=== PATIENT | male | born 1945 | race Caucasian/White ===

== ENCOUNTER → 2017-08-25 07:09 | Outpatient (CLI) | payer MEDICARE, BC, SELFPAY ==
--- NOTE | 2017-08-25 07:22 | NM_ITS ---
CARDIOLITE SPECT MYOCARDIAL PERFUSION SCAN, REST AND STRESS: EXERCISE STRESS [facility] REVIEW QGS EF AND WALL MOTION EVALUATION: QPS - PERFUSION EVALUATION HISTORY: Abnormal EKG, HTN, Tobacco use DOSE: 10.56 mCi technetium 99m mibi intravenously at rest followed by 31.7 mCi technetium 99m mibi following the intravenous ministration of 0.4 mg of Lexiscan. Resting blood pressure is 161/78. Stress blood pressure 171/95. FINDINGS: Ejection fraction is calculated to be 55%. Stress images reveal mildly decreased activity in the inferior wall and a portion of the septum while rest images reveal uniform myocardial activity gated images calculated ejection fraction of 55% with normal wall motion IMPRESSION: Inferior ischemia with partial septal ischemia. Normal ejection fraction normal wall motion. This is a moderate risk stress test
--- NOTE | 2017-08-25 07:49 | CA_ITS ---
PROCEDURE: 2-D M-mode and color Doppler study INDICATIONS FOR THE TEST: Chest pain COPD Heart Murmur Tobacco SmokingEX Palpitations Fatigue Syncope Edema Hypertension Diabetes Mellitus Rheumatic Fever SOB DOWNING ObesityXHyperlipidemia Family History HD Additional History AF,ABN EKG TDS OBESITY PATIENT INFORMATION HEIGHT: 74 WEIGHT:280 GENDER: Male B/P:161/78 2-D/M-MODE INTERPRETATION: 2-D MEASUREMENTS OBSERVED VALUES IN CMS Right Ventricular Dimension (RVDd) 3.7 Interventricular Septum (Thickness)(IVsd) 1.7 Left Ventricular Internal Dimensions(LVIDd) 5.5 Left Ventricular Posterior Wall (Thickness)(LVPWd) 1.3 Aortic Root 4.1 Aortic Cusp Separation 1.9 Left Atrial Dimensions (LAD) 4.2 2D 1. Left atrium is mildly enlarged, left ventricle is normal size, mild concentric left ventricular hypertrophy, visually estimated ejection fraction 55% with no obvious regional wall motion abnormality, endocardial poorly visualized. 2. The right atrium and right ventricle are mildly enlarged with normal contractility. 3. The aortic root is mildly enlarged, measuring 4.1 cm. The aortic valve is minimally thickened and fibrosed. 4. The mitral and tricuspid valve are grossly normal. 5. The pulmonic valve is poorly visualized 6. No significant pericardial effusion noted. DOPPLER INTERROGATION: Doppler interrogation of the aortic, mitral and tricuspid valve reveals presence of mild aortic, mild mitral and tricuspid regurgitation, tricuspid regurgitant jet velocity insufficient for calculation of the right ventricular systolic pressure, diastolic parameters are inconclusive. CONCLUSION: 1. Technically difficult study because of the patient's factor and poor acoustic windows 2. The left atrium is mildly enlarged, left ventricle is normal size, mild concentric left ventricular hypertrophy, visually estimated ejection fraction 55% with no obvious regional wall motion abnormality, endocardial subsequent poorly visualized. 3. Mildly enlarged right atrium and right ventricle, contractility of the right ventricle is normal. 4. Mildly enlarged aortic root, there is no aortic stenosis, there is mild aortic insufficiency. 5. Mild mitral and tricuspid regurgitation 6. No significant pericardial effusion noted.
--- NOTE | 2017-08-25 08:07 | HMH.ITSHM ---
BISOPROLOL ATORVASTATIN ALLOPURINOL MONTELUKAST LOSARTAN XARELTO ASA
== END ==
PROVIDERS: PCP Family Medicine; Visit Provider Internal Medicine
DX: R94.31 Abnormal electrocardiogram [ECG] [EKG] (principal)
CPT/HCPCS: 78452; 93017; 93306; A9502; J2785

== ENCOUNTER → 2018-05-07 13:25 | Outpatient (CLI) | payer MEDICARE, BC, SELFPAY ==
--- NOTE | 2018-05-07 13:29 | MR_ITS ---
MR lumbar spine wo con, MR 3-d myelogram/MRCP HISTORY: Low back pain ITS.REASON: BACK PAIN ORDERING PHYSICIAN: Lisandro Shelby PATIENT AGE: 73 years Comparison: None TECHNIQUE: Standard multiplanar multiecho sequences are performed without contrast. 3-D MIP and myelographic images are also rendered and reviewed FINDINGS: There is normal alignment. The spinal cord and at the L1-L2 level. T12-L1: Mild degenerative disc disease. L1-L2: Unremarkable. L2-L3: Unremarkable. L3-L4: Degenerative disc disease with bulging disc slightly eccentric toward the left along with facet and ligamentum flavum hypertrophy with moderate bilateral lateral recess and foraminal narrowing. There is transverse narrowing of the canal at approximately 11 to 12 mm. There are type II endplate changes and there is moderate bilateral foraminal narrowing slightly greater on the left. There is a small broad-based central disc protrusion slightly eccentric toward the left with moderate left lateral recess narrowing. L4-L5: Concentric bulging disc with a small broad-based central disc protrusion along with moderate facet and ligamentum flavum hypertrophy with moderate bilateral foraminal and lateral recess narrowing. There is transverse narrowing of the canal secondary to the facet ligamentum hypertrophy of approximately 12 mm. L5-S1: Moderate to severe Degenerative disc disease with concentric bulging disc along with a small broad-based central disc protrusion which is slightly eccentric toward the left. There is moderate to severe left-sided foraminal narrowing and moderate right-sided foraminal narrowing as well as bilateral lateral recess narrowing. There is mild retrolisthesis of L5 on S1 3 mm with small posterior endplate osteophytes. There are small bilateral renal cysts. IMPRESSION: 1. Mild multilevel lumbar spondylosis as detailed above. Please see above for detailed description at each level 2. L3-L4: Degenerative disc disease with bulging disc slightly eccentric toward the left along with facet and ligamentum flavum hypertrophy with moderate bilateral lateral recess and foraminal narrowing. There is transverse narrowing of the canal at approximately 11 to 12 mm. There are type II endplate changes and there is moderate bilateral foraminal narrowing slightly greater on the left. There is a small broad-based central disc protrusion slightly eccentric toward the left with moderate left lateral recess narrowing. 3. L4-L5: Concentric bulging disc with a small broad-based central disc protrusion along with moderate facet and ligamentum flavum hypertrophy with moderate bilateral foraminal and lateral recess narrowing. There is transverse narrowing of the canal secondary to the facet ligamentum hypertrophy of approximately 12 mm. 4. L5-S1: Moderate to severe Degenerative disc disease with concentric bulging disc along with a small broad-based central disc protrusion which is slightly eccentric toward the left. There is moderate to severe left-sided foraminal narrowing and moderate right-sided foraminal narrowing as well as bilateral lateral recess narrowing. There is mild retrolisthesis of L5 on S1 3 mm with small posterior endplate osteophytes.
--- NOTE | 2018-05-07 13:29 | MR_ITS ---
MR thoracic spine wo con HISTORY: Midthoracic back pain more on the left ITS.REASON: BACK PAIN ORDERING PHYSICIAN: Lisandro Shelby PATIENT AGE: 73 years Comparison: None TECHNIQUE: Standard multiplanar multiecho sequences are performed without contrast. 3-D MIP and myelographic images are also rendered and reviewed FINDINGS: There is kyphosis of the lower cervical spine at the T6-T7 level with multilevel degenerative disc disease. Small bola based disc protrusion/disc osteophyte complex noted at C6-C7. The degenerative disc disease at C7-T1. T1-T2 shows minimal bulging disc. T2-T3 unremarkable. T3-T4 mild degenerative disc disease. T4-T5: Moderate wedging of T4 with severe wedging of T5 and mild posterior buckling of the T5 vertebral body. No cord compression or canal stenosis evident at this time. T5-T6: Degenerative disc disease. T6-T7: Degenerative disc disease with minimal central disc protrusion. T7-T8, T8-T9: Degenerative disc disease. T9-T10: Degenerative disc disease with bulging disc with facet hypertrophic change and mild bilateral lateral recess and foraminal narrowing slightly greater on the right. T10-T11: Mild degenerative disc disease. T11-T12: Mild degenerative disc disease. There is a midthoracic scoliosis convex right. Severe wedge compression changes are present involving the T5 vertebral body with near complete collapse of the mid and anterior aspect of the T5 vertebral body. There is mild retropulsion of the posterior aspect of T5 with kyphosis at the T5 level. There are moderate wedge compression changes of T4 with loss of height anteriorly of approximately 40%. There is minimal buckling of the posterior cortex of T4. There is an expansile mass which involves the medial aspect of the left fourth rib measuring 3.6 x 3.5 cm. This extends to but does not cause widening of the neural foramen on the left at T3-T4. This is slightly hypointense on T1 and becomes hyperintense on T2 there is a small area of increased T2 signal involving the right T6 transverse process. IMPRESSION: 1. Severe wedge compression changes of T5 and moderate wedge compression changes of T4. Minimal retropulsion of the posterior aspect of T5 and minimal buckling of the posterior cortex of T4. No cord compression evident at this time 2. Expansile mass involving the left fourth rib medially at the costovertebral junction suspicious for neoplasm such as a metastatic lesion.. There is also question of a lesion at the right T6 transverse process. Consider bone scan for further evaluation 3. Multilevel degenerative disc disease in the thoracic spine and cervical as detailed above. Please see above for detailed description at each level
== END ==
PROVIDERS: PCP Family Medicine; Visit Provider Family Medicine
DX: M54.16 Radiculopathy, lumbar region
CPT/HCPCS: 72146; 72148; 76376

== ENCOUNTER → 2018-05-20 08:27 | Outpatient (CLI) | payer MEDICARE, BC, SELFPAY ==
--- NOTE | 2018-05-20 08:31 | NM_ITS ---
NM bone scan whole body CLINICAL INDICATION: Back pain, destructive rib lesion ITS.REASON: MASS LT 4TH RIB, LESIONS RT T6 ORDERING PHYSICIAN: Lisandro Shelby PATIENT AGE: 73 years Comparison: 05/07/2018, 05/20/2018 DOSE: 25.6 mCi technetium MDP FINDINGS: There is focal increased activity involving the T4 and T5 vertebral bodies corresponding to the areas of acute wedge compression fracture. There is a lytic lesion involving the left Fourth rib medially at the costovertebral junction as seen on the recent CT scan. This shows a photopenic region corresponding to the lytic area. In addition, there is increased activity involving the left ninth rib anteriorly corresponding to an old fracture on the CT scan. There is slight increase activity involving the posterior aspect of the right 10th rib and a small focal area of increased activity involving what appears to represent C7 or T1. IMPRESSION: 1. Abnormal activity involving the fourth and fifth thoracic vertebra consistent with acute wedge compression fracture. 2. Photopenic area involves the right fourth rib medially corresponding to the lytic lesion as seen on CT scan. 3. Old left ninth rib fracture. Overall the findings are somewhat indeterminate as to the etiology of the compression fractures which may very well just be osteoporotic however, the lytic lesion at the fourth rib does raise some concern for metastatic disease.
--- NOTE | 2018-05-20 08:32 | XR_ITS ---
XR chest 2V HISTORY: ITS.REASON: CHEST PAIN, left paraspinal mass ORDERING PHYSICIAN: Lisandro Shelby PATIENT AGE: 73 years COMPARISON: None FINDINGS: There is cardiomegaly without failure. There is a left upper lobe paraspinal mass measuring 4.3 cm. This corresponds to the lesion noted on the MRI at the T4 area. In addition, there are atelectatic changes in the left mid lung. There is also diffuse increased density in the right middle lobe. Wedge compression changes are once again noted involving the T5 vertebral body with mild wedging of T4. IMPRESSION: 1. 4 cm left paraspinal mass suspicious for malignancy. This corresponds to the abnormality noted on the MRI. 2. There are atelectatic changes in the left midlung. These were not present on an outside chest CT from 10/14/2016. A postobstructive process is a consideration. 3. Consolidation in the right middle lobe which also could be due to postobstructive process or pneumonia. Suggest CT of the chest without and with contrast for further evaluation and for biopsy planning if clinically desired
--- NOTE | 2018-05-20 10:14 | CT_ITS ---
CT chest wo/w con HISTORY: Left fourth rib mass, abnormal chest x-ray with possible hilar mass ITS.REASON: ABNORMAL FINDINGS IN LUNG FIELD ORDERING PHYSICIAN: Lisandro Shelby PATIENT AGE: 73 years COMPARISON: None Technique: Axial images obtained following the intravenous administration of 50 mL's of Isovue 370 with sagittal and coronal reformats. All CT scans at the facility use one or more dose reduction, viz: automated exposure control, ma/kV adjustment per patient size (including targeted exams where dose is matched to indication, i.e. head), or iterative reconstruction technique. FINDINGS: Study is somewhat limited as the patient had to be scanned in the right posterior oblique position. No mediastinal or hilar mass is evident. Coronary artery calcifications are present. There is prominence of the ascending aorta measuring up to 4.5 cm in transverse dimension. Patchy groundglass density is noted throughout the right upper and right lower lobe possibly due to positioning with that being the dependent lung. Atelectatic changes are present in the left upper lobe centrally but no central obstructing lesion is evident. No suspicious pulmonary masses are evident. Calcified nodes are present in the left hilum. There is a 3.5 cm lytic lesion involving the medial aspect of the left fourth rib with destruction of the costovertebral junction. There is also some mild destruction of the lateral aspect of the T4 vertebral body. This mass does not appear to extend to or arises from the neural foramen. In addition, there is compression fracture involving the T4 and T5 vertebra as described on the MRI severe wedging of T5 and moderate wedge compression fracture of T4. It is difficult to determine if the T5 fracture is pathologic due to the severe wedging or if it is merely secondary to osteoporotic compression fracture. No obvious soft tissue mass evident at the T4 or T5 region. No other bony abnormalities are evident. Upper abdominal images show postcholecystectomy changes. IMPRESSION: 1. 3.5 cm lytic lesion involving the medial aspect of the left fourth rib destruction the costovertebral junction. Neoplasm is considered and could be primary or metastatic. 2. Severe wedge compression fracture of T5 with moderate to severe wedge compression fracture T4. 3. No evidence of primary bronchogenic carcinoma. There are atelectatic changes in the left upper lobe. 4. Coronary artery calcifications with mild fusiform dilatation of the ascending aorta at 4.5 cm
--- NOTE | 2018-05-20 11:09 | HMH.ITSHM ---
Current Home Medications as stated by this patient Camilo Briceno JR or health and safety representative. []spironolactone bisoprolol asa atorvastatin allopurinol albuterol
[2018-05-20 12:32] LABS: Blood Urea Nitrogen 22 mg/dL (7-18); Creatinine,Serum 1.68 mg/dL (0.70-1.30); Estimated Glomerular Filt Rate 40 ml/min (>60); GFR (African American) 48 ML/MIN (>60)
== END ==
PROVIDERS: PCP Family Medicine; Referring Provider Family Medicine; Visit Provider Family Medicine
DX: R07.9 Chest pain, unspecified (principal); R91.8 Other nonspecific abnormal finding of lung field; C79.51 Secondary malignant neoplasm of bone
CPT/HCPCS: 36415; 71046; 71270; 78306; 82565; 84520; A9503; Q9967

== ENCOUNTER → 2018-06-03 10:07 | Outpatient (CLI) | payer MEDICARE, BC, SELFPAY ==
[2018-06-03 13:02] LABS: Basophils # 0.1 K/mm3 (0-0.2); Basophils % 0.5 % (0.1-2.0); Eosinophils # 0.1 K/mm3 (0.0-0.4); Eosinophils % 1.2 % (0.1-12.0); Hematocrit 45.3 % (42.0-52.0); Hemoglobin 13.9 g/dL (14.1-18.0); Lymphocytes # 1.7 K/mm3 (0.7-4.5); Mean Corpuscular HGB Conc 30.8 g/dL (31.8-35.4); Mean Corpuscular Hemoglobin 31.4 pg (27.0-31.2); Mean Corpuscular Volume 101.8 fl (80-94); Mean Platelet Volume 7.1 fl (7.4-10.4); Monocytes # 0.9 K/mm3 (0.1-1.0); Neutrophils % 74.3 % (37.0-80.0); Platelet Count 331 K/mm3 (142-424); Red Blood Count 4.44 M/mm3 (4.60-6.20); Red Cell Distribution Width 14.5 % (11.5-17.5); White Blood Count 10.8 K/mm3 (4.8-10.8)
[2018-06-03 13:22] LABS: Alanine Aminotransferase 31 U/L (12-78); Albumin Level 2.3 gm/dL (3.4-5.0); Albumin/Globulin Ratio 0.3 (1.1-1.8); Alkaline Phosphatase 66 U/L (46-116); Anion Gap 13.2 mEq/L (5-15); Aspartate Amino Transferase 32 U/L (15-37); Bilirubin,Total 0.8 mg/dL (0.2-1.0); Blood Urea Nitrogen 23 mg/dL (7-18); Calcium 9.3 mg/dL (8.5-10.1); Carbon Dioxide 25 mmol/L (21.0-32.0); Chloride 100 mmol/L (98-107); Creatinine,Serum 1.45 mg/dL (0.70-1.30); Estimated Glomerular Filt Rate 47 ml/min (>60); GFR (African American) 57 ML/MIN (>60); Globulin 6.6 gm/dl (1.3-3.2); Glucose 105 mg/dL (74-106); Potassium 4.2 mmoL/L (3.5-5.1); Sodium 134 mmol/L (136-145); Total Protein,Serum 8.9 gm/dL (6.4-8.2)
[2018-06-03 15:40] LABS: Prostate Specific Ag Screen 0.6 ng/mL (0.0-4.0)
[2018-06-04 15:23] LABS: Free Kappa Lt Chains 1170.7 mg/L (3.3-19.4); Free Lambda Lt Chains 5.7 mg/L (5.7-26.3)
[2018-06-04 16:19] LABS: Alpha-1-Globulin 0.3 g/dL (0.0-0.4); Alpha-2-Globulin 0.9 g/dL (0.4-1.0); Gamma Globulin 3.5 g/dL (0.4-1.8); Immunoglobulin G, Qn 3861 mg/dL (700-1600); Protein, Total 8.7 g/dL (6.0-8.5)
[2018-06-04 17:14] LABS: Immunoglobulin A, Qn 26 mg/dL (61-437)
[2018-06-04 17:15] LABS: Immunoglobulin M, Qn <5 mg/dL (15-143)
== END ==
PROVIDERS: Visit Provider Internal Medicine Medical Oncology
DX: C79.51 Secondary malignant neoplasm of bone (principal); Z12.5 Encounter for screening for malignant neoplasm of prostate
CPT/HCPCS: 36415; 80053; 82784; 83883; 84155; 84165; 85025; 86334; G0103

== ENCOUNTER 2018-06-20 23:24 | Inpatient (IN) ==
[2018-06-20 23:52] LABS: Basophils % 0.3 % (0.1-2.0); Eosinophils # 0.1 K/mm3 (0.0-0.4); Eosinophils % 0.7 % (0.1-12.0); Hematocrit 42.6 % (42.0-52.0); Hemoglobin 13.9 g/dL (14.1-18.0); Lymphocytes # 2.1 K/mm3 (0.7-4.5); Lymphocytes % 18.5 % (10-50); Mean Corpuscular HGB Conc 32.6 g/dL (31.8-35.4); Mean Corpuscular Hemoglobin 31.9 pg (27.0-31.2); Mean Corpuscular Volume 97.9 fl (80-94); Mean Platelet Volume 6.5 fl (7.4-10.4); Monocytes # 1.3 K/mm3 (0.1-1.0); Monocytes % 11.6 % (1.7-9.3); Neutrophils # 7.9 K/mm3 (1.8-7.8); Neutrophils % 68.8 % (37.0-80.0); Platelet Count 310 K/mm3 (142-424); Red Blood Count 4.35 M/mm3 (4.60-6.20); Red Cell Distribution Width 15.1 % (11.5-17.5); White Blood Count 11.4 K/mm3 (4.8-10.8)
[2018-06-20 23:58] LABS: Microscopic, Urine URINE MICROSCOPIC (MICROSCOPIC)
--- NOTE | 2018-06-21 00:06 | Emergency Department Note ---
ED Disposition Clinical Impression: Diverticulitis large intestine, Altered mental status, shelter current use of anticoagulant, Thoracic back pain, Bone mass Disposition: Admitted as Observation Condition on Discharge: Good Instructions: DI for Altered Mental Status Referrals: Lisandro Shelby [Primary Care Provider] - Time of Disposition: 01:34 - Critical Care Critical Care Time: No Attestation: On 06/20/18, the high probability of a clinically significant, sudden or life threatening deterioration of the following system(s) required my full and direct attention, intervention and personal management. The time I documented below is in addition to time spent performing reported procedures but includes the following listed in this critical care notation. Medical Decision Making - Medical Records Medical records reviewed: Yes: I reviewed the patient's medical records. - Hector Inquiry Pt receiving controlled substance: No Hector was queried for this patient: No Vital Signs: 06/20/18 23:25 06/21/18 01:17 Temperature 98.1 F 98.2 F Temperature Source Oral Oral Pulse Rate [Right Radial] 71 72 Respiratory Rate 18 16 Blood Pressure [Right Arm] 158/96 H 150/77 H Blood Pressure Mean [Right Arm] 116 101 Blood Pressure Position [Right Arm] Sitting 02 Sat by Pulse Oximetry 94 L 97 Oxygen Delivery Method Room Air Room Air - Lab Data Lab Results 06/20/18 23:40: WBC 11.4 H, RBC 4.35 L, Hgb 13.9 L, Hct 42.6, MCV 97.9 H, MCH 31.9 H, MCHC 32.6, RDW 15.1, Plt Count 310, MPV 6.5 L, Neut % (Auto) 68.8, Lymph % (Auto) 18.5, [place] % (Auto) 11.6 H, Eos % (Auto) 0.7, Baso % (Auto) 0.3, Neut # (Auto) 7.9 H, Lymph # (Auto) 2.1, [place] # (Auto) 1.3 H, Eos # (Auto) 0.1, Baso # (Auto) 0.0, ESR > 120 H 06/20/18 23:40: Sodium 136, Potassium 3.9, Chloride 101, Carbon Dioxide 27, Anion Gap 11.9, BUN 25 H, Creatinine 1.73 H, Estimated Creat Clear 58, Estimated GFR 39 L, Est GFR ( Amer) 47 L, Glucose 114 H, Calcium 9.3, Total Bilirubin 0.7, AST 13 L, ALT 19, Alkaline Phosphatase 73, Troponin I < 0.02, C- Reactive Protein 0.7, Total Protein 9.7 H, Albumin 2.3 L, Globulin 7.4 H, Albumin/Globulin Ratio 0.3 L 06/20/18 23:43: Urine Color Yellow, Urine Appearance Clear, Urine pH 5.5, Ur Specific [place] >= 1.030, Urine Protein 2+, Urine Glucose (UA) Negative, Urine Ketones Negative, Urine Blood Negative, Urine Nitrate Negative, Urine Bilirubin Negative, Urine Urobilinogen 0.2, Ur Leukocyte Esterase Negative, Urine WBC Occasional, Amorphous Sediment Trace 06/20/18 23:53: Urine Opiates Screen Positive H, Urine Methadone Screen Negative, Ur Barbituates Screen Negative, Ur Phencyclidine Scrn Negative, Ur Amphetamines Screen Negative, U Benzodiazepines Scrn Negative, Urine Cocaine Screen Negative, U Marijuana (THC) Screen Negative Result diagrams: 06/20/18 23:40 06/20/18 23:40 Orders (Tests/Meds): ED MEDICATIONS Generic Name Dose Route Start Last Admin Trade Name Freq PRN Reason Stop Dose Admin Ceftriaxone Sodium 2 gm/ 100 mls @ 200 mls/hr 06/21/18 01:00 06/21/18 01:01 Sodium Chloride IV 07/05/18 00:59 200 mls/hr Q24H VALERIA Administration Protocol Metronidazole 500 mg in 100 mls @ 100 mls/hr 06/21/18 01:00 Flagyl 500mg/100ml Ivpb IV 07/05/18 00:59 Q8H VALERIA Protocol Sodium Chloride 10 ml 06/20/18 23:41 Saline Flush 10ml Syringe IV 07/20/18 23:40 NEEDED PRN Maintain IV Site ORDERS Category Date Time Status CT abdomen pelvis wo con Stat Cat Scan 06/21/18 00:[address] head/brain wo con Stat Cat Scan 06/20/18 23:41 Taken XR chest portable Stat Exams 06/21/18 00:01 Taken Urinalysis and Microscopic Stat Lab 06/20/18 23:43 Ordered - Radiology Data #2 Image(s): Other (ct brain) negative brain for acute findings - CT Data CT Scan: Abdomen, Pelvis Time Received: 12:[address] Reviewed: Yes: I have reviewed the patient's CT results Findings Narrative: c/w diverticulitis, localized and without evidence of perf sigmoid colon. Altered Mental Status HPI - General Chief Complaint: Altered Mental Status Stated Complaint: Confused Time Seen by Provider: 06/20/18 23:30 Mode of Arrival: Wheelchair Limitations: confused Description of Symptoms (Recalled from ER Triage Doc. by RN): patients son and reports increased confusion over the past few days, reports patient had back surgery last week and medication was changed from oxycontin to hydrocodone - History of Present Illness HPI narrative: balloon cemented kyphoplasty 5 days ago. Confusion on oxycodone. Switched to hydrocodone and risperdal added for behavioral changes. No improvement, now worsening. Family states he had compression fractures upper t spine without injury, concern is of multiple myelom per Dr. Gill of [facility] on. Had biopsy , results pending. - Related Data Home Medications Medication Instructions Recorded Confirmed allopurinol 300 mg tablet 300 mg PO DAILY tab 08/27/17 06/21/18 aspirin 81 mg tablet,delayed 81 mg PO DAILY tab 08/27/17 06/21/18 release montelukast 10 mg tablet 10 mg PO QHS 08/27/17 06/21/18 rivaroxaban 20 mg tablet 20 mg PO DAILY tab 08/27/17 06/21/18 atorvastatin 20 mg tablet 20 mg PO QHS tab 11/25/17 06/21/18 bisoprolol fumarate 5 mg tablet 2.5 mg PO DAILY tab 11/25/17 06/21/18 fluticasone 50 mcg/actuation nasal 1 spray INTRANASAL DAILY PRN g 11/25/17 06/21/18 spray,suspension furosemide 40 mg tablet 40 mg PO DAILY 30 Days #30 tab 03/24/18 06/21/18 spironolactone 50 mg tablet 50 mg PO DAILY 30 Days #30 tab 03/24/18 06/21/18 Albuterol Sulfate [Albuterol 2.5 mg INHALATION QID 05/13/18 06/21/18 0.083% 2.5mg/3mL neb] risperiDONE [Risperidone] 0.5 mg PO DAILY 06/21/18 06/21/18 Previous Rx's Medication Instructions Recorded Hydrocodone/Acetaminophen 1 each PO Q4-6H PRN #20 tab 05/13/18 [Hydrocodon-Acetaminoph 7.5-325] Allergies Allergy/AdvReac Type Severity Reaction Status Date / Time No Known Allergies Allergy Verified 06/03/18 09:06 [facility] History - Hepatitis A Screen Drug use history?: No High risk sexual behaviors?: No History of sexually transmitted infection?: No Currently employed?: No Childcare worker?: No Do you have indoor plumbing?: Yes Do you have electricity?: Yes Attestation statement:: This patient has been screened for Hepatitis A risk factors. I have reviewed the patient's past medical history: Yes Medical History: Reports:: Atrial Fibrillation, Congestive Heart Failure, Hyperlipidemia, Hypertension, Lung Disease (smoker) Denies:: Cancer, Diabetes Mellitus Type 1, Diabetes Mellitus Type 2, Internal Pacemaker, MRSA, Seizures Other Medical History: Denies: Blood Transfusion Reaction Laterality Cases: Bilateral: Myringotomy (Ear Tubes), Other Other Surgeries: Yes: Cardiac Catheterization, Cholecystectomy, Sinus Surgery. No: Pacemaker Amputation: No Fractures: No Comment: [facility] MAR 2018-medical mgt - Social History Smoking Status: Current every day smoker Tobacco Type: cigarettes # Packs/Day (cigarettes): 1 Alcohol Intake: never Substance Use Type: denies use Occupational Status: retired Housing: house Household Members: spouse - Psychiatric History Expresses thoughts of harming self/others: None Suicide Plan Description: No Plan Family Hx:: Heart Attack Comment: mother had sudden cardiac at age 42 ROS Obtained: Yes All systems reviewed & no additional complaints, Yes other (only some history obtainable from patient, confused.) - Constitutional Constitutional: Denies chills, Denies fever(s) - Eyes Eyes: Reports system reviewed and no additional complaints, except as docu, Denies change in vision - Cardiovascular Cardiovascular: Denies chest pain, Denies diaphoresis, Denies dyspnea, Denies rapid heart rate, Denies slow heart rate - Respiratory Respiratory: Yes system reviewed and no additional complaints, except as docu, No chest congestion, No cough, No dyspnea - Gastrointestinal Gastrointestingal: Reports: system reviewed and no additional complaints, except as docu, abdominal pain. Denies: diarrhea, bright red blood in stools, nausea, vomiting - Genitourinary Male Genitourinary: Reports system reviewed and no additional complaints, except as docu, Denies difficulty urinating - Musculoskeletal Musculoskeletal: Denies limited range of motion, Denies muscle weakness, Denies muscle aches - Integumentary/Breasts Skin/Breast: Denies rash - Neurologic Neurologic: Reports behavioral changes, Denies focal weakness, Denies headache(s), Denies loss of vision, Denies tingling/numbness/burning sensations, Denies seizure-like activity, Denies syncope, Denies tremor(s) Physical Exam - General General appearance: alert, other (confused to date, place, circumstances.) - Head Head exam: atraumatic, normocephalic, normal inspection - Eye Eye exam: Present: normal appearance, PERRL, EOMI - Neck Neck exam: Present: normal inspection, full ROM, trachea midline. Absent: meningismus, lymphadenopathy - Chest Chest inspection: Present: normal inspection, symmetric chest wall rise. Absent: tenderness - Respiratory Respiratory exam: Present: normal lung sounds bilaterally. Absent: respiratory distress - Cardiovascular Cardiovascular exam: Present: regular rate, irregular rhythm - Abdominal Exam Abdominal exam: Present: soft. Absent: distention, tenderness, guarding, rebound, rigidity, mass - Extremities Exam Extremities exam: Present: normal inspection, full ROM, normal capillary refill. Absent: calf tenderness - Neurological Exam Neurological exam: Present: alert, oriented X3 - Psychiatric Psychiatric exam: Present: other (lies quietly, confused with conversation. Not agitated). Absent: normal affect, normal mood, anxious - Skin Skin exam: Present: warm, dry, normal color. Absent: rash - Lymphatic Lymphatic Findings: no adenopathy
[2018-06-21 00:10] LABS: Amphetamine/Metha Screen,Urine Negative ng/mL (<1000); Barbiturates Screen,Urine Negative ng/mL (<200); Benzodiazepines Screen,Urine Negative ng/mL (<200); Cannabinoid Screen,Urine Negative ng/mL (<50); Cocaine Screen,Urine Negative ng/mL (<300); Methadone Screen,Urine Negative ng/mL (<300); Opiate Screen,Urine Positive ng/mL (<300); Phencyclidine Screen,Urine Negative ng/mL (<25)
[2018-06-21 00:10] LABS: Alanine Aminotransferase 19 U/L (12-78); Albumin Level 2.3 gm/dL (3.4-5.0); Albumin/Globulin Ratio 0.3 (1.1-1.8); Alkaline Phosphatase 73 U/L (46-116); Anion Gap 11.9 mEq/L (5-15); Aspartate Amino Transferase 13 U/L (15-37); Bilirubin,Total 0.7 mg/dL (0.2-1.0); Blood Urea Nitrogen 25 mg/dL (7-18); C-Reactive Protein 0.7 mg/L (0.0-0.9); Calcium 9.3 mg/dL (8.5-10.1); Carbon Dioxide 27 mmol/L (21.0-32.0); Chloride 101 mmol/L (98-107); Globulin 7.4 gm/dl (1.3-3.2); Glucose 114 mg/dL (74-106); Potassium 3.9 mmoL/L (3.5-5.1); Sodium 136 mmol/L (136-145); Total Protein,Serum 9.7 gm/dL (6.4-8.2)
[2018-06-21 00:14] LABS: Appearance,Urine CLEAR (Clear); Bilirubin,Urine Negative (Negative); Blood, Urine Negative (Negative); Color,Urine YELLOW (Yellow); Glucose,Urine (UA) Negative (Negative); Ketones,Urine Negative (Negative); Leukocyte Esterase,Urine Negative (Negative); PH,Urine 5.5 (5.0-8.5); Protein,Urine 2+ (Negative); Specific Gravity, Urine >= 1.030 (1.005-1.030); Urobilinogen,Urine 0.2 EU/dl (0.2)
[2018-06-21 00:16] LABS: Amorphous Sediment,Urine Trace /lpf; WBC,Urine Occasional #/hpf (0-3)
[2018-06-21 00:40] LABS: Erythrocyte Sedimentation Rate > 120 mm/hr (0-20)
[2018-06-21 06:50] LABS: Basophils # 0.1 K/mm3 (0-0.2); Basophils % 0.5 % (0.1-2.0); Eosinophils # 0.1 K/mm3 (0.0-0.4); Eosinophils % 0.8 % (0.1-12.0); Hematocrit 39.6 % (42.0-52.0); Lymphocytes # 1.9 K/mm3 (0.7-4.5); Lymphocytes % 17.9 % (10-50); Mean Corpuscular HGB Conc 32.7 g/dL (31.8-35.4); Mean Corpuscular Hemoglobin 32.1 pg (27.0-31.2); Mean Corpuscular Volume 97.9 fl (80-94); Mean Platelet Volume 6.6 fl (7.4-10.4); Monocytes # 0.7 K/mm3 (0.1-1.0); Monocytes % 7.2 % (1.7-9.3); Neutrophils # 7.6 K/mm3 (1.8-7.8); Neutrophils % 73.6 % (37.0-80.0); Platelet Count 261 K/mm3 (142-424); Red Blood Count 4.04 M/mm3 (4.60-6.20); White Blood Count 10.3 K/mm3 (4.8-10.8)
[2018-06-21 07:08] LABS: Anion Gap 11.6 mEq/L (5-15); Calcium 8.9 mg/dL (8.5-10.1); Potassium 3.6 mmoL/L (3.5-5.1)
--- NOTE | 2018-06-21 08:08 | Pharmacy Consult Notes ---
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
--- NOTE | 2018-06-21 08:49 | History & Physical Report ---
*Admission Date: 06/21/18 *Chief complaint: Confusion and fever *History of present illness: 73-year-old white male who follows with a primary care physician in [facility], who over the past couple of months has had significant problems with vertebral pain and fractures, and has been diagnosed with possible multiple myeloma -biopsies pending and workup is ongoing per Dr. Gill in hematology/oncology. He has undergone vertebroplasty 5 or 6 days ago, and since that time is become very confused and somewhat combative at home. Initially he had been placed on oxycodone but this was changed to hydrocodone because of his mental status changes and he was given Risperdal therapy. This has not improved and he was brought to the emergency department by his family late last night. The family is not here this morning and Mr. Briceno is a very poor historian because of his memory issues and ongoing delirium. However, ER workup revealed a new mass in the chest, anemia, renal insufficiency and evidence of diverticulosis/diverticulitis on CT scan of the abdomen. He has been admitted to hospital for IV antibiotics. IV fluids and further diagnostic testing. [facility] History I have reviewed the patient's past medical history: Yes Medical History: Reports:: Atrial Fibrillation, Cancer, Congestive Heart Failure, Hyperlipidemia, Hypertension, Lung Disease (smoker) Denies:: Diabetes Mellitus Type 1, Diabetes Mellitus Type 2, Internal Pacem cathleen, MRSA, Seizures Have you ever received a pneumonia vaccine?: Yes Have you received a flu vaccine this season?: Yes Other Medical History: Denies: Blood Transfusion Reaction Laterality Cases: Bilateral: Myringotomy (Ear Tubes), Other Other Surgeries: Yes: Cardiac Catheterization, Cholecystectomy, Sinus Surgery. No: Pacemaker Amputation: No Fractures: No - *Social History Smoking Status: Current every day smoker Tobacco Type: cigarettes # Packs/Day (cigarettes): 1 Alcohol Intake: never Substance Use Type: denies use Occupational Status: retired, disabled Housing: house Household Members: spouse Travel in the last 8 weeks: None - Psychiatric History Expresses thoughts of harming self/others: None Suicide Plan Description: No Plan Family Hx:: Anemia, Heart Attack Review of Systems - Review of Systems Review of systems:: unable to obtain Review of systems unreliable because of patient's mental status changes. He denies specific pains or breathing problems however. - *Neurologic Reports behavioral changes, Denies localized weakness, Denies headache(s), Denies loss of vision, Denies tingling/numbness/burning sensations, Denies seizure-like activity, Denies fainting, Denies tremor(s) Meds Home Medications Medication Instructions Recorded Confirmed Type allopurinol 300 mg tablet 300 mg PO DAILY tab 08/27/17 06/21/18 History aspirin 81 mg tablet,delayed 81 mg PO DAILY tab 08/27/17 06/21/18 History release montelukast 10 mg tablet 10 mg PO QHS 08/27/17 06/21/18 History rivaroxaban 20 mg tablet 20 mg PO DAILY tab 08/27/17 06/21/18 History atorvastatin 20 mg tablet 20 mg PO QHS tab 11/25/17 06/21/18 History bisoprolol fumarate 5 mg tablet 2.5 mg PO DAILY tab 11/25/17 06/21/18 History fluticasone 50 mcg/actuation nasal 1 spray INTRANASAL DAILY PRN g 11/25/17 06/21/18 History spray,suspension furosemide 40 mg tablet 40 mg PO DAILY 30 Days #30 tab 03/24/18 06/21/18 History spironolactone 50 mg tablet 50 mg PO DAILY 30 Days #30 tab 03/24/18 06/21/18 History Albuterol Sulfate [Albuterol 2.5 mg INHALATION QID 05/13/18 06/21/18 History 0.083% 2.5mg/3mL neb] Hydrocodone/Acetaminophen 1 each PO Q4-6H PRN #20 tab 05/13/18 06/21/18 Rx [Hydrocodon-Acetaminoph 7.5-325] risperiDONE [Risperidone] 0.5 mg PO DAILY 06/21/18 06/21/18 History Allergies Allergy/AdvReac Type Severity Reaction Status Date / Time No Known Allergies Allergy Verified 06/03/18 09:06 Exam Vital signs and Labs for Last 24 Hours: Temp Pulse Resp BP Pulse Ox 97.9 F 83 16 138/86 94 L 06/21/18 04:00 06/21/18 04:00 06/21/18 04:00 06/21/18 04:00 06/21/18 04:00 Laboratory Results - last 24 hr 06/20/18 23:40: WBC 11.4 H, RBC 4.35 L, Hgb 13.9 L, Hct 42.6, MCV 97.9 H, MCH 31.9 H, MCHC 32.6, RDW 15.1, Plt Count 310, MPV 6.5 L, Neut % (Auto) 68.8, Lymph % (Auto) 18.5, [place] % (Auto) 11.6 H, Eos % (Auto) 0.7, Baso % (Auto) 0.3, Neut # (Auto) 7.9 H, Lymph # (Auto) 2.1, [place] # (Auto) 1.3 H, Eos # (Auto) 0.1, Baso # (Auto) 0.0, ESR > 120 H 06/20/18 23:40: Sodium 136, Potassium 3.9, Chloride 101, Carbon Dioxide 27, Anion Gap 11.9, BUN 25 H, Creatinine 1.73 H, Estimated Creat Clear 58, Estimated GFR 39 L, Est GFR ( Amer) 47 L, Glucose 114 H, Calcium 9.3, Total Bilirubin 0.7, AST 13 L, ALT 19, Alkaline Phosphatase 73, Troponin I < 0.02, C- Reactive Protein 0.7, Total Protein 9.7 H, Albumin 2.3 L, Globulin 7.4 H, Albumin/Globulin Ratio 0.3 L 06/20/18 23:43: Urine Color Yellow, Urine Appearance Clear, Urine pH 5.5, Ur Specific [place] >= 1.030, Urine Protein 2+, Urine Glucose (UA) Negative, Urine Ketones Negative, Urine Blood Negative, Urine Nitrate Negative, Urine Bilirubin Negative, Urine Urobilinogen 0.2, Ur Leukocyte Esterase Negative, Urine WBC Occasional, Amorphous Sediment Trace 06/20/18 23:53: Urine Opiates Screen Positive H, Urine Methadone Screen Negative, Ur Barbituates Screen Negative, Ur Phencyclidine Scrn Negative, Ur Amphetamines Screen Negative, U Benzodiazepines Scrn Negative, Urine Cocaine Screen Negative, U Marijuana (THC) Screen Negative 06/21/18 06:17: WBC 10.3, RBC 4.04 L, Hgb 13.0 L, Hct 39.6 L, MCV 97.9 H, MCH 32.1 H, MCHC 32.7, RDW 15.0, Plt Count 261, MPV 6.6 L, Neut % (Auto) 73.6, Lymph % (Auto) 17.9, [place] % (Auto) 7.2, Eos % (Auto) 0.8, Baso % (Auto) 0.5, Neut # (Auto) 7.6, Lymph # (Auto) 1.9, [place] # (Auto) 0.7, Eos # (Auto) 0.1, Baso # (Auto) 0.1 06/21/18 06:17: Sodium 137, Potassium 3.6, Chloride 102, Carbon Dioxide 27, Anion Gap 11.6, BUN 21 H, Creatinine 1.39 H, Estimated Creat Clear 75, Estimated GFR 50 L, Est GFR ( Amer) 60 D, Glucose 103, Calcium 8.9 I & O for Last 24 hours: Intake & Output 06/18/18 06/19/18 06/20/18 06/21/18 11:59 11:59 11:59 11:59 Intake Total 527 / 527 Output Total 750 / 750 Balance -223 / -223 Weight 255 lb 3 oz Narrative: Patient is alert. Oriented x1 only. Is cooperative and pleasant. Follows commands. Cranial nerves are intact. Lungs have rhonchi in all lung mariscal. Heart rate irregular. Rate controlled. Flow murmur noted. Abdomen soft, minimal tenderness in both lower quadrants but no rebound or guarding. No extremity edema or clubbing. Able to move all extremities well but is globally weak. Assessment and Plan (1) Altered mental status Current visit: Yes Status: Acute Category: Medical Code(s): R41.82 - Altered mental status, unspecified Multiple etiologies-most probably metabolic versus used after his procedures. CT scan of head is reassuring. Continue current therapies and hold narcotics as able. (2) Bone mass Current visit: Yes Status: Acute Category: Medical Code(s): M89.9 - Disorder of bone, unspecified Dr. Gill's note reviewed. Most likely malignancy and workup/biopsies are pending. (3) Diverticulitis large intestine Current visit: Yes Status: Acute Category: Medical Code(s): K57.32 - Diverticulitis of large intestine without perforation or abscess without bleeding On antibiotics. Continue therapy. 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 No active bleeding. Continue Xarelto.
[2018-06-22 06:11] LABS: Basophils # 0.1 K/mm3 (0-0.2); Basophils % 0.4 % (0.1-2.0); Eosinophils # 0.1 K/mm3 (0.0-0.4); Eosinophils % 0.7 % (0.1-12.0); Hematocrit 39.7 % (42.0-52.0); Hemoglobin 12.9 g/dL (14.1-18.0); Lymphocytes # 1.6 K/mm3 (0.7-4.5); Lymphocytes % 15.6 % (10-50); Mean Corpuscular HGB Conc 32.5 g/dL (31.8-35.4); Mean Corpuscular Hemoglobin 31.6 pg (27.0-31.2); Mean Corpuscular Volume 97.2 fl (80-94); Mean Platelet Volume 6.5 fl (7.4-10.4); Monocytes # 1.2 K/mm3 (0.1-1.0); Monocytes % 11.8 % (1.7-9.3); Neutrophils # 7.2 K/mm3 (1.8-7.8); Neutrophils % 71.4 % (37.0-80.0); Platelet Count 280 K/mm3 (142-424); Red Blood Count 4.08 M/mm3 (4.60-6.20); White Blood Count 10.1 K/mm3 (4.8-10.8)
[2018-06-22 06:30] LABS: Albumin Level 1.9 gm/dL (3.4-5.0); Albumin/Globulin Ratio 0.3 (1.1-1.8); Anion Gap 11.5 mEq/L (5-15); Bilirubin,Total 0.5 mg/dL (0.2-1.0); Calcium 8.5 mg/dL (8.5-10.1); Globulin 6.7 gm/dl (1.3-3.2); Potassium 3.5 mmoL/L (3.5-5.1); Total Protein,Serum 8.6 gm/dL (6.4-8.2)
--- NOTE | 2018-06-22 07:26 | Progress Note ---
Internal Medicine - PN: Subj *Date: 06/22/18 *Time: 07:23 Interval history: Patient good spirits this morning eating breakfast. Much more conversant. Nursing reports that he was a little confused about the time through the night when he would wake up but otherwise has been very appropriate. asks about home. Reports that his pain is some better. Denies breathing problems. Exam Vital signs and Labs for Last 24 Hours: Temp Pulse Resp BP Pulse Ox 97.5 F L 83 20 171/96 H 96 06/22/18 04:00 06/22/18 04:00 06/22/18 04:00 06/22/18 04:00 06/22/18 04:00 Laboratory Results - last 24 hr 06/22/18 05:39: WBC 10.1, RBC 4.08 L, Hgb 12.9 L, Hct 39.7 L, MCV 97.2 H, MCH 31.6 H, MCHC 32.5, RDW 15.0, Plt Count 280, MPV 6.5 L, Neut % (Auto) 71.4, Lymph % (Auto) 15.6, [place] % (Auto) 11.8 H, Eos % (Auto) 0.7, Baso % (Auto) 0.4, Neut # (Auto) 7.2, Lymph # (Auto) 1.6, [place] # (Auto) 1.2 H, Eos # (Auto) 0.1, Baso # (Auto) 0.1 06/22/18 05:39: Sodium 135 L, Potassium 3.5, Chloride 101, Carbon Dioxide 26, Anion Gap 11.5, BUN 18, Creatinine 1.34 H, Estimated Creat Clear 76, Estimated GFR 52 L, Est GFR ( Amer) 63, Glucose 98, Calcium 8.5, Total Bilirubin 0.5, AST 9 L D, ALT 13 D, Alkaline Phosphatase 66, Total Protein 8.6 H, Albumin 1.9 L D, Globulin 6.7 H, Albumin/Globulin Ratio 0.3 L I & O for Last 24 hours: Intake & Output 06/19/18 06/20/18 06/21/18 06/22/18 11:59 11:59 11:59 11:59 Intake Total 627 / 627 2709 / 2709 Output Total 750 / 750 1500 / 1500 Balance -123 / -123 1209 / 1209 Weight 255 lb 3 oz 249 lb 5 oz Narrative: Patient is awake and oriented as noted above. Oropharynx clear. Lungs air movement. No crackles or rhonchi. Regular without murmurs. Abdomen soft, nontender. Much improved over yesterday's exam. Able to move extremities well but still has back pain. Assessment and Plan (1) Altered mental status Current visit: Yes Status: Acute Category: Medical Code(s): R41.82 - Altered mental status, unspecified Patient is vastly improved. Probably because of cessation of narcotics and antibiotic treatment of his infectious disease issues. PT/OT evaluation to see about self-care activities. Pain management consultation to see about pain option that might help him without opiate therapy. My hope is that his kyphoplasty that was done in [place] a couple of days ago would be beginning to help his pain (2) Bone mass Current visit: Yes Status: Acute Category: Medical Code(s): M89.9 - Disorder of bone, unspecified (3) Diverticulitis large intestine Current visit: Yes Status: Acute Category: Medical Code(s): K57.32 - Diverticulitis of large intestine without perforation or abscess without bleeding Remains on metronidazole. Started on ceftriaxone. I switched this to levofloxin for better coverage of possible pneumonia/atypical organisms as well as enteric pathogens. 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 (6) Diverticulitis Current visit: Yes Status: Acute Category: Medical Code(s): K57.92 - Diverticulitis of intestine, part unspecified, without perforation or abscess without bleeding Please see comments about antibiotics above. Patient clinically improved.
--- NOTE | 2018-06-22 14:13 | Consult Report ---
[facility] Pain Management SOAP Note Subjective:: Patient is a pleasant 73-year-old white male who is inpatient secondary to pain and confusion. Patient states today he is not in pain. Patient states most of his pain is actually abdominal pain he states that it travels across the abdomen and is burning in nature. Denies any rashes. Patient unable to take oral narcotics due to confusion. Patient is oriented to person and place at this time. Patient states that after his kyphoplasty he was no longer having any back pain however now he has this differing pain. I do not believe that any epidural injections at this time beneficial would be beneficial for him. Patient may benefit from low-dose gabapentin or Lyrica. Patient may also benefit from peripheral nerve block of the abdomen if burning sensation [address] Queen has reviewed this note and agrees with this plan of care. This note was dictated using voice recognition software and may contain errors or omissions
[2018-06-23 07:21] LABS: Albumin Level 1.9 gm/dL (3.4-5.0); Albumin/Globulin Ratio 0.3 (1.1-1.8); Anion Gap 10.6 mEq/L (5-15); Bilirubin,Total 0.5 mg/dL (0.2-1.0); Calcium 8.6 mg/dL (8.5-10.1); Globulin 6.8 gm/dl (1.3-3.2); Potassium 3.6 mmoL/L (3.5-5.1); Total Protein,Serum 8.7 gm/dL (6.4-8.2)
[2018-06-23 07:23] LABS: Basophils # 0.1 K/mm3 (0-0.2); Basophils % 0.5 % (0.1-2.0); Eosinophils # 0.1 K/mm3 (0.0-0.4); Eosinophils % 0.9 % (0.1-12.0); Hematocrit 40.7 % (42.0-52.0); Hemoglobin 13.2 g/dL (14.1-18.0); Lymphocytes # 1.6 K/mm3 (0.7-4.5); Mean Corpuscular HGB Conc 32.4 g/dL (31.8-35.4); Mean Corpuscular Hemoglobin 31.9 pg (27.0-31.2); Mean Corpuscular Volume 98.4 fl (80-94); Mean Platelet Volume 6.6 fl (7.4-10.4); Monocytes # 1.1 K/mm3 (0.1-1.0); Monocytes % 11.4 % (1.7-9.3); Neutrophils # 6.7 K/mm3 (1.8-7.8); Neutrophils % 70.3 % (37.0-80.0); Platelet Count 284 K/mm3 (142-424); Red Blood Count 4.13 M/mm3 (4.60-6.20); Red Cell Distribution Width 15.1 % (11.5-17.5); White Blood Count 9.6 K/mm3 (4.8-10.8)
--- NOTE | 2018-06-23 08:47 | Discharge Summary ---
General - General Admission date:: 06/21/18 Discharge date: 06/23/18 HPI HPI: 73-year-old white male who follows with a primary care physician in [facility], who over the past couple of months has had significant problems with vertebral pain and fractures, and has been diagnosed with possible multiple myeloma -biopsies pending and workup is ongoing per Dr. Gill in hematology/oncology. He has undergone vertebroplasty 5 or 6 days ago, and since that time is become very confused and somewhat combative at home. Initially he had been placed on oxycodone but this was changed to hydrocodone because of his mental status changes and he was given Risperdal therapy. This has not improved and he was brought to the emergency department by his family late last night. The family is not here this morning and Mr. Briceno is a very poor historian [facility] se of his memory issues and ongoing delirium. However, ER workup revealed a new mass in the chest, anemia, renal insufficiency and evidence of diverticulosis/diverticulitis on CT scan of the abdomen. He has been admitted to hospital for IV antibiotics. IV fluids and further diagnostic testing. Hospital Course Hospital Course: Patient was admitted to hospital. Narcotic pain medications were held and over the next 24 hours he began to clear from his mental status delirium. Continue to exhibit memory loss and occasional agitation but became much more oriented and cooperative. Physical therapy consultation was done and they worked with him for a couple days that he was here and he was able to ambulate with minimal assistance with walker and help with transfers. Chest x-ray showed pneumonic type infiltrate and CT scan of chest was done which showed destructive lesion in the left fourth rib along with minimal pneumonic infiltrate. He was continued on levofloxacin for this probable pneumonia and he defervesced nicely. CT scan of abdomen showed evidence of diverticulosis with mild diverticulitis and levofloxacin and Flagyl were used to treat this with good improvement in abdominal pain. He continued to have some upper abdominal pain but no vomiting, constipation or diarrhea. P.o. intake improved and his sensorium improved closer to his baseline level. Long discussion with his and son about ongoing treatment plan. They do indicate that he maintains a DNR status. This was respected while in the hospital. He follow with oncology because of his possible spinal/rib cancerous lesions, interestingly official biopsy report from the kyphoplasty procedure apparently was read as no malignancy. I feel that there is probably some other likely malignancy somewhere given the appearance of his bone lesions. Bone marrow biopsy has been done apparently results will be back tomorrow when he sees hematology/oncology here with Dr. Gill. Patient this morning was alert, able to go to the bathroom with minimal assistance. Wishing to be discharged and his and son felt that they could manage at home with home health. He will be discharged home with levofloxacin, Flagyl, gabapentin for pain control and the cessation of narcotics at this point because of his mental status changes. He will follow-up with hematology/oncology tomorrow, and in my office in the next week or so. Objective Vital signs: Temp Pulse Resp BP Pulse Ox 97.5 F L 76 18 163/84 H 96 06/23/18 08:00 06/23/18 08:00 06/23/18 08:00 06/23/18 08:00 06/23/18 08:00 Narrative: Patient is awake. Oriented x2. Responds to commands. Recognizes family and remembers me from prior rounds. Vastly improved over admission neurologic exam. Anterior lung mariscal are clear. Heart rate regular. Abdomen is soft, minimal tenderness in the right upper abdomen on the surface consistent with a pulled muscle versus mild hernia pain. No deep abdominal pain or masses palpable. No skin rash noted. No edema or clubbing. Oropharynx clear. Cranial nerves are intact. Lungs are vastly improved. Good air movement, minimal rhonchi in the left base but no crackles. Results Labs on day of discharge: Labs from last 24 hours 06/23/18 06/23/18 06:14 06:14 WBC 9.6 RBC 4.13 L Hgb 13.2 L Hct 40.7 L MCV 98.4 H MCH 31.9 H MCHC 32.4 RDW 15.1 Plt Count 284 MPV 6.6 L Neut % (Auto) 70.3 Lymph % (Auto) 17.0 Blaine % (Auto) 11.4 H Eos % (Auto) 0.9 Baso % (Auto) 0.5 Neut # (Auto) 6.7 Lymph # (Auto) 1.6 Blaine # (Auto) 1.1 H Eos # (Auto) 0.1 Baso # (Auto) 0.1 Sodium 132 L Potassium 3.6 Chloride 100 Carbon Dioxide 25 Anion Gap 10.6 BUN 14 Creatinine 1.23 Estimated Creat Clear 83 Estimated GFR 57 L Est GFR ( Amer) 69 Glucose 99 Calcium 8.6 Total Bilirubin 0.5 AST 10 L ALT 13 Alkaline Phosphatase 66 Total Protein 8.7 H Albumin 1.9 L Globulin 6.8 H Albumin/Globulin Ratio 0.3 L DS: Diagnosis - Discharge Diagnosis (1) Altered mental status Status: Chronic Problem details: Improving from baseline but has underlying dementia. (2) Bone mass Status: Acute (3) Diverticulitis large intestine Status: Acute (4) half-way current use of anticoagulant Status: Chronic (5) Abnormal chest x-ray Status: Acute (6) Diverticulitis Status: Acute Discharge Plan - Patient Discharge Instructions ACTIVITY: Continue current activity DIET: continue same diet Patient Instructions: Back Pain (Alternative Therapy), DI for Diverticulitis, DI for Altered Mental Status - Follow up Plan Follow up with: Barry Sinclair MD [Staff Physician] - 07/05/18 Unknown provider or service follow up:: 06/23/18 08:49 [facility] home health evaluation for PT/OT/home safety evaluation Patient is unable to leave home except for extreme difficulty because of mental status changes, pain/back pain/immobility issues. Disposition: Home Health Service Home Medications: Home Medications Medication Instructions Recorded Confirmed Type aspirin 81 mg tablet,delayed 81 mg PO DAILY tab 08/27/17 06/21/18 History release montelukast 10 mg tablet 10 mg PO HS 08/27/17 06/21/18 History rivaroxaban 20 mg tablet 20 mg PO DAILY tab 08/27/17 06/21/18 History atorvastatin 20 mg tablet 20 mg PO HS tab 11/25/17 06/21/18 History bisoprolol fumarate 5 mg tablet 5 mg PO DAILY tab 11/25/17 06/21/18 History fluticasone 50 mcg/actuation nasal 1 spray INTRANASAL DAILY PRN g 11/25/17 06/21/18 History spray,suspension furosemide 40 mg tablet 40 mg PO BID 30 Days #30 tab 03/24/18 06/21/18 History spironolactone 50 mg tablet 50 mg PO BID 30 Days #30 tab 03/24/18 06/21/18 History Albuterol Sulfate [Albuterol 2.5 mg INHALATION QID 05/13/18 06/21/18 History 0.083% 2.5mg/3mL neb] Allopurinol [Allopurinol 300mg 300 mg PO DAILY 06/21/18 06/21/18 History tablet] Hydrocodone/Acetaminophen 1 each PO Q8HP PRN 06/21/18 06/21/18 History [Hydrocodon-Acetaminoph 7.5-325] risperiDONE [Risperidone] 0.5 mg PO HS 06/21/18 06/21/18 History Gabapentin [Gabapentin 100mg Cap] 100 mg PO TID #90 cap 06/23/18 Rx levoFLOXacin [Levaquin 500mg 500 mg PO DAILY #7 tab 06/23/18 Rx tab] metroNIDAZOLE [Metronidazole 250mg 250 mg PO TID #21 tab 06/23/18 Rx Tablet] Prescriptions/Medication Reconciliation: New Gabapentin [Gabapentin 100mg Cap] 100 mg PO TID #90 cap metroNIDAZOLE [Metronidazole 250mg Tablet] 250 mg PO TID #21 tab levoFLOXacin [Levaquin 500mg tab] 500 mg PO DAILY #7 tab Continue aspirin 81 mg tablet,delayed release 81 mg PO DAILY tab rivaroxaban 20 mg tablet 20 mg PO DAILY tab bisoprolol fumarate 5 mg tablet 5 mg PO DAILY tab spironolactone 50 mg tablet 50 mg PO BID 30 Days #30 tab montelukast 10 mg tablet 10 mg PO HS fluticasone 50 mcg/actuation nasal spray,suspension 1 spray INTRANASAL DAILY PRN g PRN Reason: allergies atorvastatin 20 mg tablet 20 mg PO HS tab Allopurinol [Allopurinol 300mg tablet] 300 mg PO DAILY Albuterol Sulfate [Albuterol 0.083% 2.5mg/3mL neb] 2.5 mg INHALATION QID Discontinued furosemide 40 mg tablet 40 mg PO BID 30 Days #30 tab risperiDONE [Risperidone] 0.5 mg PO HS Hydrocodone/Acetaminophen [Hydrocodon-Acetaminoph 7.5-325] 1 each PO Q8HP PRN PRN Reason: breakthrough pain
== END 2018-06-23 10:40 | disposition home health service (06) | DRG 392 ==
LOC: ICU 23:24 → ER 23:24 → ICU 06-21 02:47 → 2ND 06-21 21:15
PROVIDERS: ADMIT Internal Medicine Adolescent Medicine; ATTEND Internal Medicine Adolescent Medicine
CPT/HCPCS: J1956

== ENCOUNTER → 2018-06-28 12:02 | Outpatient (POV) | payer MEDICARE, BC, SELFPAY ==
[2018-06-28 12:13] VITALS: BP 170/99; PULSE 58; RESP 20; BMI 32.1
--- NOTE | 2018-06-28 12:42 | HMH.PAINSOAP ---
[facility] Pain Management SOAP Note Subjective:: Patient is a pleasant 73-year-old white male who presents today for follow-up after inpatient stay. Patient was admitted secondary to confusion. This is since resolved. He is at his baseline in regards to this. Patient was put on gabapentin 100 mg 1 p.o. 3 times daily. Patient states that his pain has gone down to a 4 out of 10 since this. He denies any known side effects. Patient still having difficulty sleeping most of his pain is in his abdominal area. He states that it is burning in nature at times. ROS General: no recent weight change, no fever, no sleep disturbances Respiratory: no cough, no shortness of air, no recurring pulmonary infections Cardiovascular/Peripheral Vascular: No chest pain, No palpitations, no edema, no shortness of breath. Gastrointestinal: no incontinence, normal bowel movements reported Genitourinary: no incontinence Musculoskeletal: Abdominal pain Psychiatric: normal mood/ affect Neurological: Weakness in bilateral lower extremities, [denies balance issues] Objective:: Physical Exam General: Alert and oriented x3, no acute distress, pleasant and cooperative, [on room air] Lungs: Resps E/U, Symmetrical chest expansion, Eyes: PERRL Musculoskeletal: Flexion and extension of lumbar spine somewhat guarded secondary to pain, deep tendon reflexes normal, strength in upper and lower extremities [5/5], [abnormal gait noted] abdominal pain noted with palpation Neurological: speech clear, cartridge feeder equal, no gross sensory deficits Assessment:: Abdominal pain, degenerative disc disease, history of compression fracture Plan:: We will increase his gabapentin to 100 mg twice daily and 300 mg nightly. I will follow-up with him in 1 month and reassess his symptoms. Patient has been instructed to call the office if he has any issues prior to his next appointment. Dr. Queen has reviewed this note and agrees with this plan of care. This note was dictated using voice recognition software and may contain errors or omissions
== END ==
PROVIDERS: PCP Internal Medicine Adolescent Medicine; Visit Provider Clinical Nurse Specialist Family Health
DX: R10.9 Unspecified abdominal pain (principal); S22.050D Wedge compression fracture of T5-T6 vertebra, subsequent encounter for fracture with routine healing
CPT/HCPCS: 99213

== ENCOUNTER → 2018-07-01 15:09 | Outpatient (CLI) | payer MEDICARE, BC, SELFPAY ==
--- NOTE | 2018-07-01 15:15 | MR_ITS ---
MR thoracic spine wo/w con CLINICAL INDICATION: Tumor on thoracic spine, mid and low back pain, evaluate for cord compression ITS.REASON: CORD COMPRESSION ORDERING PHYSICIAN: Roxane Gill MD PATIENT AGE: 73 years Comparison: 05/07/2018, 06/22/2018 Routine multiplanar multiecho. Post enhanced images are obtained. 23 mL ProHance given IV FINDINGS: The exam is somewhat limited technically secondary to motion artifact. There is severe wedge compression changes once again noted involving T4 and T5. The patient has had an interval kyphoplasty compared to the MRI of 05/07/2018. Those changes were present on a previous CT scan however 06/22/2018 with kyphosis at the T5 level. There is some extrusion of methylmethacrylate which is better demonstrated on the CT scan into the epidural space anteriorly on both sides and on the right. The wedge compression changes at T4 and T5 have progressed compared to 05/07/2018 but not significantly changed from 06/22/2018. Artifact is present from the bone cement from the kyphoplasty. There is mild wedging at T3 with some increased T2 signal along the inferior margin. This was present on 06/22/2018 but has developed since 05/07/2018 Severe wedge compression changes are present at T4 and T5. Artifact is present from the bone cement along the anterior and right lateral epidural space. There is narrowing of the canal from the bone cement with right lateral recess narrowing and mild impingement upon the anterior right aspect of the cord. Probably not significant changed since 06/22/2018. Severe wedging is also present at T5 with post kyphoplasty changes and extruded bone cement anteriorly and on the right causing mild deformity of the anterior right aspect of the cord. There is canal stenosis at T4 and T5. Left paraspinal mass measuring 3.5 x 3.2 cm and showing moderate homogeneous contrast enhancement is noted extending into the foraminal space with some mild widening of the foramen. The mass arises from the medial aspect of the left rib. There is a new area of acute compression change involving the inferior endplate of T7 hypointense on T1 and showing increased T2 signal with minimal retropulsion of the posterior inferior aspect of T7 x 3 mm without cord impingement. IMPRESSION: 1. Severe wedge compression changes at T4 and T5. Status post kyphoplasty at these levels with extrusion of the bone cement anteriorly and on the right with canal stenosis and mild flattening of the nature right aspect of the cord at these levels which appears to be from the bone cement as well as from the mild retropulsion of the posterior superior aspect of T4 and T5 2. No change in the left paraspinal mass at 3.5 x 3.2 cm at T4. 3. New wedge compression changes involving the T7 vertebral body with minimal retropulsion of the inferior aspect x 3 mm without compression. 4. Mild compression changes are also present at T3. There is kyphosis at the T5-T6 junction. Significant findings called to Dr. Gill on 07/01/2018 5:42 PM.
--- NOTE | 2018-07-01 17:12 | XR_ITS ---
EXAM: XR thoracic spine 2V HISTORY: Right hemiplegia, compression fracture Comparison: 06/22/2018 FINDINGS: Study is somewhat limited technically. There is severe wedge compression changes of the T4 and T5. There has been kyphoplasty at the T4 and T5 level. There is some extrusion of methylmethacrylate both anteriorly and posteriorly and along the needle tracks of the interpedicular region. There is mild wedge compression changes at T7 which have developed in the interval. Mild upper thoracic curvature convex right. The left paraspinal soft tissue mass at T4 region is somewhat obscured by the overlying aortic knob. IMPRESSION: 1. Status post kyphoplasty at T5 and T4 with severe wedge compression changes of these vertebral bodies. 2. Mild wedge compression changes of T7
== END ==
PROVIDERS: PCP Internal Medicine Adolescent Medicine; Visit Provider Internal Medicine Medical Oncology
DX: M54.6 Pain in thoracic spine (principal); M54.5 Low back pain
CPT/HCPCS: 72070; 72157; A9576

== ENCOUNTER 2018-07-02 08:36 | Outpatient (CLI) | payer MEDICARE, BC, SELFPAY ==
[2018-07-02 10:56] VITALS: BMI 33.0
[2018-07-02 11:15] LABS: Basophils % 0.1 % (0.1-2.0); Eosinophils # 0.1 K/mm3 (0.0-0.4); Eosinophils % 0.3 % (0.1-12.0); Hematocrit 46.9 % (42.0-52.0); Hemoglobin 15.4 g/dL (14.1-18.0); Lymphocytes # 0.8 K/mm3 (0.7-4.5); Lymphocytes % 4.5 % (10-50); Mean Corpuscular HGB Conc 32.7 g/dL (31.8-35.4); Mean Corpuscular Hemoglobin 32.2 pg (27.0-31.2); Mean Corpuscular Volume 98.5 fl (80-94); Monocytes % 11.9 % (1.7-9.3); Neutrophils # 13.9 K/mm3 (1.8-7.8); Neutrophils % 83.2 % (37.0-80.0); Platelet Count 361 K/mm3 (142-424); Red Blood Count 4.76 M/mm3 (4.60-6.20); Red Cell Distribution Width 14.7 % (11.5-17.5); White Blood Count 16.7 K/mm3 (4.8-10.8)
[2018-07-02 11:16] LABS: MANUAL DIFFERENTIAL MANUAL DIFFERENTIAL (MANUAL DIFF)
[2018-07-02 11:26] LABS: Lymphocytes % 6 % (10-50); Monocytes % 6 % (2-9); Neutrophils % 88 % (42-76); Platelet Estimate Normal; RBC Morphology Normal; Total Cells Counted 100
[2018-07-02 12:00] VITALS: BP 127/73; PULSE 93; RESP 18; O2SAT 93
== END 2018-07-02 12:20 | disposition home or self-care (01) ==
PROVIDERS: Visit Provider Internal Medicine Medical Oncology
DX: C90.00 Multiple myeloma not having achieved remission (principal)
CPT/HCPCS: 36415; 85007; 85025; 96401; J9041

== ENCOUNTER 2018-07-08 12:00 | Outpatient (CLI) | payer MEDICARE, BC, SELFPAY ==
[2018-07-08 12:16] LABS: Basophils % 0.1 % (0.1-2.0); Eosinophils % 0.2 % (0.1-12.0); Hematocrit 45.9 % (42.0-52.0); Hemoglobin 14.8 g/dL (14.1-18.0); Lymphocytes # 0.7 K/mm3 (0.7-4.5); Lymphocytes % 3.7 % (10-50); Mean Corpuscular HGB Conc 32.2 g/dL (31.8-35.4); Mean Corpuscular Hemoglobin 32.4 pg (27.0-31.2); Mean Corpuscular Volume 100.9 fl (80-94); Monocytes # 1.3 K/mm3 (0.1-1.0); Neutrophils # 16.1 K/mm3 (1.8-7.8); Neutrophils % 89.1 % (37.0-80.0); Platelet Count 264 K/mm3 (142-424); Red Blood Count 4.55 M/mm3 (4.60-6.20); White Blood Count 18.1 K/mm3 (4.8-10.8)
[2018-07-08 12:18] LABS: MANUAL DIFFERENTIAL MANUAL DIFFERENTIAL (MANUAL DIFF)
[2018-07-08 12:35] LABS: Lymphocytes % 2 % (10-50); Monocytes % 6 % (2-9); Neutrophils % 87 % (42-76); Total Cells Counted 100
[2018-07-08 12:36] LABS: Macrocytosis 1+; Platelet Estimate Normal
[2018-07-08 13:45] VITALS: BP 127/74; PULSE 65; RESP 16; TEMP 35.6; O2SAT 96
== END 2018-07-08 14:00 | disposition home or self-care (01) ==
LOC: INF 12:02
PROVIDERS: Visit Provider Internal Medicine Medical Oncology
DX: C90.00 Multiple myeloma not having achieved remission (principal)
CPT/HCPCS: 36415; 85007; 85025; 96401; J9041

== ENCOUNTER 2018-07-15 13:50 | Outpatient (CLI) | payer MEDICARE, BC, SELFPAY ==
[2018-07-15 13:52] VITALS: BMI 31.4
[2018-07-15 14:13] LABS: Basophils % 0.1 % (0.1-2.0); Eosinophils # 0.1 K/mm3 (0.0-0.4); Eosinophils % 0.8 % (0.1-12.0); Hematocrit 44.4 % (42.0-52.0); Hemoglobin 14.6 g/dL (14.1-18.0); Lymphocytes % 8.5 % (10-50); Mean Corpuscular HGB Conc 32.8 g/dL (31.8-35.4); Mean Corpuscular Hemoglobin 32.4 pg (27.0-31.2); Mean Corpuscular Volume 98.7 fl (80-94); Monocytes # 0.5 K/mm3 (0.1-1.0); Monocytes % 3.9 % (1.7-9.3); Neutrophils % 86.6 % (37.0-80.0); Platelet Count 161 K/mm3 (142-424); Red Cell Distribution Width 14.7 % (11.5-17.5); White Blood Count 11.5 K/mm3 (4.8-10.8)
[2018-07-15 14:17] LABS: MANUAL DIFFERENTIAL MANUAL DIFFERENTIAL (MANUAL DIFF)
[2018-07-15 14:33] LABS: Eosinophils % 1 % (0-3); Lymphocytes % 6 % (10-50); Monocytes % 2 % (2-9); Neutrophils % 91 % (42-76); Platelet Estimate Normal; RBC Morphology Normal; Total Cells Counted 100
[2018-07-15 14:40] VITALS: BP 122/61; PULSE 69; RESP 18; O2SAT 93
== END 2018-07-15 14:55 | disposition home or self-care (01) ==
LOC: INF 13:50
PROVIDERS: Visit Provider Internal Medicine Medical Oncology
DX: C90.00 Multiple myeloma not having achieved remission (principal)
CPT/HCPCS: 36415; 85007; 85025; 96401; J9041

== ENCOUNTER → 2018-07-21 08:20 | Outpatient (CLI) | payer MEDICARE, BC, SELFPAY ==
--- NOTE | 2018-07-21 08:23 | MR_ITS ---
MR lumbar spine wo/w con, MR 3-d myelogram/MRCP HISTORY: Right leg weakness, multiple myeloma ITS.REASON: RIGHT LEG WEAKNESS ORDERING PHYSICIAN: Roxane Gill MD PATIENT AGE: 73 years Comparison: 05/07/2018 TECHNIQUE: Standard multiplanar multiecho sequences are performed without and with contrast. 21 mL of ProHance given IV. 3-D MIP and myelographic images are also rendered and reviewed FINDINGS: There is normal alignment. The spinal cord ends at the L1-L2 level. T12-L1: Mild degenerative disc disease. L1-L2: Unremarkable. L2-L3: Unremarkable. L3-L4: Degenerative disc disease with bulging disc slightly eccentric toward the left along with facet and ligamentum flavum hypertrophy with moderate bilateral lateral recess and foraminal narrowing. There is transverse narrowing of the canal at approximately 11 to 12 mm. There are type II endplate changes and there is moderate bilateral foraminal narrowing slightly greater on the left. There is a small broad-based central disc protrusion slightly eccentric toward the left with moderate left lateral recess narrowing. L4-L5: Concentric bulging disc with a small broad-based central disc protrusion along with moderate facet and ligamentum flavum hypertrophy with moderate bilateral foraminal and lateral recess narrowing. The disc protrusion is slightly eccentric toward the right and is abutting the anteromedial aspect of the right L5 nerve root not significant changed. There is transverse narrowing of the canal secondary to the facet ligamentum hypertrophy of approximately 12 mm. L5-S1: Moderate to severe Degenerative disc disease with concentric bulging disc along with a small broad-based central disc protrusion which is slightly eccentric toward the left. There is moderate to severe left-sided foraminal narrowing and moderate right-sided foraminal narrowing as well as bilateral lateral recess narrowing. There is mild retrolisthesis of L5 on S1 3 mm with small posterior endplate osteophytes. No destructive lesions are identified. No abnormal areas of enhancement or bone marrow edema. There has been overall no significant change from 05/07/2018 There are small bilateral renal cysts. IMPRESSION: 1. Mild multilevel lumbar spondylosis as detailed above. Please see above for detailed description at each level 2. L3-L4: Degenerative disc disease with bulging disc slightly eccentric toward the left along with facet and ligamentum flavum hypertrophy with moderate bilateral lateral recess and foraminal narrowing. There is transverse narrowing of the canal at approximately 11 to 12 mm. There are type II endplate changes and there is moderate bilateral foraminal narrowing slightly greater on the left. There is a small broad-based central disc protrusion slightly eccentric toward the left with moderate left lateral recess narrowing. 3. L4-L5: Concentric bulging disc with a small broad-based central disc protrusion along with moderate facet and ligamentum flavum hypertrophy with moderate bilateral foraminal and lateral recess narrowing. There is transverse narrowing of the canal secondary to the facet ligamentum hypertrophy of approximately 12 mm. The disc protrusion is slightly eccentric toward the right abutting the anteromedial aspect of the right S1 nerve root 4. L5-S1: Moderate to severe Degenerative disc disease with concentric bulging disc along with a small broad-based central disc protrusion which is slightly eccentric toward the left. There is moderate to severe left-sided foraminal narrowing and moderate right-sided foraminal narrowing as well as bilateral lateral recess narrowing. There is mild retrolisthesis of L5 on S1 3 mm with small posterior endplate osteophytes. 5. No evidence of metastatic disease. No evidence of multiple myeloma of the lumbar spine.
[2018-07-21 09:07] LABS: Blood Urea Nitrogen 18 mg/dL (7-18); Estimated Glomerular Filt Rate 54 ml/min (>60); GFR (African American) 65 ML/MIN (>60)
== END ==
PROVIDERS: PCP Internal Medicine Medical Oncology; Visit Provider Internal Medicine Medical Oncology
DX: R53.1 Weakness (principal)
CPT/HCPCS: 36415; 72158; 76376; 82565; 84520; A9576

== ENCOUNTER → 2018-07-27 11:09 | Outpatient (POV) | payer MEDICARE, BC, SELFPAY ==
--- NOTE | 2018-07-27 12:41 | P.CONS_ITS ---
[facility] Pain Management SOAP Note Subjective:: Patient is a pleasant 73-year-old white male who presents today for follow-up. Patient is doing extremely well is rating his pain a 0 out of 10. Patient is currently on gabapentin he takes 200 mg in the morning 100 mg in the afternoon and 300 mg at bedtime he is doing extremely well with this. Patient denies side effects. ROS General: no recent weight change, no fever, no sleep disturbances Respiratory: no cough, no shortness of air, no recurring pulmonary infections Cardiovascular/Peripheral Vascular: No chest pain, No palpitations, no edema, no shortness of breath. Gastrointestinal: no incontinence, normal bowel movements reported Genitourinary: no incontinence Musculoskeletal: Back pain and abdominal pain at times Psychiatric: normal mood/ affect Neurological: [denies weakness in extremities], [denies balance issues] Objective:: Physical Exam General: Alert and oriented x3, no acute distress, pleasant and cooperative, [on room air] Lungs: Resps E/U, Symmetrical chest expansion, Eyes: PERRL Musculoskeletal: Flexion and extension of lumbar spine somewhat guarded secondary to pain, deep tendon reflexes normal, strength in upper and lower extremities [4/5], [abnormal gait noted] Neurological: speech clear, 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 He is going to continue with Dr. Ching in regards to his gabapentin I stated that that was all right with us. If Dr. Ching does not want to write it I be happy to continue his gabapentin. Dr. Queen has reviewed this note and agrees with this plan of care. This note was dictated using voice recognition software and may contain errors or omissions
[2018-07-27 12:43] LABS: Basophils % 0.2 % (0.1-2.0); Eosinophils # 0.1 K/mm3 (0.0-0.4); Eosinophils % 0.6 % (0.1-12.0); Hematocrit 43.7 % (42.0-52.0); Hemoglobin 14.2 g/dL (14.1-18.0); Lymphocytes # 1.5 K/mm3 (0.7-4.5); Lymphocytes % 13.3 % (10-50); Mean Corpuscular HGB Conc 32.4 g/dL (31.8-35.4); Mean Corpuscular Hemoglobin 32.1 pg (27.0-31.2); Mean Corpuscular Volume 99.1 fl (80-94); Mean Platelet Volume 7.1 fl (7.4-10.4); Monocytes # 0.9 K/mm3 (0.1-1.0); Monocytes % 8.2 % (1.7-9.3); Neutrophils # 8.8 K/mm3 (1.8-7.8); Neutrophils % 77.6 % (37.0-80.0); Platelet Count 383 K/mm3 (142-424); Red Blood Count 4.41 M/mm3 (4.60-6.20); Red Cell Distribution Width 14.6 % (11.5-17.5); White Blood Count 11.3 K/mm3 (4.8-10.8)
[2018-07-27 13:45] VITALS: BP 159/68; PULSE 105; RESP 18; O2SAT 98; BMI 23.7
[2018-07-27 14:26] LABS: Alanine Aminotransferase 30 U/L (12-78); Albumin Level 2.4 gm/dL (3.4-5.0); Albumin/Globulin Ratio 0.7 (1.1-1.8); Alkaline Phosphatase 98 U/L (46-116); Anion Gap 13.9 mEq/L (5-15); Aspartate Amino Transferase 15 U/L (15-37); Bilirubin,Total 0.5 mg/dL (0.2-1.0); Blood Urea Nitrogen 17 mg/dL (7-18); Calcium 8.9 mg/dL (8.5-10.1); Carbon Dioxide 26 mmol/L (21.0-32.0); Chloride 105 mmol/L (98-107); Creatinine Clearance Estimated 74 mL/min (50-200); Creatinine,Serum 1.02 mg/dL (0.70-1.30); Estimated Glomerular Filt Rate 71 ml/min (>60); GFR (African American) 86 ML/MIN (>60); Globulin 3.6 gm/dl (1.3-3.2); Glucose 92 mg/dL (74-106); Potassium 4.9 mmoL/L (3.5-5.1); Sodium 140 mmol/L (136-145)
== END ==
PROVIDERS: Internal Medicine Medical Oncology; PCP Internal Medicine Adolescent Medicine; Visit Provider Clinical Nurse Specialist Family Health
DX: C90.00 Multiple myeloma not having achieved remission (principal); M51.36 Other intervertebral disc degeneration, lumbar region; R53.1 Weakness; Z87.81 Personal history of (healed) traumatic fracture; R10.9 Unspecified abdominal pain
CPT/HCPCS: 36415; 80053; 85025; 99213

== ENCOUNTER 2018-07-29 14:45 | Outpatient (CLI) | payer MEDICARE, BC, SELFPAY ==
[2018-07-29 15:40] VITALS: BP 96/68; PULSE 79; RESP 18; TEMP 37; O2SAT 95
== END 2018-07-29 15:55 | disposition home or self-care (01) ==
PROVIDERS: Visit Provider Internal Medicine Medical Oncology
DX: Z51.11 Encounter for antineoplastic chemotherapy (principal); C90.00 Multiple myeloma not having achieved remission
CPT/HCPCS: 96401; J9041

== ENCOUNTER 2018-08-05 12:57 | Outpatient (CLI) | payer MEDICARE, BC, SELFPAY ==
[2018-08-05 12:58] VITALS: BMI 31.3
[2018-08-05 13:14] LABS: Basophils # 0.1 K/mm3 (0-0.2); Eosinophils # 0.2 K/mm3 (0.0-0.4); Eosinophils % 1.1 % (0.1-12.0); Hemoglobin 13.9 g/dL (14.1-18.0); Lymphocytes # 2.2 K/mm3 (0.7-4.5); Lymphocytes % 16.7 % (10-50); Mean Corpuscular HGB Conc 31.7 g/dL (31.8-35.4); Mean Corpuscular Hemoglobin 31.5 pg (27.0-31.2); Mean Corpuscular Volume 99.6 fl (80-94); Mean Platelet Volume 7.6 fl (7.4-10.4); Monocytes # 0.7 K/mm3 (0.1-1.0); Monocytes % 5.4 % (1.7-9.3); Neutrophils # 10.2 K/mm3 (1.8-7.8); Neutrophils % 75.8 % (37.0-80.0); Platelet Count 334 K/mm3 (142-424); Red Blood Count 4.42 M/mm3 (4.60-6.20); Red Cell Distribution Width 15.5 % (11.5-17.5); White Blood Count 13.4 K/mm3 (4.8-10.8)
[2018-08-05 14:00] VITALS: BP 134/75; PULSE 84; RESP 18; O2SAT 96
== END 2018-08-05 14:00 | disposition home or self-care (01) ==
LOC: INF 12:57
PROVIDERS: Visit Provider Internal Medicine Medical Oncology
DX: Z51.11 Encounter for antineoplastic chemotherapy (principal); C90.00 Multiple myeloma not having achieved remission
CPT/HCPCS: 36415; 85025; 96401; J9041

== ENCOUNTER 2018-08-12 15:55 | Outpatient (CLI) | payer MEDICARE, BC, SELFPAY ==
[2018-08-12 16:07] VITALS: BMI 33.0
[2018-08-12 16:21] LABS: Basophils # 0.2 K/mm3 (0-0.2); Basophils % 1.1 % (0.1-2.0); Eosinophils # 0.6 K/mm3 (0.0-0.4); Eosinophils % 3.8 % (0.1-12.0); Hematocrit 44.9 % (42.0-52.0); Hemoglobin 14.4 g/dL (14.1-18.0); Lymphocytes # 2.3 K/mm3 (0.7-4.5); Lymphocytes % 14.6 % (10-50); Mean Corpuscular Hemoglobin 31.7 pg (27.0-31.2); Mean Corpuscular Volume 98.8 fl (80-94); Mean Platelet Volume 7.8 fl (7.4-10.4); Monocytes # 0.7 K/mm3 (0.1-1.0); Monocytes % 4.5 % (1.7-9.3); Neutrophils # 12.1 K/mm3 (1.8-7.8); Platelet Count 346 K/mm3 (142-424); Red Blood Count 4.55 M/mm3 (4.60-6.20); Red Cell Distribution Width 15.5 % (11.5-17.5)
[2018-08-12 16:24] LABS: MANUAL DIFFERENTIAL MANUAL DIFFERENTIAL (MANUAL DIFF)
[2018-08-12 16:34] LABS: Alanine Aminotransferase 16 U/L (12-78); Albumin Level 2.6 gm/dL (3.4-5.0); Albumin/Globulin Ratio 0.6 (1.1-1.8); Alkaline Phosphatase 110 U/L (46-116); Anion Gap 13.3 mEq/L (5-15); Aspartate Amino Transferase 10 U/L (15-37); Bilirubin,Total 0.4 mg/dL (0.2-1.0); Blood Urea Nitrogen 22 mg/dL (7-18); Calcium 8.9 mg/dL (8.5-10.1); Carbon Dioxide 28 mmol/L (21.0-32.0); Chloride 106 mmol/L (98-107); Creatinine Clearance Estimated 96 mL/min (50-200); Creatinine,Serum 1.07 mg/dL (0.70-1.30); Estimated Glomerular Filt Rate 67 ml/min (>60); GFR (African American) 82 ML/MIN (>60); Globulin 4.1 gm/dl (1.3-3.2); Glucose 95 mg/dL (74-106); Potassium 4.3 mmoL/L (3.5-5.1); Sodium 143 mmol/L (136-145); Total Protein,Serum 6.7 gm/dL (6.4-8.2)
[2018-08-12 16:35] VITALS: BP 144/84; PULSE 86; RESP 18; TEMP 36.1; O2SAT 97
[2018-08-12 16:37] LABS: Eosinophils % 3 % (0-3); Lymphocytes % 15 % (10-50); Monocytes % 3 % (2-9); Neutrophils % 79 % (42-76); Total Cells Counted 100
[2018-08-12 16:38] LABS: Hypochromasia 1+; Platelet Estimate Normal
[2018-08-14 20:11] LABS: Free Kappa Lt Chains 32.6 mg/L (3.3-19.4); Free Lambda Lt Chains 9.9 mg/L (5.7-26.3)
[2018-08-16 13:12] LABS: Alpha-1-Globulin 0.3 g/dL (0.0-0.4); Alpha-2-Globulin 0.9 g/dL (0.4-1.0); Gamma Globulin 1.1 g/dL (0.4-1.8)
[2018-08-16 14:11] LABS: Immunoglobulin A, Qn 66 mg/dL (61-437); Immunoglobulin G, Qn 972 mg/dL (700-1600)
[2018-08-17 06:15] LABS: Immunoglobulin M, Qn 30 mg/dL (15-143)
== END 2018-08-12 16:50 | disposition home or self-care (01) ==
PROVIDERS: Visit Provider Internal Medicine Medical Oncology
DX: Z51.11 Encounter for antineoplastic chemotherapy (principal); C90.00 Multiple myeloma not having achieved remission
CPT/HCPCS: 80053; 82784; 83883; 84155; 84165; 85007; 85025; 86334; 96401; J9041

== ENCOUNTER 2018-08-26 13:35 | Outpatient (CLI) | payer MEDICARE, BC, SELFPAY ==
[2018-08-26 13:43] VITALS: BMI 32.8
[2018-08-26 14:06] LABS: Basophils # 0.1 K/mm3 (0-0.2); Basophils % 0.8 % (0.1-2.0); Eosinophils # 0.5 K/mm3 (0.0-0.4); Eosinophils % 4.9 % (0.1-12.0); Hematocrit 42.5 % (42.0-52.0); Lymphocytes % 19.6 % (10-50); Mean Corpuscular Hemoglobin 32.2 pg (27.0-31.2); Mean Corpuscular Volume 97.6 fl (80-94); Mean Platelet Volume 7.2 fl (7.4-10.4); Monocytes # 0.7 K/mm3 (0.1-1.0); Monocytes % 6.7 % (1.7-9.3); Neutrophils # 7.1 K/mm3 (1.8-7.8); Neutrophils % 67.9 % (37.0-80.0); Platelet Count 322 K/mm3 (142-424); Red Blood Count 4.36 M/mm3 (4.60-6.20); Red Cell Distribution Width 15.1 % (11.5-17.5); White Blood Count 10.4 K/mm3 (4.8-10.8)
[2018-08-26 14:40] VITALS: BP 137/78; PULSE 87; RESP 18; TEMP 36.1; O2SAT 96
== END 2018-08-26 14:55 | disposition home or self-care (01) ==
LOC: INF 13:46
PROVIDERS: Visit Provider Internal Medicine Medical Oncology
DX: Z51.11 Encounter for antineoplastic chemotherapy (principal); C90.00 Multiple myeloma not having achieved remission
CPT/HCPCS: 36415; 85025; 96401; J9041

== ENCOUNTER 2018-09-02 13:03 | Outpatient (CLI) | payer MEDICARE, BC, SELFPAY ==
--- NOTE | 2018-09-02 13:15 | XR_ITS ---
XR hip LT 2-3V w/pelvis HISTORY: ITS.REASON: LT HIP PAIN, MULTIPLE MYELOMA ORDERING PHYSICIAN: Roxane Gill MD PATIENT AGE: 73 years COMPARISON: None FINDINGS: No fracture or dislocation is evident. No significant degenerative change. No lytic or blastic change. Unremarkable soft tissues. IMPRESSION: No acute finding
[2018-09-02 13:35] VITALS: BMI 32.8
[2018-09-02 14:14] VITALS: BP 125/84; PULSE 89; RESP 18; TEMP 36.2; O2SAT 98
== END 2018-09-02 14:30 | disposition home or self-care (01) ==
PROVIDERS: PCP Internal Medicine Adolescent Medicine; Visit Provider Internal Medicine Medical Oncology
DX: Z51.11 Encounter for antineoplastic chemotherapy (principal); C90.00 Multiple myeloma not having achieved remission; M25.552 Pain in left hip
CPT/HCPCS: 73502; 96401; J9041

== ENCOUNTER 2018-09-09 13:38 | Outpatient (CLI) | payer MEDICARE, BC, SELFPAY ==
[2018-09-09 14:40] VITALS: BP 130/76; PULSE 70; RESP 20; O2SAT 100
== END 2018-09-09 14:55 | disposition home or self-care (01) ==
LOC: INF 14:26
PROVIDERS: Visit Provider Internal Medicine Medical Oncology
DX: C90.00 Multiple myeloma not having achieved remission (principal)
CPT/HCPCS: 96401; J9041

== ENCOUNTER 2018-09-23 12:46 | Outpatient (CLI) | payer MEDICARE, BC, SELFPAY ==
[2018-09-23 12:46] VITALS: BMI 33.0
[2018-09-23 13:34] LABS: Alanine Aminotransferase 15 U/L (12-78); Albumin Level 2.8 gm/dL (3.4-5.0); Albumin/Globulin Ratio 0.7 (1.1-1.8); Alkaline Phosphatase 128 U/L (46-116); Anion Gap 10.3 mEq/L (5-15); Aspartate Amino Transferase 5 U/L (15-37); Bilirubin,Total 0.6 mg/dL (0.2-1.0); Blood Urea Nitrogen 14 mg/dL (7-18); Calcium 8.6 mg/dL (8.5-10.1); Carbon Dioxide 29 mmol/L (21.0-32.0); Chloride 108 mmol/L (98-107); Creatinine Clearance Estimated 87 mL/min (50-200); Creatinine,Serum 1.17 mg/dL (0.70-1.30); Estimated Glomerular Filt Rate 61 ml/min (>60); GFR (African American) 74 ML/MIN (>60); Globulin 3.8 gm/dl (1.3-3.2); Glucose 94 mg/dL (74-106); Potassium 4.3 mmoL/L (3.5-5.1); Sodium 143 mmol/L (136-145); Total Protein,Serum 6.6 gm/dL (6.4-8.2)
[2018-09-23 13:41] LABS: Basophils # 0.1 K/mm3 (0-0.2); Basophils % 0.8 % (0.1-2.0); Eosinophils # 0.4 K/mm3 (0.0-0.4); Eosinophils % 3.2 % (0.1-12.0); Hematocrit 42.1 % (42.0-52.0); Hemoglobin 13.8 g/dL (14.1-18.0); Lymphocytes # 1.8 K/mm3 (0.7-4.5); Lymphocytes % 15.9 % (10-50); Mean Corpuscular HGB Conc 32.7 g/dL (31.8-35.4); Mean Corpuscular Hemoglobin 31.4 pg (27.0-31.2); Mean Platelet Volume 7.2 fl (7.4-10.4); Monocytes # 0.6 K/mm3 (0.1-1.0); Monocytes % 5.6 % (1.7-9.3); Neutrophils # 8.3 K/mm3 (1.8-7.8); Neutrophils % 74.4 % (37.0-80.0); Platelet Count 332 K/mm3 (142-424); Red Blood Count 4.38 M/mm3 (4.60-6.20); Red Cell Distribution Width 14.3 % (11.5-17.5); White Blood Count 11.2 K/mm3 (4.8-10.8)
[2018-09-23 15:13] LABS: Microscopic, Urine URINE MICROSCOPIC (MICROSCOPIC)
[2018-09-23 15:21] LABS: Appearance,Urine CLEAR (Clear); Bilirubin,Urine Negative (Negative); Blood, Urine Negative (Negative); Color,Urine YELLOW (Yellow); Glucose,Urine (UA) Negative (Negative); Ketones,Urine Negative (Negative); Leukocyte Esterase,Urine Negative (Negative); Nitrate,Urine POSITIVE (Negative); PH,Urine 6.5 (5.0-8.5); Protein,Urine Negative (Negative)
[2018-09-23 15:33] LABS: Bacteria,Urine 1+ /lpf
[2018-09-23 16:02] VITALS: BP 147/90; PULSE 80; RESP 18; TEMP 36.6; O2SAT 95
== END 2018-09-23 16:04 | disposition home or self-care (01) ==
LOC: INF 12:46
PROVIDERS: Visit Provider Internal Medicine Medical Oncology
DX: C90.00 Multiple myeloma not having achieved remission (principal); R33.9 Retention of urine, unspecified
CPT/HCPCS: 36415; 80053; 81001; 85025; 87086; 87088; 87186; 96401; J9041

== ENCOUNTER 2018-09-30 12:40 | Outpatient (CLI) | payer MEDICARE, BC, SELFPAY ==
[2018-09-30 13:16] VITALS: BP 139/76; PULSE 79; RESP 18
== END 2018-09-30 13:18 | disposition home or self-care (01) ==
LOC: INF 12:54
PROVIDERS: Visit Provider Internal Medicine Medical Oncology
DX: C90.00 Multiple myeloma not having achieved remission (principal)
CPT/HCPCS: 96401; J9041

== ENCOUNTER 2018-10-07 13:15 | Outpatient (CLI) | payer MEDICARE, BC, SELFPAY ==
[2018-10-07 13:17] VITALS: BMI 33.0
[2018-10-07 13:40] LABS: Basophils # 0.1 K/mm3 (0-0.2); Basophils % 0.6 % (0.1-2.0); Eosinophils # 0.3 K/mm3 (0.0-0.4); Eosinophils % 3.1 % (0.1-12.0); Hematocrit 45.2 % (42.0-52.0); Hemoglobin 14.7 g/dL (14.1-18.0); Mean Corpuscular HGB Conc 32.6 g/dL (31.8-35.4); Mean Platelet Volume 8.4 fl (7.4-10.4); Monocytes # 0.7 K/mm3 (0.1-1.0); Monocytes % 5.9 % (1.7-9.3); Neutrophils % 72.4 % (37.0-80.0); Platelet Count 255 K/mm3 (142-424); Red Blood Count 4.75 M/mm3 (4.60-6.20); Red Cell Distribution Width 14.2 % (11.5-17.5); White Blood Count 11.1 K/mm3 (4.8-10.8)
[2018-10-07 13:49] LABS: Alanine Aminotransferase 15 U/L (12-78); Albumin/Globulin Ratio 0.9 (1.1-1.8); Alkaline Phosphatase 106 U/L (46-116); Anion Gap 9.2 mEq/L (5-15); Aspartate Amino Transferase 9 U/L (15-37); Bilirubin,Total 0.6 mg/dL (0.2-1.0); Blood Urea Nitrogen 21 mg/dL (7-18); Calcium 8.9 mg/dL (8.5-10.1); Carbon Dioxide 31 mmol/L (21.0-32.0); Chloride 107 mmol/L (98-107); Creatinine Clearance Estimated 91 mL/min (50-200); Creatinine,Serum 1.13 mg/dL (0.70-1.30); Estimated Glomerular Filt Rate 63 ml/min (>60); GFR (African American) 77 ML/MIN (>60); Globulin 3.4 gm/dl (1.3-3.2); Glucose 92 mg/dL (74-106); Potassium 4.2 mmoL/L (3.5-5.1); Sodium 143 mmol/L (136-145); Total Protein,Serum 6.4 gm/dL (6.4-8.2)
[2018-10-07 14:20] VITALS: BP 128/75; PULSE 72; RESP 18; O2SAT 95
== END 2018-10-07 14:35 | disposition home or self-care (01) ==
LOC: INF 13:15
PROVIDERS: Visit Provider Internal Medicine Medical Oncology
DX: C90.00 Multiple myeloma not having achieved remission (principal)
CPT/HCPCS: 80053; 85025; 96401; J9041

== ENCOUNTER → 2018-10-14 12:24 | Outpatient (CLI) | payer MEDICARE, BC, SELFPAY ==
[2018-10-14 12:51] LABS: Basophils # 0.1 K/mm3 (0-0.2); Basophils % 0.5 % (0.1-2.0); Eosinophils # 0.4 K/mm3 (0.0-0.4); Eosinophils % 3.2 % (0.1-12.0); Hematocrit 43.2 % (42.0-52.0); Hemoglobin 13.1 g/dL (14.1-18.0); Mean Corpuscular HGB Conc 30.2 g/dL (31.8-35.4); Mean Corpuscular Hemoglobin 28.5 pg (27.0-31.2); Mean Corpuscular Volume 94.5 fl (80-94); Mean Platelet Volume 8.3 fl (7.4-10.4); Monocytes # 0.7 K/mm3 (0.1-1.0); Monocytes % 6.6 % (1.7-9.3); Neutrophils # 8.1 K/mm3 (1.8-7.8); Neutrophils % 71.7 % (37.0-80.0); Platelet Count 230 K/mm3 (142-424); Red Blood Count 4.58 M/mm3 (4.60-6.20); Red Cell Distribution Width 14.2 % (11.5-17.5); White Blood Count 11.3 K/mm3 (4.8-10.8)
[2018-10-14 18:47] LABS: Alanine Aminotransferase 19 U/L (12-78); Albumin/Globulin Ratio 1.1 (1.1-1.8); Alkaline Phosphatase 110 U/L (46-116); Anion Gap 12.5 mEq/L (5-15); Aspartate Amino Transferase 12 U/L (15-37); Bilirubin,Total 0.5 mg/dL (0.2-1.0); Blood Urea Nitrogen 17 mg/dL (7-18); Calcium 8.8 mg/dL (8.5-10.1); Carbon Dioxide 27 mmol/L (21.0-32.0); Chloride 108 mmol/L (98-107); Creatinine,Serum 1.05 mg/dL (0.70-1.30); Estimated Glomerular Filt Rate 69 ml/min (>60); GFR (African American) 83 ML/MIN (>60); Globulin 2.7 gm/dl (1.3-3.2); Glucose 76 mg/dL (74-106); Potassium 4.5 mmoL/L (3.5-5.1); Sodium 143 mmol/L (136-145); Total Protein,Serum 5.7 gm/dL (6.4-8.2)
[2018-10-16 21:06] LABS: Free Kappa Lt Chains 23.6 mg/L (3.3-19.4); Free Lambda Lt Chains 8.2 mg/L (5.7-26.3)
[2018-10-18 11:14] LABS: Immunoglobulin G, Qn 765 mg/dL (700-1600)
[2018-10-18 13:22] LABS: Albumin 3.1 g/dL (2.9-4.4); Alpha-1-Globulin 0.2 g/dL (0.0-0.4); Alpha-2-Globulin 0.9 g/dL (0.4-1.0); Gamma Globulin 0.8 g/dL (0.4-1.8); Protein, Total 5.8 g/dL (6.0-8.5)
[2018-10-19 19:52] LABS: Immunoglobulin A, Qn 47 mg/dL (61-437); Immunoglobulin M, Qn 18 mg/dL (15-143)
== END ==
PROVIDERS: Visit Provider Internal Medicine Medical Oncology
DX: C90.00 Multiple myeloma not having achieved remission (principal)
CPT/HCPCS: 36415; 80053; 82784; 83883; 84155; 84165; 85025; 86334

== ENCOUNTER 2018-10-21 14:55 | Outpatient (CLI) | payer MEDICARE, BC, SELFPAY ==
[2018-10-21 15:09] VITALS: BP 118/70; PULSE 78; RESP 18; TEMP 36.4; O2SAT 97
== END 2018-10-21 15:22 | disposition home or self-care (01) ==
LOC: INF 15:10
PROVIDERS: Visit Provider Internal Medicine Medical Oncology
DX: C90.00 Multiple myeloma not having achieved remission (principal)
CPT/HCPCS: 96401; J9041

== ENCOUNTER 2018-10-27 12:57 | Outpatient (CLI) | payer MEDICARE, BC, SELFPAY ==
[2018-10-27 13:25] VITALS: BP 136/63; PULSE 81; RESP 18; TEMP 36.3
== END 2018-10-27 13:40 | disposition home or self-care (01) ==
LOC: INF 12:57
PROVIDERS: Visit Provider Internal Medicine Medical Oncology
DX: C90.00 Multiple myeloma not having achieved remission (principal)
CPT/HCPCS: 96401; J9041

== ENCOUNTER 2018-11-03 12:40 | Outpatient (CLI) | payer MEDICARE, BC, SELFPAY ==
[2018-11-03 13:41] VITALS: BP 107/67; PULSE 79; RESP 18; TEMP 36.6; O2SAT 98
== END 2018-11-03 13:43 | disposition home or self-care (01) ==
LOC: INF 12:50
PROVIDERS: Visit Provider Internal Medicine Medical Oncology
DX: C90.00 Multiple myeloma not having achieved remission (principal)
CPT/HCPCS: 96401; J9041

== ENCOUNTER 2018-11-19 14:10 | Outpatient (CLI) | payer MEDICARE, BC, SELFPAY ==
[2018-11-19 14:12] VITALS: BMI 33.6
[2018-11-19 14:43] LABS: Basophils # 0.1 K/mm3 (0-0.2); Basophils % 0.7 % (0.1-2.0); Eosinophils # 0.4 K/mm3 (0.0-0.4); Eosinophils % 3.9 % (0.1-12.0); Hematocrit 45.1 % (42.0-52.0); Hemoglobin 13.5 g/dL (14.1-18.0); Lymphocytes # 1.9 K/mm3 (0.7-4.5); Mean Corpuscular HGB Conc 29.8 g/dL (31.8-35.4); Mean Corpuscular Hemoglobin 28.4 pg (27.0-31.2); Mean Corpuscular Volume 95.2 fl (80-94); Mean Platelet Volume 7.3 fl (7.4-10.4); Monocytes # 0.8 K/mm3 (0.1-1.0); Monocytes % 7.7 % (1.7-9.3); Neutrophils # 7.4 K/mm3 (1.8-7.8); Neutrophils % 69.7 % (37.0-80.0); Platelet Count 312 K/mm3 (142-424); Red Blood Count 4.74 M/mm3 (4.60-6.20); Red Cell Distribution Width 14.3 % (11.5-17.5); White Blood Count 10.6 K/mm3 (4.8-10.8)
[2018-11-19 15:10] LABS: Alanine Aminotransferase 10 U/L (12-78); Albumin/Globulin Ratio 0.9 (1.1-1.8); Alkaline Phosphatase 137 U/L (46-116); Aspartate Amino Transferase 6 U/L (15-37); Bilirubin,Total 0.5 mg/dL (0.2-1.0); Blood Urea Nitrogen 20 mg/dL (7-18); Carbon Dioxide 30 mmol/L (21.0-32.0); Chloride 105 mmol/L (98-107); Creatinine Clearance Estimated 86 mL/min (50-200); Creatinine,Serum 1.21 mg/dL (0.70-1.30); Estimated Glomerular Filt Rate 58 ml/min (>60); GFR (African American) 71 ML/MIN (>60); Globulin 3.5 gm/dl (1.3-3.2); Glucose 92 mg/dL (74-106); Sodium 141 mmol/L (136-145); Total Protein,Serum 6.5 gm/dL (6.4-8.2)
[2018-11-19 15:15] VITALS: BP 128/73; PULSE 67; RESP 18; TEMP 36.4; O2SAT 95
[2018-11-22 12:09] LABS: Immunoglobulin G, Qn 802 mg/dL (700-1600)
[2018-11-22 13:31] LABS: Albumin 3.5 g/dL (2.9-4.4); Alpha-1-Globulin 0.3 g/dL (0.0-0.4); Alpha-2-Globulin 0.9 g/dL (0.4-1.0); Free Kappa Lt Chains 33.7 mg/L (3.3-19.4); Free Lambda Lt Chains 10.6 mg/L (5.7-26.3); Gamma Globulin 0.7 g/dL (0.4-1.8); Protein, Total 6.1 g/dL (6.0-8.5)
[2018-11-22 16:41] LABS: Immunoglobulin A, Qn 46 mg/dL (61-437); Immunoglobulin M, Qn 12 mg/dL (15-143)
== END 2018-11-19 15:27 | disposition home or self-care (01) ==
LOC: INF 14:10
PROVIDERS: Visit Provider Internal Medicine Medical Oncology
DX: Z51.11 Encounter for antineoplastic chemotherapy (principal); C90.00 Multiple myeloma not having achieved remission
CPT/HCPCS: 36415; 80053; 82784; 83883; 84155; 84165; 85025; 86334; 96401; J9041

== ENCOUNTER → 2018-11-26 12:50 | Outpatient (CLI) | payer MEDICARE, BC, SELFPAY ==
[2018-11-26 16:31] VITALS: BP 112/78; PULSE 68; RESP 20; TEMP 36.9; O2SAT 95
[2018-11-26 16:44] VITALS: BP 116/74; PULSE 68; RESP 20; TEMP 36.9; O2SAT 95
== END ==
PROVIDERS: Visit Provider Internal Medicine Medical Oncology
DX: C90.00 Multiple myeloma not having achieved remission (principal)
CPT/HCPCS: 96401; J9041

== ENCOUNTER 2018-12-02 12:40 | Outpatient (CLI) | payer MEDICARE, BC, SELFPAY ==
[2018-12-02 13:20] VITALS: BP 134/75; PULSE 76; RESP 18; TEMP 36.3; O2SAT 94
== END 2018-12-02 13:35 | disposition home or self-care (01) ==
PROVIDERS: Visit Provider Internal Medicine Medical Oncology
DX: C90.00 Multiple myeloma not having achieved remission (principal)
CPT/HCPCS: 96401; J9041

== ENCOUNTER 2018-12-16 13:25 | Outpatient (CLI) | payer MEDICARE, BC, SELFPAY ==
[2018-12-16 13:32] VITALS: BMI 36.2
[2018-12-16 13:59] LABS: Basophils # 0.1 K/mm3 (0-0.2); Basophils % 0.5 % (0.1-2.0); Eosinophils # 0.3 K/mm3 (0.0-0.4); Eosinophils % 2.6 % (0.1-12.0); Hematocrit 47.3 % (42.0-52.0); Hemoglobin 14.7 g/dL (14.1-18.0); Lymphocytes # 1.8 K/mm3 (0.7-4.5); Lymphocytes % 14.5 % (10-50); Mean Corpuscular Hemoglobin 30.1 pg (27.0-31.2); Mean Corpuscular Volume 97.1 fl (80-94); Mean Platelet Volume 7.6 fl (7.4-10.4); Monocytes % 8.3 % (1.7-9.3); Neutrophils % 74.2 % (37.0-80.0); Platelet Count 335 K/mm3 (142-424); Red Blood Count 4.88 M/mm3 (4.60-6.20); White Blood Count 12.2 K/mm3 (4.8-10.8)
[2018-12-16 14:11] LABS: Alanine Aminotransferase 13 U/L (12-78); Albumin Level 3.1 gm/dL (3.4-5.0); Albumin/Globulin Ratio 0.9 (1.1-1.8); Alkaline Phosphatase 113 U/L (46-116); Anion Gap 6.7 mEq/L (5-15); Aspartate Amino Transferase 7 U/L (15-37); Blood Urea Nitrogen 18 mg/dL (7-18); Calcium 9.3 mg/dL (8.5-10.1); Carbon Dioxide 35 mmol/L (21.0-32.0); Chloride 104 mmol/L (98-107); Creatinine Clearance Estimated 92 mL/min (50-200); Creatinine,Serum 1.19 mg/dL (0.70-1.30); Estimated Glomerular Filt Rate 60 ml/min (>60); GFR (African American) 72 ML/MIN (>60); Globulin 3.6 gm/dl (1.3-3.2); Glucose 85 mg/dL (74-106); Potassium 4.7 mmoL/L (3.5-5.1); Sodium 141 mmol/L (136-145); Total Protein,Serum 6.7 gm/dL (6.4-8.2)
[2018-12-16 15:00] VITALS: BP 132/83; PULSE 73; RESP 18; O2SAT 95
== END 2018-12-16 15:15 | disposition home or self-care (01) ==
LOC: INF 13:29
PROVIDERS: Visit Provider Internal Medicine Medical Oncology
DX: C90.00 Multiple myeloma not having achieved remission (principal)
CPT/HCPCS: 36415; 80053; 85025; 96401; J9041

== ENCOUNTER 2018-12-24 11:15 | Outpatient (POV) | payer MEDICARE, BC, SELFPAY ==
--- NOTE | 2018-12-24 12:55 | P.CONS_ITS ---
[facility] Pain Management SOAP Note Subjective:: This patient is a pleasant 73-year-old white male well-known to us in the pain clinic as we previously saw him for compression fracture. He had one fixed by Dr. Salazar. This was a vertebroplasty at T4 and T5. He now has multiple other compression fractures in particular T7, T12, L1 and L2. Given these additional compression fractures he is followed up with Dr. Barragan who said that he is not a candidate for any further kyphoplasty or vertebroplasty due to increased risk and extensiveness of the compression fractures. Given increasing back pain and diagnosis of multiple myeloma I believe that he would be a candidate for intrathecal pump therapy. He has hypersensitivity to oral narcotics so he most likely is a candidate for intrathecal pump therapy with bupivacaine. We will seek clearance from Dr. Borrero and Dr. Cruz. We will also have to have him off of his blood thinner for at least 5 days. Objective:: Alert and oriented x3 no acute distress. Patient is sitting in a wheelchair. There is tenderness or throughout the lumbar spine. Motor strength of the lower extremities is 5/5. There is no gross sensory deficit. Assessment:: Degenerative disc disease of lumbar spine with diagnosis of active multiple myeloma and multiple compression fractures with increasing low back pain. Plan:: We will seek clearance from Dr. Borrero and Dr. Cruz. We will have to have him off of his blood thinner for at least 5 days prior to permanent placement. Once we get clearance we will seek approval for permanent placement of intrathecal pump. This will be an intrathecal pain pump with bupivacaine 10 mg/mL to start at 1 mg/day. Catheter tip will be at L1. We will plan on permanent placement with Dr. leilani weber on January 13. We will get a CBC, PT PTT and basic 8 labs prior to this surgery. Pain Management Hx Components *Have you ever received a pneumonia vaccine?: No *Have you received a flu vaccine this season?: No - *Social History *Occupational Status:: retired, disabled *Travel in the last 8 weeks: Inside the [place]
[2018-12-24 13:12] VITALS: BP 108/67; PULSE 81; RESP 18; TEMP 36.1; O2SAT 92
== END 2018-12-24 13:20 | disposition home or self-care (01) ==
LOC: SC.PAIN 11:18 → INF 12:29
PROVIDERS: PCP Internal Medicine Adolescent Medicine; Visit Provider Clinical Nurse Specialist Family Health
DX: C90.00 Multiple myeloma not having achieved remission (principal)
CPT/HCPCS: 96401; J9041

== ENCOUNTER 2018-12-30 11:40 | Outpatient (CLI) | payer MEDICARE, BC, SELFPAY ==
[2018-12-30 11:41] VITALS: BMI 32.8
[2018-12-30 12:10] LABS: Basophils % 0.4 % (0.1-2.0); Eosinophils # 0.2 K/mm3 (0.0-0.4); Eosinophils % 1.9 % (0.1-12.0); Hematocrit 46.8 % (42.0-52.0); Hemoglobin 14.5 g/dL (14.1-18.0); Lymphocytes % 15.5 % (10-50); Mean Corpuscular Hemoglobin 29.9 pg (27.0-31.2); Mean Corpuscular Volume 96.5 fl (80-94); Mean Platelet Volume 8.1 fl (7.4-10.4); Monocytes # 0.8 K/mm3 (0.1-1.0); Monocytes % 6.1 % (1.7-9.3); Neutrophils # 9.6 K/mm3 (1.8-7.8); Neutrophils % 76.1 % (37.0-80.0); Platelet Count 280 K/mm3 (142-424); Red Blood Count 4.85 M/mm3 (4.60-6.20); Red Cell Distribution Width 14.7 % (11.5-17.5); White Blood Count 12.6 K/mm3 (4.8-10.8)
[2018-12-30 12:29] LABS: Alanine Aminotransferase 18 U/L (12-78); Albumin/Globulin Ratio 0.9 (1.1-1.8); Alkaline Phosphatase 102 U/L (46-116); Anion Gap 9.1 mEq/L (5-15); Aspartate Amino Transferase 16 U/L (15-37); Bilirubin,Total 0.6 mg/dL (0.2-1.0); Blood Urea Nitrogen 18 mg/dL (7-18); Calcium 9.1 mg/dL (8.5-10.1); Carbon Dioxide 30 mmol/L (21.0-32.0); Chloride 105 mmol/L (98-107); Creatinine Clearance Estimated 91 mL/min (50-200); Creatinine,Serum 1.15 mg/dL (0.70-1.30); Estimated Glomerular Filt Rate 62 ml/min (>60); GFR (African American) 75 ML/MIN (>60); Globulin 3.4 gm/dl (1.3-3.2); Glucose 87 mg/dL (74-106); Potassium 4.1 mmoL/L (3.5-5.1); Sodium 140 mmol/L (136-145); Total Protein,Serum 6.4 gm/dL (6.4-8.2)
[2018-12-30 13:25] VITALS: BP 157/74; PULSE 74; RESP 20; O2SAT 96
== END 2018-12-30 13:30 | disposition home or self-care (01) ==
LOC: INF 11:40
PROVIDERS: Visit Provider Internal Medicine Medical Oncology
DX: Z51.11 Encounter for antineoplastic chemotherapy (principal); C90.00 Multiple myeloma not having achieved remission
CPT/HCPCS: 36415; 80053; 85025; 96401; J9041

== ENCOUNTER → 2019-01-17 10:32 | Outpatient (POV) | payer MEDICARE, BC, SELFPAY ==
[2019-01-17 10:58] VITALS: BP 123/78; PULSE 81; RESP 18; O2SAT 99; BMI 36.3
--- NOTE | 2019-01-17 14:37 | HMH.PAINSOAP ---
[facility] Pain Management SOAP Note Subjective:: Patient is a pleasant 73-year-old white male who presents today for follow-up. Patient was implanted with a bupivacaine intrathecal pain pump. He is going to 2.5 mg/day and denies any pain. Patient has well approximated incisions with stitches still in place. No sign symptoms of infection. Patient is continuing his antibiotics. Overall patient is doing well. ROS General: no recent weight change, no fever, no sleep disturbances Respiratory: no cough, no shortness of air, no recurring pulmonary infections Cardiovascular/Peripheral Vascular: No chest pain, No palpitations, no edema, no shortness of breath. Gastrointestinal: no incontinence, normal bowel movements reported Genitourinary: no incontinence Musculoskeletal: Back pain, leg pain Psychiatric: normal mood/ affect Neurological: [denies weakness in extremities], [denies balance issues] Objective:: Physical Exam General: Alert and oriented x3, no acute distress, pleasant and cooperative, [on room air] Lungs: Resps E/U, Symmetrical chest expansion, Eyes: PERRL Musculoskeletal: Flexion and extension of lumbar spine somewhat guarded secondary to pain, deep tendon reflexes normal, strength in upper and lower extremities [5/5], [abnormal gait noted] Neurological: speech clear, re recording mixer equal, no gross sensory deficits Assessment:: Multiple myeloma Plan:: We will follow-up with the patient 2 weeks to have the stitches removed he is been instructed to call the office if he has any issues prior to his next appointment. He is going to continue taking his antibiotics. Dr. Queen has reviewed this note and agrees with this plan of care. This note was dictated using voice recognition software and may contain errors or omissions Pain Management Hx Components *Have you ever received a pneumonia vaccine?: Yes *Have you received a flu vaccine this season?: Yes - *Social History *Occupational Status:: other *Travel in the last 8 weeks: None
--- NOTE | 2019-01-17 14:40 | P.CONS_ITS ---
[facility] Pain Management SOAP Note Subjective:: Patient is a pleasant 73-year-old white male who presents today for follow-up. Patient was implanted with a bupivacaine intrathecal pain pump. He is going to 2.5 mg/day and denies any pain. Patient has well approximated incisions with stitches still in place. No sign symptoms of infection. Patient is continuing his antibiotics. Overall patient is doing well. ROS General: no recent weight change, no fever, no sleep disturbances Respiratory: no cough, no shortness of air, no recurring pulmonary infections Cardiovascular/Peripheral Vascular: No chest pain, No palpitations, no edema, no shortness of breath. Gastrointestinal: no incontinence, normal bowel movements reported Genitourinary: no incontinence Musculoskeletal: Back pain, leg pain Psychiatric: normal mood/ affect Neurological: [denies weakness in extremities], [denies balance issues] Objective:: Physical Exam General: Alert and oriented x3, no acute distress, pleasant and cooperative, [on room air] Lungs: Resps E/U, Symmetrical chest expansion, Eyes: PERRL Musculoskeletal: Flexion and extension of lumbar spine somewhat guarded secondary to pain, deep tendon reflexes normal, strength in upper and lower extremities [5/5], [abnormal gait noted] Neurological: speech clear, cutting machine tender decorative equal, no gross sensory deficits Assessment:: Multiple myeloma Plan:: We will follow-up with the patient 2 weeks to have the stitches removed he is been instructed to call the office if he has any issues prior to his next appointment. He is going to continue taking his antibiotics. Dr. Queen has reviewed this note and agrees with this plan of care. This note was dictated using voice recognition software and may contain errors or omissions Pain Management Hx Components *Have you ever received a pneumonia vaccine?: Yes *Have you received a flu vaccine this season?: Yes - *Social History *Occupational Status:: other *Travel in the last 8 weeks: None
== END ==
PROVIDERS: PCP Internal Medicine Adolescent Medicine; Visit Provider Clinical Nurse Specialist Family Health
DX: C90.00 Multiple myeloma not having achieved remission (principal)
CPT/HCPCS: 99212

== ENCOUNTER 2019-01-20 10:58 | Outpatient (CLI) | payer MEDICARE, BC, SELFPAY ==
[2019-01-20 11:00] VITALS: BMI 35.2
[2019-01-20 11:18] LABS: Basophils # 0.1 K/mm3 (0-0.2); Eosinophils # 0.5 K/mm3 (0.0-0.4); Eosinophils % 5.4 % (0.1-12.0); Hemoglobin 14.3 g/dL (14.1-18.0); Lymphocytes # 1.7 K/mm3 (0.7-4.5); Lymphocytes % 19.7 % (10-50); Mean Corpuscular HGB Conc 31.7 g/dL (31.8-35.4); Mean Corpuscular Hemoglobin 30.1 pg (27.0-31.2); Mean Platelet Volume 7.2 fl (7.4-10.4); Monocytes # 0.8 K/mm3 (0.1-1.0); Monocytes % 9.1 % (1.7-9.3); Neutrophils # 5.5 K/mm3 (1.8-7.8); Neutrophils % 64.9 % (37.0-80.0); Platelet Count 341 K/mm3 (142-424); Red Blood Count 4.73 M/mm3 (4.60-6.20); Red Cell Distribution Width 14.3 % (11.5-17.5); White Blood Count 8.5 K/mm3 (4.8-10.8)
[2019-01-20 11:32] LABS: Anion Gap 12.2 mEq/L (5-15); Blood Urea Nitrogen 16 mg/dL (7-18); Carbon Dioxide 28 mmol/L (21.0-32.0); Chloride 104 mmol/L (98-107); Potassium 4.2 mmoL/L (3.5-5.1); Sodium 140 mmol/L (136-145)
[2019-01-20 11:33] LABS: Alanine Aminotransferase 16 U/L (12-78); Albumin/Globulin Ratio 0.9 (1.1-1.8); Alkaline Phosphatase 89 U/L (46-116); Aspartate Amino Transferase 14 U/L (15-37); Bilirubin,Total 0.4 mg/dL (0.2-1.0); Calcium 8.7 mg/dL (8.5-10.1); Creatinine Clearance Estimated 84 mL/min (50-200); Estimated Glomerular Filt Rate 54 ml/min (>60); GFR (African American) 65 ML/MIN (>60); Globulin 3.5 gm/dl (1.3-3.2); Glucose 100 mg/dL (74-106); Total Protein,Serum 6.5 gm/dL (6.4-8.2)
[2019-01-20 12:56] VITALS: BP 130/71; PULSE 80; RESP 20
== END 2019-01-20 13:05 | disposition home or self-care (01) ==
LOC: INF 10:58
PROVIDERS: Visit Provider Internal Medicine Medical Oncology
DX: C90.00 Multiple myeloma not having achieved remission (principal)
CPT/HCPCS: 36415; 80053; 85025; 96401; J9041

== ENCOUNTER 2019-01-27 11:00 | Outpatient (CLI) | payer MEDICARE, BC, SELFPAY ==
[2019-01-27 12:05] VITALS: BP 161/101; PULSE 81; RESP 18; O2SAT 96
== END 2019-01-27 12:20 | disposition home or self-care (01) ==
LOC: INF 11:10
PROVIDERS: Visit Provider Internal Medicine Medical Oncology
DX: C90.00 Multiple myeloma not having achieved remission (principal)
CPT/HCPCS: 96401; J9041

== ENCOUNTER → 2019-01-31 13:32 | Outpatient (POV) | payer MEDICARE, BC, SELFPAY ==
[2019-01-31 14:30] VITALS: BP 135/86; PULSE 81; RESP 18; O2SAT 98; BMI 34.7
--- NOTE | 2019-02-01 10:45 | P.CONS_ITS ---
[facility] Pain Management SOAP Note Subjective:: Patient is a pleasant 73-year-old white male who presents today for follow-up. Patient had an implanted intrathecal pain pump utilizing bupivacaine going at 2.5 mg a day. He denies any pain. Patient is beginning to do physical therapy. Patient stitches have been removed there is no sign symptoms of infection patient completed his antibiotics and overall is doing well ROS General: no recent weight change, no fever, no sleep disturbances Respiratory: no cough, no shortness of air, no recurring pulmonary infections Cardiovascular/Peripheral Vascular: No chest pain, No palpitations, no edema, no shortness of breath. Gastrointestinal: no incontinence, normal bowel movements reported Genitourinary: no incontinence Musculoskeletal: Back and leg pain at times Psychiatric: normal mood/ affect, [denies depression], [denies anxiety] Neurological: [denies weakness in extremities], [denies balance issues] Objective:: Physical Exam General: Alert and oriented x3, no acute distress, pleasant and cooperative, [on room air] Lungs: Resps E/U, Symmetrical chest expansion Eyes: PERRL Musculoskeletal: Flexion and extension of lumbar spine somewhat guarded secondary to pain, deep tendon reflexes normal, strength in upper and lower extremities [5/5], [abnormal gait noted] Neurological: speech clear, collection team lead equal, no gross sensory deficits Assessment:: multiple myeloma Plan:: We will see the patient back in 1 month and reassess his symptoms at that time. Patient's been instructed to call the office if he has any issues prior to his next appointment. Dr. Queen has reviewed this note and agrees with this plan of care. This note was dictated using voice recognition software and may contain errors or omissions [facility] History I have reviewed the patient's past medical history: Yes Medical History: Reports:: Atrial Fibrillation, Cancer, Congestive Heart Failure, Hyperlipidemia, Hypertension, Lung Disease Denies:: Diabetes Mellitus Type 1, Diabetes Mellitus Type 2, Internal Pacemaker, MRSA, Seizures *Have you ever received a pneumonia vaccine?: Yes *Have you received a flu vaccine this season?: Yes Other Medical History: Denies: Blood Transfusion Reaction Laterality Cases: Bilateral: Myringotomy (Ear Tubes), Other Other Surgeries: Yes: Cardiac Catheterization, Cholecystectomy, Sinus Surgery, Other (pain pump). No: Pacemaker Amputation: No Fractures: No - *Social History Smoking Status: Never smoker Tobacco Type: cigarettes # Packs/Day (cigarettes): 1 Alcohol Intake: never Substance Use Type: denies use *Occupational Status:: other Housing: house Household Members: spouse *Travel in the last 8 weeks: None Family Hx:: Anemia, Heart Attack
== END ==
PROVIDERS: PCP Internal Medicine Adolescent Medicine; Visit Provider Clinical Nurse Specialist Family Health
DX: C90.00 Multiple myeloma not having achieved remission (principal)
CPT/HCPCS: 99213

== ENCOUNTER 2019-02-03 12:35 | Outpatient (CLI) | payer MEDICARE, BC, SELFPAY ==
[2019-02-03 13:10] VITALS: BP 113/77; PULSE 82; RESP 18; O2SAT 95
== END 2019-02-03 13:23 | disposition home or self-care (01) ==
LOC: INF 12:35
PROVIDERS: Visit Provider Internal Medicine Medical Oncology
DX: C90.00 Multiple myeloma not having achieved remission (principal)
CPT/HCPCS: 96401; J9041

== ENCOUNTER 2019-02-17 09:49 | Outpatient (CLI) | payer MEDICARE, BC, SELFPAY ==
[2019-02-17 09:52] VITALS: BMI 35.6
[2019-02-17 10:35] LABS: Basophils # 0.1 K/mm3 (0-0.2); Eosinophils # 0.4 K/mm3 (0.0-0.4); Eosinophils % 4.9 % (0.1-12.0); Hematocrit 45.5 % (42.0-52.0); Hemoglobin 13.4 g/dL (14.1-18.0); Lymphocytes # 1.3 K/mm3 (0.7-4.5); Lymphocytes % 15.9 % (10-50); Mean Corpuscular HGB Conc 29.5 g/dL (31.8-35.4); Mean Corpuscular Hemoglobin 28.9 pg (27.0-31.2); Mean Platelet Volume 7.8 fl (7.4-10.4); Monocytes # 0.6 K/mm3 (0.1-1.0); Monocytes % 7.3 % (1.7-9.3); Neutrophils # 5.8 K/mm3 (1.8-7.8); Neutrophils % 70.8 % (37.0-80.0); Platelet Count 278 K/mm3 (142-424); Red Blood Count 4.64 M/mm3 (4.60-6.20); Red Cell Distribution Width 16.5 % (11.5-17.5); White Blood Count 8.2 K/mm3 (4.8-10.8)
[2019-02-17 10:50] LABS: Alanine Aminotransferase 10 U/L (12-78); Albumin/Globulin Ratio 0.9 (1.1-1.8); Alkaline Phosphatase 84 U/L (46-116); Anion Gap 9.1 mEq/L (5-15); Aspartate Amino Transferase 7 U/L (15-37); Bilirubin,Total 0.7 mg/dL (0.2-1.0); Blood Urea Nitrogen 11 mg/dL (7-18); Calcium 8.7 mg/dL (8.5-10.1); Carbon Dioxide 30 mmol/L (21.0-32.0); Chloride 108 mmol/L (98-107); Creatinine Clearance Estimated 99 mL/min (50-200); Creatinine,Serum 1.12 mg/dL (0.70-1.30); Estimated Glomerular Filt Rate 64 ml/min (>60); GFR (African American) 77 ML/MIN (>60); Globulin 3.2 gm/dl (1.3-3.2); Glucose 90 mg/dL (74-106); Potassium 4.1 mmoL/L (3.5-5.1); Sodium 143 mmol/L (136-145); Total Protein,Serum 6.2 gm/dL (6.4-8.2)
[2019-02-17 11:25] VITALS: BP 137/86; PULSE 78; RESP 18; TEMP 36.2; O2SAT 95
[2019-02-18 15:10] LABS: Albumin 3.2 g/dL (2.9-4.4); Alpha-1-Globulin 0.3 g/dL (0.0-0.4); Alpha-2-Globulin 0.8 g/dL (0.4-1.0); Free Kappa Lt Chains 28.3 mg/L (3.3-19.4); Free Lambda Lt Chains 8.3 mg/L (5.7-26.3); Gamma Globulin 0.7 g/dL (0.4-1.8); Protein, Total 5.7 g/dL (6.0-8.5)
[2019-02-21 17:10] LABS: Immunoglobulin G, Qn 787 mg/dL (700-1600)
[2019-02-24 17:00] LABS: Immunoglobulin A, Qn 42 mg/dL (61-437); Immunoglobulin M, Qn 9 mg/dL (15-143)
== END 2019-02-17 11:40 | disposition home or self-care (01) ==
LOC: INF 09:49
PROVIDERS: Visit Provider Internal Medicine Medical Oncology
DX: Z51.11 Encounter for antineoplastic chemotherapy (principal); C90.00 Multiple myeloma not having achieved remission
CPT/HCPCS: 36415; 80053; 82784; 83883; 84155; 84165; 85025; 86334; 96401; J9041

== ENCOUNTER 2019-02-24 12:30 | Outpatient (CLI) | payer MEDICARE, BC, SELFPAY ==
[2019-02-24 13:15] VITALS: BP 112/68; PULSE 70; RESP 18; TEMP 36.5; O2SAT 96
== END 2019-02-24 13:30 | disposition home or self-care (01) ==
LOC: INF 12:38
PROVIDERS: Visit Provider Internal Medicine Medical Oncology
DX: Z51.11 Encounter for antineoplastic chemotherapy (principal); C90.00 Multiple myeloma not having achieved remission
CPT/HCPCS: 96401; J9041

== ENCOUNTER → 2019-03-01 12:59 | Day surgery (SDC) | payer MEDICARE, BC, SELFPAY ==
[2019-03-01 13:35] VITALS: BP 132/70; PULSE 80; RESP 18; O2SAT 95; BMI 33.9
[2019-03-01 13:50] VITALS: BP 127/74; PULSE 80; RESP 18; O2SAT 96
[2019-03-01 13:52] VITALS: BP 129/79; PULSE 75; RESP 18; O2SAT 97
--- NOTE | 2019-03-01 14:11 | HMH.PMPROC ---
- Procedure Date: 03/01/19 Time: 14:12 Anesthesiologist:: hSannan Barraza APRN Complications:: None Pre-procedure Diagnosis:: Multiple myeloma Post-procedure Diagnosis:: Same Indications for Procedure:: Patient is a pleasant 73-year-old white male who presents today for follow-up. He is being treated for multiple myeloma. He currently has a new intrathecal bupivacaine pump at 2.5 mg/day. Patient is here today to have his medication removed with no new concentration. She denies any side effects to his medication. Patient's Hector #[id number] has been reviewed and is appropriate. His urine drug screens have been appropriate. He rates his pain a 2 out of 10. Physical exam General: Alert and oriented x3, no acute distress, pleasant and cooperative, [on room air] Lungs: Respirations even and unlabored, symmetrical chest expansion Eyes: PERRL Musculoskeletal: Flexion and extension of lumbar spine somewhat guarded secondary to pain, deep tendon reflexes normal, strength in upper and lower extremities [5/5], [abnormal gait noted] Neurological: Speech clear, cocoa butter filter operator equal, no gross sensory deficit Procedure Details:: Informed consent was obtained and the risk and benefits of the procedure were explained to the patient. The patient was taken to the procedure room where noninvasive monitoring was placed including noninvasive blood pressure cuff and pulse oximeter. Patient's pump was interrogated. The area over the pump was cleansed with chlorhexidine as a cleansing solution. In sterile fashion the pump was accessed with a 22-gauge needle. Unfortunately, I was unable to access the intrathecal pain pump today. We will see the patient back when Dr. Queen is available to reaccessed the pump and remove medication and refill the patient with Plan and Disposition:: I was unsuccessful in accessing the patient's intrathecal pain pump today. Patient will return to the clinic in 1 week to have his pump reaccessed with Dr. Queen. Patient has been instructed to contact the clinic if he has any concerns before his next appointment. Dr. Queen has reviewed this note and agrees with this plan of care. This note was dictated using voice recognition software and make contain errors or omissions.
--- NOTE | 2019-03-01 14:15 | P.PCN_ITS ---
- Procedure Date: 03/01/19 Time: 14:12 Anesthesiologist:: Shannan Barraza APRN Complications:: None Pre-procedure Diagnosis:: Multiple myeloma Post-procedure Diagnosis:: Same Indications for Procedure:: Patient is a pleasant 73-year-old white male who presents today for follow-up. He is being treated for multiple myeloma. He currently has a new intrathecal bupivacaine pump at 2.5 mg/day. Patient is here today to have his medication removed with no new concentration. She denies any side effects to his medication. Patient's Hector #[id number] has been reviewed and is appropriate. His urine drug screens have been appropriate. He rates his pain a 2 out of 10. Physical exam General: Alert and oriented x3, no acute distress, pleasant and cooperative, [on room air] Lungs: Respirations even and unlabored, symmetrical chest expansion Eyes: PERRL Musculoskeletal: Flexion and extension of lumbar spine somewhat guarded secondary to pain, deep tendon reflexes normal, strength in upper and lower extremities [5/5], [abnormal gait noted] Neurological: Speech clear, splitting machine operator equal, no gross sensory deficit Procedure Details:: Informed consent was obtained and the risk and benefits of the procedure were explained to the patient. The patient was taken to the procedure room where noninvasive monitoring was placed including noninvasive blood pressure cuff and pulse oximeter. Patient's pump was interrogated. The area over the pump was cleansed with chlorhexidine as a cleansing solution. In sterile fashion the pump was accessed with a 22-gauge needle. Unfortunately, I was unable to access the intrathecal pain pump today. We will see the patient back when Dr. Queen is available to reaccessed the pump and remove medication and refill the patient with Plan and Disposition:: I was unsuccessful in accessing the patient's intrathecal pain pump today. Patient will return to the clinic in 1 week to have his pump reaccessed with Dr. Queen. Patient has been instructed to contact the clinic if he has any concerns before his next appointment. Dr. Queen has reviewed this note and agrees with this plan of care. This note was dictated using voice recognition software and make contain errors or omissions.
== END ==
PROVIDERS: Visit Provider Clinical Nurse Specialist Family Health
DX: C90.00 Multiple myeloma not having achieved remission (principal)
CPT/HCPCS: 95991

== ENCOUNTER 2019-03-03 13:05 | Outpatient (CLI) | payer MEDICARE, BC, SELFPAY ==
[2019-03-03 13:31] VITALS: BP 117/73; PULSE 79; RESP 20; TEMP 36.6; O2SAT 98
--- NOTE | 2019-03-03 13:39 | XR_ITS ---
PROCEDURE: XR HUMERUS LT CLINICAL INDICATION: RECENT FALL , MULTIPLE MYELOMA COMPARISON: No exams were available for comparison FINDINGS: No fracture or dislocation. No lytic or blastic change. There is normal mineralization. There is some minimal cortical regularity involving the greater tuberosity of the humerus. No fracture or dislocation. No bony destructive process evident. Other findings:None. IMPRESSION: No acute finding Dictated by: Wilson Gore MD 03/03/2019 14:08 Electronically signed by Wilson Gore MD in [place] 03/03/2019 14:08
--- NOTE | 2019-03-03 13:39 | XR_ITS ---
PROCEDURE: XR SHOULDER LT MIN 2V CLINICAL INDICATION: RECENT FALL , MULTIPLE MYELOMA Pain following injury COMPARISON: Ribs L from 12/11/2018 FINDINGS: No obvious fracture or dislocation. There is subacromial stenosis. No significant arthritic change. Fibrotic or atelectatic changes are present in the left mid lung IMPRESSION: Subacromial stenosis otherwise negative Dictated by: Wilson Gore MD 03/03/2019 14:08 Electronically signed by Wilson Gore MD in [facility] 03/03/2019 14:08
== END 2019-03-03 13:40 | disposition home or self-care (01) ==
LOC: INF 13:05 → RAD 13:36
PROVIDERS: Visit Provider Internal Medicine Medical Oncology
DX: M25.512 Pain in left shoulder (principal); C90.00 Multiple myeloma not having achieved remission
CPT/HCPCS: 73030; 73060; 96401; J9041

== ENCOUNTER 2019-03-17 11:06 | Outpatient (CLI) | payer MEDICARE, BC, SELFPAY ==
[2019-03-17 11:06] VITALS: BMI 34.7
[2019-03-17 11:27] LABS: Basophils # 0.1 K/mm3 (0-0.2); Eosinophils # 0.4 K/mm3 (0.0-0.4); Eosinophils % 5.1 % (0.1-12.0); Hematocrit 45.6 % (42.0-52.0); Hemoglobin 14.5 g/dL (14.1-18.0); Lymphocytes % 11.1 % (10-50); Mean Corpuscular HGB Conc 31.8 g/dL (31.8-35.4); Mean Corpuscular Hemoglobin 31.3 pg (27.0-31.2); Mean Corpuscular Volume 98.6 fl (80-94); Mean Platelet Volume 7.7 fl (7.4-10.4); Monocytes # 0.6 K/mm3 (0.1-1.0); Monocytes % 6.9 % (1.7-9.3); Neutrophils # 6.7 K/mm3 (1.8-7.8); Neutrophils % 75.8 % (37.0-80.0); Platelet Count 262 K/mm3 (142-424); Red Blood Count 4.62 M/mm3 (4.60-6.20); White Blood Count 8.8 K/mm3 (4.8-10.8)
[2019-03-17 11:42] LABS: Alanine Aminotransferase 10 U/L (12-78); Albumin Level 3.1 gm/dL (3.4-5.0); Alkaline Phosphatase 89 U/L (46-116); Anion Gap 9.4 mEq/L (5-15); Aspartate Amino Transferase 8 U/L (15-37); Bilirubin,Total 0.9 mg/dL (0.2-1.0); Blood Urea Nitrogen 11 mg/dL (7-18); Calcium 8.7 mg/dL (8.5-10.1); Carbon Dioxide 30 mmol/L (21.0-32.0); Chloride 105 mmol/L (98-107); Creatinine Clearance Estimated 85 mL/min (50-200); Creatinine,Serum 1.24 mg/dL (0.70-1.30); Estimated Glomerular Filt Rate 57 ml/min (>60); GFR (African American) 69 ML/MIN (>60); Glucose 90 mg/dL (74-106); Potassium 4.4 mmoL/L (3.5-5.1); Sodium 140 mmol/L (136-145); Total Protein,Serum 6.1 gm/dL (6.4-8.2)
[2019-03-17 12:10] VITALS: BP 107/68; PULSE 82; RESP 18; TEMP 36.4; O2SAT 95
[2019-03-18 16:10] LABS: Albumin 3.2 g/dL (2.9-4.4); Alpha-1-Globulin 0.3 g/dL (0.0-0.4); Alpha-2-Globulin 0.8 g/dL (0.4-1.0); Gamma Globulin 0.8 g/dL (0.4-1.8); Protein, Total 5.8 g/dL (6.0-8.5)
[2019-03-18 17:08] LABS: Free Kappa Lt Chains 18.4 mg/L (3.3-19.4); Free Lambda Lt Chains 8.3 mg/L (5.7-26.3); Immunoglobulin G, Qn 741 mg/dL (700-1600)
[2019-03-18 17:18] LABS: Immunoglobulin A, Qn 39 mg/dL (61-437)
[2019-03-18 17:19] LABS: Immunoglobulin M, Qn 8 mg/dL (15-143)
== END 2019-03-17 12:25 | disposition home or self-care (01) ==
LOC: INF 11:06
PROVIDERS: Visit Provider Internal Medicine Medical Oncology
DX: C90.00 Multiple myeloma not having achieved remission (principal)
CPT/HCPCS: 36415; 80053; 82784; 83883; 84155; 84165; 85025; 86334; 96401; J9041

== ENCOUNTER 2019-03-24 12:55 | Outpatient (CLI) | payer MEDICARE, BC, SELFPAY ==
[2019-03-24 13:15] VITALS: BP 116/74; PULSE 68; RESP 20; TEMP 36.9; O2SAT 95
== END 2019-03-24 13:15 | disposition home or self-care (01) ==
LOC: INF 12:55
PROVIDERS: Visit Provider Internal Medicine Medical Oncology
DX: Z51.11 Encounter for antineoplastic chemotherapy (principal); C90.00 Multiple myeloma not having achieved remission
CPT/HCPCS: 96401; J9041

== ENCOUNTER 2019-03-31 12:37 | Outpatient (CLI) | payer MEDICARE, BC, SELFPAY ==
[2019-03-31 13:07] VITALS: BP 126/80; PULSE 90; RESP 18; O2SAT 93
== END 2019-03-31 13:12 | disposition home or self-care (01) ==
LOC: INF 12:37
PROVIDERS: Visit Provider Internal Medicine Medical Oncology
DX: Z51.11 Encounter for antineoplastic chemotherapy (principal); C90.00 Multiple myeloma not having achieved remission
CPT/HCPCS: 96401; J9041

== ENCOUNTER 2019-04-14 08:35 | Outpatient (CLI) | payer MEDICARE, BC, SELFPAY ==
[2019-04-14 08:40] VITALS: BMI 31.5
[2019-04-14 09:05] LABS: Basophils # 0.1 K/mm3 (0-0.2); Basophils % 0.8 % (0.1-2.0); Eosinophils # 0.5 K/mm3 (0.0-0.4); Eosinophils % 6.1 % (0.1-12.0); Hematocrit 44.3 % (42.0-52.0); Hemoglobin 14.3 g/dL (14.1-18.0); Lymphocytes # 1.1 K/mm3 (0.7-4.5); Lymphocytes % 14.3 % (10-50); Mean Corpuscular HGB Conc 32.2 g/dL (31.8-35.4); Mean Corpuscular Hemoglobin 31.2 pg (27.0-31.2); Mean Corpuscular Volume 96.9 fl (80-94); Mean Platelet Volume 8.4 fl (7.4-10.4); Monocytes # 0.5 K/mm3 (0.1-1.0); Monocytes % 6.7 % (1.7-9.3); Neutrophils # 5.4 K/mm3 (1.8-7.8); Neutrophils % 72.1 % (37.0-80.0); Platelet Count 242 K/mm3 (142-424); Red Blood Count 4.57 M/mm3 (4.60-6.20); White Blood Count 7.4 K/mm3 (4.8-10.8)
[2019-04-14 09:17] LABS: Alanine Aminotransferase 11 U/L (12-78); Albumin Level 3.1 gm/dL (3.4-5.0); Alkaline Phosphatase 85 U/L (46-116); Anion Gap 10.7 mEq/L (5-15); Aspartate Amino Transferase 12 U/L (15-37); Blood Urea Nitrogen 15 mg/dL (7-18); Calcium 8.4 mg/dL (8.5-10.1); Carbon Dioxide 29 mmol/L (21.0-32.0); Chloride 108 mmol/L (98-107); Creatinine Clearance Estimated 82 mL/min (50-200); Creatinine,Serum 1.18 mg/dL (0.70-1.30); Estimated Glomerular Filt Rate 60 ml/min (>60); GFR (African American) 73 ML/MIN (>60); Glucose 89 mg/dL (74-106); Potassium 3.7 mmoL/L (3.5-5.1); Sodium 144 mmol/L (136-145); Total Protein,Serum 6.1 gm/dL (6.4-8.2)
[2019-04-14 11:15] VITALS: BP 120/65; PULSE 86; RESP 18; O2SAT 94
[2019-04-15 17:25] LABS: Albumin 3.2 g/dL (2.9-4.4); Alpha-1-Globulin 0.3 g/dL (0.0-0.4); Alpha-2-Globulin 0.8 g/dL (0.4-1.0); Free Kappa Lt Chains 17.9 mg/L (3.3-19.4); Free Lambda Lt Chains 5.9 mg/L (5.7-26.3); Gamma Globulin 0.6 g/dL (0.4-1.8); Protein, Total 5.7 g/dL (6.0-8.5)
== END 2019-04-14 11:20 | disposition home or self-care (01) ==
LOC: INF 08:36
PROVIDERS: Visit Provider Internal Medicine Medical Oncology
DX: Z51.11 Encounter for antineoplastic chemotherapy (principal); C90.00 Multiple myeloma not having achieved remission
CPT/HCPCS: 36415; 80053; 83883; 84155; 84165; 85025; 96401; J9041

== ENCOUNTER 2019-04-21 13:05 | Outpatient (CLI) | payer MEDICARE, BC, SELFPAY ==
[2019-04-21 13:15] VITALS: BP 122/74; PULSE 68; RESP 20; TEMP 36.9; O2SAT 95
[2019-04-21 13:45] VITALS: BP 115/69; PULSE 68; RESP 20; TEMP 36.9; O2SAT 95
== END 2019-04-21 13:25 | disposition home or self-care (01) ==
LOC: INF 13:05
PROVIDERS: Visit Provider Internal Medicine Medical Oncology
DX: C90.00 Multiple myeloma not having achieved remission (principal)
CPT/HCPCS: 96401; J9041

== ENCOUNTER 2019-04-28 12:39 | Outpatient (CLI) | payer MEDICARE, BC, SELFPAY ==
[2019-04-28 13:13] VITALS: BP 119/75; PULSE 72; RESP 18
== END 2019-04-28 13:13 | disposition home or self-care (01) ==
LOC: INF 12:39
PROVIDERS: Visit Provider Internal Medicine Medical Oncology
DX: C90.00 Multiple myeloma not having achieved remission (principal); Z51.11 Encounter for antineoplastic chemotherapy
CPT/HCPCS: 96401; J9041

== ENCOUNTER 2019-05-12 08:40 | Outpatient (CLI) | payer MEDICARE, BC, SELFPAY ==
[2019-05-12 08:42] VITALS: BMI 33.5
[2019-05-12 09:19] LABS: Basophils # 0.1 K/mm3 (0-0.2); Eosinophils # 0.5 K/mm3 (0.0-0.4); Eosinophils % 7.3 % (0.1-12.0); Hematocrit 39.5 % (42.0-52.0); Hemoglobin 13.2 g/dL (14.1-18.0); Lymphocytes # 0.7 K/mm3 (0.7-4.5); Lymphocytes % 11.5 % (10-50); Mean Corpuscular HGB Conc 33.3 g/dL (31.8-35.4); Mean Corpuscular Hemoglobin 32.6 pg (27.0-31.2); Mean Corpuscular Volume 97.8 fl (80-94); Mean Platelet Volume 8.3 fl (7.4-10.4); Monocytes # 0.5 K/mm3 (0.1-1.0); Monocytes % 7.1 % (1.7-9.3); Neutrophils # 4.7 K/mm3 (1.8-7.8); Neutrophils % 73.1 % (37.0-80.0); Platelet Count 216 K/mm3 (142-424); Red Blood Count 4.04 M/mm3 (4.60-6.20); Red Cell Distribution Width 15.5 % (11.5-17.5); White Blood Count 6.4 K/mm3 (4.8-10.8)
[2019-05-12 09:32] LABS: Alanine Aminotransferase 10 U/L (12-78); Albumin Level 2.9 gm/dL (3.4-5.0); Albumin/Globulin Ratio 1.1 (1.1-1.8); Alkaline Phosphatase 68 U/L (46-116); Anion Gap 9.6 mEq/L (5-15); Aspartate Amino Transferase 10 U/L (15-37); Bilirubin,Total 1.5 mg/dL (0.2-1.0); Blood Urea Nitrogen 12 mg/dL (7-18); Calcium 8.6 mg/dL (8.5-10.1); Carbon Dioxide 30 mmol/L (21.0-32.0); Chloride 108 mmol/L (98-107); Creatinine Clearance Estimated 89 mL/min (50-200); Creatinine,Serum 1.15 mg/dL (0.70-1.30); Estimated Glomerular Filt Rate 62 ml/min (>60); GFR (African American) 75 ML/MIN (>60); Globulin 2.7 gm/dl (1.3-3.2); Glucose 96 mg/dL (74-106); Potassium 3.6 mmoL/L (3.5-5.1); Sodium 144 mmol/L (136-145); Total Protein,Serum 5.6 gm/dL (6.4-8.2)
[2019-05-12 10:49] VITALS: BP 112/72; PULSE 81; RESP 18; TEMP 36.7
[2019-05-13 15:28] LABS: Albumin 3.1 g/dL (2.9-4.4); Alpha-1-Globulin 0.3 g/dL (0.0-0.4); Alpha-2-Globulin 0.8 g/dL (0.4-1.0); Gamma Globulin 0.5 g/dL (0.4-1.8); Immunoglobulin G, Qn 602 mg/dL (700-1600); Protein, Total 5.5 g/dL (6.0-8.5)
[2019-05-13 16:10] LABS: Free Kappa Lt Chains 16.8 mg/L (3.3-19.4); Free Lambda Lt Chains 4.8 mg/L (5.7-26.3)
[2019-05-13 17:32] LABS: Immunoglobulin A, Qn 35 mg/dL (61-437); Immunoglobulin M, Qn 6 mg/dL (15-143)
== END 2019-05-12 10:55 | disposition home or self-care (01) ==
LOC: INF 08:56
PROVIDERS: Visit Provider Internal Medicine Medical Oncology
DX: C90.00 Multiple myeloma not having achieved remission (principal); Z51.11 Encounter for antineoplastic chemotherapy
CPT/HCPCS: 36415; 80053; 82784; 83883; 84155; 84165; 85025; 86334; 96401; J9041

== ENCOUNTER 2019-05-19 08:55 | Outpatient (CLI) | payer MEDICARE, BC, SELFPAY ==
[2019-05-19 09:25] VITALS: BP 110/58; PULSE 72; RESP 18; TEMP 36.6; O2SAT 97
== END 2019-05-19 09:40 | disposition home or self-care (01) ==
LOC: INF 09:03
PROVIDERS: Visit Provider Internal Medicine Medical Oncology
DX: Z51.11 Encounter for antineoplastic chemotherapy (principal); C90.00 Multiple myeloma not having achieved remission
CPT/HCPCS: 96401; J9041

== ENCOUNTER 2019-05-26 11:12 | Outpatient (CLI) | payer MEDICARE, BC, SELFPAY ==
[2019-05-26 11:30] VITALS: BP 112/58; PULSE 74; RESP 18; TEMP 36.6; O2SAT 95
== END 2019-05-26 11:36 | disposition home or self-care (01) ==
LOC: INF 11:12
PROVIDERS: Visit Provider Internal Medicine Medical Oncology
DX: C90.00 Multiple myeloma not having achieved remission (principal)
CPT/HCPCS: 96401; J9041

== ENCOUNTER 2019-06-10 08:29 | Outpatient (CLI) | payer MEDICARE, BC, SELFPAY ==
[2019-06-10 08:29] VITALS: BMI 34.4
[2019-06-10 08:50] LABS: Basophils # 0.1 K/mm3 (0-0.2); Basophils % 1.2 % (0.1-2.0); Eosinophils # 0.4 K/mm3 (0.0-0.4); Eosinophils % 5.7 % (0.1-12.0); Hematocrit 40.7 % (42.0-52.0); Lymphocytes # 0.7 K/mm3 (0.7-4.5); Lymphocytes % 10.3 % (10-50); Mean Corpuscular HGB Conc 31.9 g/dL (31.8-35.4); Mean Corpuscular Hemoglobin 33.1 pg (27.0-31.2); Mean Corpuscular Volume 103.7 fl (80-94); Mean Platelet Volume 8.8 fl (7.4-10.4); Monocytes # 0.5 K/mm3 (0.1-1.0); Neutrophils # 5.1 K/mm3 (1.8-7.8); Neutrophils % 75.7 % (37.0-80.0); Platelet Count 198 K/mm3 (142-424); Red Blood Count 3.93 M/mm3 (4.60-6.20); Red Cell Distribution Width 15.7 % (11.5-17.5); White Blood Count 6.7 K/mm3 (4.8-10.8)
[2019-06-10 09:21] LABS: Alanine Aminotransferase 13 U/L (12-78); Albumin/Globulin Ratio 1.1 (1.1-1.8); Alkaline Phosphatase 74 U/L (46-116); Aspartate Amino Transferase 11 U/L (15-37); Bilirubin,Total 0.8 mg/dL (0.2-1.0); Blood Urea Nitrogen 21 mg/dL (7-18); Calcium 8.9 mg/dL (8.5-10.1); Carbon Dioxide 31 mmol/L (21.0-32.0); Chloride 108 mmol/L (98-107); Creatinine Clearance Estimated 81 mL/min (50-200); Creatinine,Serum 1.27 mg/dL (0.70-1.30); Estimated Glomerular Filt Rate 55 ml/min (>60); GFR (African American) 67 ML/MIN (>60); Globulin 2.8 gm/dl (1.3-3.2); Glucose 76 mg/dL (74-106); Sodium 145 mmol/L (136-145); Total Protein,Serum 5.8 gm/dL (6.4-8.2)
[2019-06-10 10:49] VITALS: BP 132/69; PULSE 77; RESP 20; TEMP 36.5; O2SAT 96
== END 2019-06-10 10:55 | disposition home or self-care (01) ==
LOC: INF 08:29
PROVIDERS: Visit Provider Internal Medicine Medical Oncology
DX: Z51.11 Encounter for antineoplastic chemotherapy (principal); C90.00 Multiple myeloma not having achieved remission
CPT/HCPCS: 36415; 80053; 85025; 96401; J9041

== ENCOUNTER 2019-06-16 08:54 | Outpatient (CLI) | payer MEDICARE, BC, SELFPAY ==
[2019-06-16 09:23] VITALS: BP 120/78; PULSE 86; RESP 18; TEMP 36.6; O2SAT 94
== END 2019-06-16 09:25 | disposition home or self-care (01) ==
LOC: INF 08:54
PROVIDERS: Visit Provider Internal Medicine Medical Oncology
DX: C90.00 Multiple myeloma not having achieved remission (principal)
CPT/HCPCS: 96401; J9041

== ENCOUNTER 2019-06-23 08:58 | Outpatient (CLI) | payer MEDICARE, BC, SELFPAY ==
[2019-06-23 09:25] VITALS: BP 133/54; PULSE 76; RESP 18; O2SAT 94
== END 2019-06-23 09:25 | disposition home or self-care (01) ==
LOC: INF 08:58
PROVIDERS: Visit Provider Internal Medicine Medical Oncology
DX: C90.00 Multiple myeloma not having achieved remission (principal)
CPT/HCPCS: 96401; J9041

== ENCOUNTER 2019-07-07 09:05 | Outpatient (CLI) | payer MEDICARE, BC, SELFPAY ==
[2019-07-07 09:07] VITALS: BMI 34.4
--- NOTE | 2019-07-07 09:25 | PC.NURSE ---
lab staff sissy blood for labs prior to md appt, pt and family attending oncology appt and will return for tx after
[2019-07-07 09:30] LABS: Basophils # 0.1 K/mm3 (0-0.2); Basophils % 0.9 % (0.1-2.0); Eosinophils # 0.4 K/mm3 (0.0-0.4); Eosinophils % 6.1 % (0.1-12.0); Hematocrit 42.1 % (42.0-52.0); Hemoglobin 13.5 g/dL (14.1-18.0); Lymphocytes # 0.7 K/mm3 (0.7-4.5); Mean Corpuscular HGB Conc 32.1 g/dL (31.8-35.4); Mean Corpuscular Volume 102.6 fl (80-94); Mean Platelet Volume 9.3 fl (7.4-10.4); Monocytes # 0.3 K/mm3 (0.1-1.0); Monocytes % 5.2 % (1.7-9.3); Neutrophils # 4.6 K/mm3 (1.8-7.8); Neutrophils % 76.8 % (37.0-80.0); Platelet Count 192 K/mm3 (142-424); Red Blood Count 4.11 M/mm3 (4.60-6.20); Red Cell Distribution Width 15.2 % (11.5-17.5)
[2019-07-07 09:32] LABS: Chloride 103 mmol/L (98-107)
[2019-07-07 09:33] LABS: Potassium 3.9 mmoL/L (3.5-5.1); Sodium 141 mmol/L (136-145)
[2019-07-07 09:35] LABS: Alanine Aminotransferase 10 U/L (12-78); Alkaline Phosphatase 53 U/L (38-126); Aspartate Amino Transferase 18 U/L (17-59); Bilirubin,Total 0.7 mg/dl (0.2-1.3); Blood Urea Nitrogen 17 mg/dl (9-20); Creatinine Clearance Estimated 85 mL/min (50-200); Estimated Glomerular Filt Rate 59 ml/min (>60); GFR (African American) 71 ML/MIN (>60)
[2019-07-07 09:36] LABS: Albumin Level 3.6 g/dl (3.5-5.0); Albumin/Globulin Ratio 1.6 (1.1-1.8); Anion Gap 9.9 mEq/L (5-15); Calcium 9.3 mg/dl (8.4-10.2); Carbon Dioxide 32 mmol/L (22.0-30.0); Globulin 2.2 g/dL (1.3-3.2); Glucose 92 mg/dl (74-100); Total Protein,Serum 5.8 g/dl (6.3-8.2)
[2019-07-07 10:50] VITALS: BP 147/75; PULSE 71; RESP 18; TEMP 36.6; O2SAT 94
[2019-07-08 16:04] LABS: Albumin 3.2 g/dL (2.9-4.4); Alpha-1-Globulin 0.2 g/dL (0.0-0.4); Alpha-2-Globulin 0.8 g/dL (0.4-1.0); Free Kappa Lt Chains 16.5 mg/L (3.3-19.4); Free Lambda Lt Chains 5.4 mg/L (5.7-26.3); Gamma Globulin 0.5 g/dL (0.4-1.8); Immunoglobulin G, Qn 558 mg/dL (700-1600); Protein, Total 5.4 g/dL (6.0-8.5)
[2019-07-08 18:33] LABS: Immunoglobulin A, Qn 40 mg/dL (61-437); Immunoglobulin M, Qn 8 mg/dL (15-143)
== END 2019-07-07 11:05 | disposition home or self-care (01) ==
LOC: INF 09:05
PROVIDERS: Visit Provider Internal Medicine Medical Oncology
DX: C90.00 Multiple myeloma not having achieved remission (principal)
CPT/HCPCS: 36415; 80053; 82784; 83883; 84155; 84165; 85025; 86334; 96401; J9041

== ENCOUNTER 2019-07-14 09:00 | Outpatient (CLI) | payer MEDICARE, BC, SELFPAY ==
[2019-07-14 09:45] VITALS: BP 126/62; PULSE 72; RESP 18; TEMP 36.6; O2SAT 95
== END 2019-07-14 10:00 | disposition home or self-care (01) ==
LOC: INF 09:11
PROVIDERS: Visit Provider Internal Medicine Medical Oncology
DX: Z51.11 Encounter for antineoplastic chemotherapy (principal); C90.00 Multiple myeloma not having achieved remission
CPT/HCPCS: 96401; J9041

== ENCOUNTER 2019-07-21 08:45 | Outpatient (CLI) | payer MEDICARE, BC, SELFPAY ==
[2019-07-21 09:15] VITALS: BP 132/74; PULSE 76; RESP 18; TEMP 36.5; O2SAT 94
== END 2019-07-21 09:30 | disposition home or self-care (01) ==
LOC: INF 08:52
PROVIDERS: Visit Provider Internal Medicine Medical Oncology
DX: C90.00 Multiple myeloma not having achieved remission (principal); Z51.11 Encounter for antineoplastic chemotherapy
CPT/HCPCS: 96401; J9041

== ENCOUNTER 2019-08-11 08:54 | Outpatient (CLI) | payer MEDICARE, BC, SELFPAY ==
[2019-08-11 08:54] VITALS: BMI 34.4
[2019-08-11 10:03] LABS: Chloride 107 mmol/L (98-107); Potassium 3.7 mmoL/L (3.5-5.1); Sodium 140 mmol/L (136-145)
[2019-08-11 10:04] LABS: Basophils # 0.1 K/mm3 (0-0.2); Basophils % 0.9 % (0.1-2.0); Eosinophils # 0.5 K/mm3 (0.0-0.4); Eosinophils % 5.9 % (0.1-12.0); Hematocrit 40.7 % (42.0-52.0); Hemoglobin 13.7 g/dL (14.1-18.0); Lymphocytes # 0.9 K/mm3 (0.7-4.5); Lymphocytes % 11.3 % (10-50); Mean Corpuscular HGB Conc 33.8 g/dL (31.8-35.4); Mean Corpuscular Hemoglobin 32.9 pg (27.0-31.2); Mean Corpuscular Volume 97.5 fl (80-94); Mean Platelet Volume 7.6 fl (7.4-10.4); Monocytes # 0.6 K/mm3 (0.1-1.0); Monocytes % 7.2 % (1.7-9.3); Neutrophils % 74.7 % (37.0-80.0); Platelet Count 177 K/mm3 (142-424); Red Blood Count 4.18 M/mm3 (4.60-6.20); Red Cell Distribution Width 14.4 % (11.5-17.5); White Blood Count 8.1 K/mm3 (4.8-10.8)
[2019-08-11 10:06] LABS: Alanine Aminotransferase 13 U/L (12-78); Albumin Level 3.5 g/dl (3.5-5.0); Albumin/Globulin Ratio 1.5 (1.1-1.8); Alkaline Phosphatase 63 U/L (38-126); Anion Gap 7.7 mEq/L (5-15); Aspartate Amino Transferase 23 U/L (17-59); Bilirubin,Total 0.8 mg/dl (0.2-1.3); Blood Urea Nitrogen 17 mg/dl (9-20); Calcium 9.2 mg/dl (8.4-10.2); Carbon Dioxide 29 mmol/L (22.0-30.0); Creatinine Clearance Estimated 102 mL/min (50-200); Estimated Glomerular Filt Rate 73 ml/min (>60); GFR (African American) 88 ML/MIN (>60); Globulin 2.4 g/dL (1.3-3.2); Glucose 98 mg/dl (74-100); Total Protein,Serum 5.9 g/dl (6.3-8.2)
[2019-08-11 10:58] VITALS: BP 107/71; PULSE 78; RESP 18; TEMP 36.6; O2SAT 98
[2019-08-12 13:35] LABS: Albumin 3.2 g/dL (2.9-4.4); Alpha-1-Globulin 0.3 g/dL (0.0-0.4); Alpha-2-Globulin 0.8 g/dL (0.4-1.0); Gamma Globulin 0.6 g/dL (0.4-1.8); Protein, Total 5.6 g/dL (6.0-8.5)
[2019-08-12 14:17] LABS: Immunoglobulin A, Qn 51 mg/dL (61-437); Immunoglobulin G, Qn 555 mg/dL (603-1613); Immunoglobulin M, Qn 14 mg/dL (15-143)
[2019-08-12 14:31] LABS: Free Kappa Lt Chains 10.1 mg/L (3.3-19.4); Free Lambda Lt Chains 9.6 mg/L (5.7-26.3)
== END 2019-08-11 11:10 | disposition home or self-care (01) ==
LOC: INF 08:54
PROVIDERS: Visit Provider Internal Medicine Medical Oncology
DX: Z51.11 Encounter for antineoplastic chemotherapy (principal); C90.00 Multiple myeloma not having achieved remission
CPT/HCPCS: 80053; 82784; 83883; 84155; 84165; 85025; 86334; 96401; J9041

== ENCOUNTER 2019-08-25 09:02 | Outpatient (CLI) | payer MEDICARE, BC, SELFPAY ==
[2019-08-25 09:20] VITALS: BP 133/71; PULSE 82; RESP 18; TEMP 36.7; O2SAT 97
== END 2019-08-25 09:20 | disposition home or self-care (01) ==
LOC: INF 09:02
PROVIDERS: Visit Provider Internal Medicine Medical Oncology
DX: C90.00 Multiple myeloma not having achieved remission (principal)
CPT/HCPCS: 96401; J9041

== ENCOUNTER 2019-08-29 13:48 | Day surgery (SDC) | payer MEDICARE, BC, SELFPAY ==
[2019-08-29 14:20] VITALS: BP 140/82; PULSE 81; RESP 20; TEMP 36.7; O2SAT 96; BMI 32.1
[2019-08-29 14:25] VITALS: BP 140/88; PULSE 80; RESP 20; O2SAT 96
[2019-08-29 14:28] VITALS: BP 144/79; PULSE 88; RESP 20; O2SAT 95
--- NOTE | 2019-08-29 14:29 | P.PCN_ITS ---
- Procedure Date: 08/29/19 Time: 14:30 Anesthesiologist:: Holli Riley APRN Complications:: None Pre-procedure Diagnosis:: Multiple myeloma Post-procedure Diagnosis:: Same Indications for Procedure:: Patient is a pleasant 74-year-old white male who presents today for intrathecal pain pump refill and reprogram. He is rating his pain a 0 out of 10 he is on a bupivacaine pump of 2.5 mg/day. He denies any side effects. [facility] #[id number] reviewed and appropriate. Patient is not on any narcotic medications. Physical Exam General: Alert and oriented x3, no acute distress, pleasant and cooperative, [on room air] Lungs: Resps E/U, Symmetrical chest expansion, Eyes: PERRL Musculoskeletal: Flexion and extension of lumbar spine somewhat guarded secondary to pain, deep tendon reflexes normal, strength in upper and lower extremities [5/5], slightly antalgic gait noted Neurological: speech clear, flight deck officer equal, no gross sensory deficits Procedure Details:: Informed consent was obtained and the risk and benefits of the procedure were explained to the patient. The patient was taken to the procedure room where noninvasive monitoring was placed including noninvasive blood pressure cuff and pulse oximeter. Patient's pump was interrogated. The area over the pump was cleansed with chlorhexidine as a cleansing solution. In sterile fashion the pump was accessed with a 22-gauge needle. Approximately 9 mL's were removed of the pump solution and discarded appropriately. The pump was then refilled with 20 mL's of bupivacaine 20 mg/mL. The needle was withdrawn and a bandage was placed over the puncture site. The infusion rate was reprogrammed to continue at 2.5 mg per. The patient tolerated the procedure well. Plan and Disposition:: I will see the patient at his next intrathecal pain pump refill and reprogram. He is been instructed to call the office if he has any issues prior to his next appointment. We specifically discussed risk factors for Covid-19 including age, heart or lung disease, diabetes, immunosuppression and travel. We also discussed that NSAIDs may worsen Covid-19 infection symptoms and that they should not be used to treat Covid-19 symptoms. Patient was also informed that corticosteroids in any form oral or injectable will decrease immune response and may increase risk of Covid-[address] Queen has reviewed this patient's chart and this note and agrees with plan of care. Patient has been instructed to call the office if they have any issues prior to the next appointment. Dr. Queen has reviewed this note and agrees with this plan of care. This note was dictated using voice recognition software and may contain errors or omissions
[2019-08-29 14:36] VITALS: BP 140/86; PULSE 82; RESP 20; O2SAT 95
== END 2019-08-29 14:47 | disposition home or self-care (01) ==
LOC: SC.PAINP 13:49
PROVIDERS: PCP Internal Medicine Adolescent Medicine; Visit Provider Clinical Nurse Specialist Family Health
DX: C90.00 Multiple myeloma not having achieved remission (principal)
CPT/HCPCS: 95991

== ENCOUNTER 2019-09-09 08:47 | Outpatient (CLI) | payer MEDICARE, BC, SELFPAY ==
[2019-09-09 08:47] VITALS: BMI 33.3
[2019-09-09 09:17] LABS: Basophils # 0.1 K/mm3 (0-0.2); Basophils % 1.1 % (0.1-2.0); Eosinophils # 0.5 K/mm3 (0.0-0.4); Eosinophils % 5.3 % (0.1-12.0); Hematocrit 40.8 % (42.0-52.0); Hemoglobin 13.7 g/dL (14.1-18.0); Lymphocytes # 0.9 K/mm3 (0.7-4.5); Lymphocytes % 9.8 % (10-50); Mean Corpuscular HGB Conc 33.5 g/dL (31.8-35.4); Mean Corpuscular Hemoglobin 33.5 pg (27.0-31.2); Mean Platelet Volume 8.5 fl (7.4-10.4); Monocytes # 0.6 K/mm3 (0.1-1.0); Neutrophils # 6.7 K/mm3 (1.8-7.8); Neutrophils % 76.8 % (37.0-80.0); Platelet Count 214 K/mm3 (142-424); Red Blood Count 4.08 M/mm3 (4.60-6.20); Red Cell Distribution Width 14.1 % (11.5-17.5); White Blood Count 8.7 K/mm3 (4.8-10.8)
[2019-09-09 09:27] LABS: Alanine Aminotransferase 12 U/L (12-78); Albumin Level 3.6 g/dl (3.5-5.0); Albumin/Globulin Ratio 1.5 (1.1-1.8); Alkaline Phosphatase 67 U/L (38-126); Anion Gap 8.1 mEq/L (5-15); Aspartate Amino Transferase 22 U/L (17-59); Bilirubin,Total 0.4 mg/dl (0.2-1.3); Blood Urea Nitrogen 23 mg/dl (9-20); Calcium 9.4 mg/dl (8.4-10.2); Carbon Dioxide 30 mmol/L (22.0-30.0); Chloride 105 mmol/L (98-107); Creatinine Clearance Estimated 99 mL/min (50-200); Estimated Glomerular Filt Rate 73 ml/min (>60); GFR (African American) 88 ML/MIN (>60); Globulin 2.4 g/dL (1.3-3.2); Glucose 100 mg/dl (74-100); Potassium 4.1 mmoL/L (3.5-5.1); Sodium 139 mmol/L (136-145)
[2019-09-09 10:45] VITALS: BP 130/73; PULSE 84; RESP 20; TEMP 36.7; O2SAT 98
[2019-09-10 21:05] LABS: Free Kappa Lt Chains 15.9 mg/L (3.3-19.4); Free Lambda Lt Chains 9.6 mg/L (5.7-26.3)
[2019-09-12 13:23] LABS: Immunoglobulin G, Qn 561 mg/dL (603-1613)
[2019-09-12 16:27] LABS: Immunoglobulin A, Qn 51 mg/dL (61-437); Immunoglobulin M, Qn 18 mg/dL (15-143)
[2019-09-12 19:00] LABS: Alpha-1-Globulin 0.2 g/dL (0.0-0.4); Alpha-2-Globulin 0.8 g/dL (0.4-1.0); Gamma Globulin 0.5 g/dL (0.4-1.8); Protein, Total 5.4 g/dL (6.0-8.5)
== END 2019-09-09 10:45 | disposition home or self-care (01) ==
LOC: INF 08:47
PROVIDERS: Visit Provider Internal Medicine Medical Oncology
DX: C90.00 Multiple myeloma not having achieved remission (principal)
CPT/HCPCS: 80053; 82784; 83883; 84155; 84165; 85025; 86334; 96401; J9041

== ENCOUNTER 2019-09-15 08:35 | Outpatient (CLI) | payer MEDICARE, BC, SELFPAY ==
[2019-09-15 09:30] VITALS: BP 119/73; PULSE 83; RESP 18; TEMP 37.1; O2SAT 95
== END 2019-09-15 09:45 | disposition home or self-care (01) ==
LOC: INF 08:42
PROVIDERS: Visit Provider Internal Medicine Medical Oncology
DX: C90.00 Multiple myeloma not having achieved remission (principal)
CPT/HCPCS: 96401; J9041

== ENCOUNTER 2019-09-22 08:44 | Outpatient (CLI) | payer MEDICARE, BC, SELFPAY ==
[2019-09-22 09:00] VITALS: BP 103/61; PULSE 77; RESP 18; TEMP 36.8; O2SAT 97
== END 2019-09-22 09:15 | disposition home or self-care (01) ==
LOC: INF 08:44
PROVIDERS: Visit Provider Internal Medicine Medical Oncology
DX: C90.00 Multiple myeloma not having achieved remission (principal)
CPT/HCPCS: 96401; J9041

== ENCOUNTER 2019-10-07 09:08 | Outpatient (CLI) | payer MEDICARE, BC, SELFPAY ==
[2019-10-07 09:09] VITALS: BMI 32.3
[2019-10-07 09:47] LABS: Basophils # 0.1 K/mm3 (0-0.2); Basophils % 1.4 % (0.1-2.0); Eosinophils # 0.5 K/mm3 (0.0-0.4); Eosinophils % 5.4 % (0.1-12.0); Hematocrit 42.1 % (42.0-52.0); Hemoglobin 14.2 g/dL (14.1-18.0); Lymphocytes # 0.9 K/mm3 (0.7-4.5); Lymphocytes % 10.2 % (10-50); Mean Corpuscular HGB Conc 33.7 g/dL (31.8-35.4); Mean Corpuscular Hemoglobin 33.6 pg (27.0-31.2); Mean Corpuscular Volume 99.6 fl (80-94); Mean Platelet Volume 7.7 fl (7.4-10.4); Monocytes # 0.5 K/mm3 (0.1-1.0); Monocytes % 5.7 % (1.7-9.3); Neutrophils # 6.5 K/mm3 (1.8-7.8); Neutrophils % 77.4 % (37.0-80.0); Platelet Count 213 K/mm3 (142-424); Red Blood Count 4.23 M/mm3 (4.60-6.20); Red Cell Distribution Width 14.2 % (11.5-17.5); White Blood Count 8.4 K/mm3 (4.8-10.8)
[2019-10-07 09:55] LABS: Alanine Aminotransferase 13 U/L (12-78); Albumin Level 3.8 g/dl (3.5-5.0); Albumin/Globulin Ratio 1.5 (1.1-1.8); Alkaline Phosphatase 60 U/L (38-126); Anion Gap 9.9 mEq/L (5-15); Aspartate Amino Transferase 19 U/L (17-59); Blood Urea Nitrogen 19 mg/dl (9-20); Calcium 9.2 mg/dl (8.4-10.2); Carbon Dioxide 28 mmol/L (22.0-30.0); Chloride 105 mmol/L (98-107); Creatinine Clearance Estimated 82 mL/min (50-200); Estimated Glomerular Filt Rate 59 ml/min (>60); GFR (African American) 71 ML/MIN (>60); Globulin 2.6 g/dL (1.3-3.2); Glucose 127 mg/dl (74-100); Potassium 3.9 mmoL/L (3.5-5.1); Sodium 139 mmol/L (136-145); Total Protein,Serum 6.4 g/dl (6.3-8.2)
--- NOTE | 2019-10-07 10:39 | PC.NURSE ---
0930-BLOOD DRAWN WITH BUTTERFLY NEEDLE TO CHECK LABS PRIOR TO ONCOLOGY APPT. PT TO RETURN AFTER APPT FOR VELCADE.
[2019-10-07 10:45] VITALS: BP 116/68; PULSE 80; RESP 16; TEMP 36.6
[2019-10-08 14:11] LABS: Free Kappa Lt Chains 17.8 mg/L (3.3-19.4); Free Lambda Lt Chains 11.5 mg/L (5.7-26.3)
[2019-10-10 15:09] LABS: Immunoglobulin A, Qn 63 mg/dL (61-437); Immunoglobulin G, Qn 601 mg/dL (603-1613)
[2019-10-10 17:09] LABS: Alpha-1-Globulin 0.2 g/dL (0.0-0.4); Alpha-2-Globulin 0.8 g/dL (0.4-1.0); Gamma Globulin 0.6 g/dL (0.4-1.8); Protein, Total 5.4 g/dL (6.0-8.5)
[2019-10-11 02:32] LABS: Immunoglobulin M, Qn 19 mg/dL (15-143)
== END 2019-10-07 10:55 | disposition home or self-care (01) ==
LOC: INF 09:08
PROVIDERS: Visit Provider Internal Medicine Medical Oncology
DX: C90.00 Multiple myeloma not having achieved remission (principal); Z51.11 Encounter for antineoplastic chemotherapy
CPT/HCPCS: 80053; 82784; 83883; 84155; 84165; 85025; 86334; 96401; J9041

== ENCOUNTER 2019-10-13 09:06 | Outpatient (CLI) | payer MEDICARE, BC, SELFPAY ==
[2019-10-13 09:40] VITALS: BP 141/84; PULSE 82; RESP 18; TEMP 36.7; O2SAT 94
== END 2019-10-13 09:40 | disposition home or self-care (01) ==
LOC: INF 09:06
PROVIDERS: Visit Provider Internal Medicine Medical Oncology
DX: C90.00 Multiple myeloma not having achieved remission (principal)
CPT/HCPCS: 96401; J9041

== ENCOUNTER 2019-10-20 09:05 | Outpatient (CLI) | payer MEDICARE, BC, SELFPAY ==
[2019-10-20 09:25] VITALS: BP 108/58; PULSE 81; RESP 18; TEMP 36.7; O2SAT 94
== END 2019-10-20 09:32 | disposition home or self-care (01) ==
LOC: INF 09:13
PROVIDERS: Visit Provider Internal Medicine Medical Oncology
DX: C90.00 Multiple myeloma not having achieved remission (principal)
CPT/HCPCS: 96401; J9041

== ENCOUNTER 2019-11-03 08:45 | Outpatient (CLI) | payer MEDICARE, BC, SELFPAY ==
[2019-11-03 08:51] VITALS: BMI 34.8
[2019-11-03 09:31] LABS: Chloride 106 mmol/L (98-107); Sodium 138 mmol/L (136-145)
[2019-11-03 09:32] LABS: Potassium 3.6 mmoL/L (3.5-5.1)
[2019-11-03 09:34] LABS: Alanine Aminotransferase 14 U/L (12-78); Alkaline Phosphatase 54 U/L (38-126); Anion Gap 8.6 mEq/L (5-15); Aspartate Amino Transferase 17 U/L (17-59); Bilirubin,Total 1.5 mg/dl (0.2-1.3); Blood Urea Nitrogen 15 mg/dl (9-20); Carbon Dioxide 27 mmol/L (22.0-30.0); Creatinine Clearance Estimated 94 mL/min (50-200); Estimated Glomerular Filt Rate 65 ml/min (>60); GFR (African American) 79 ML/MIN (>60)
[2019-11-03 09:35] LABS: Albumin Level 3.3 g/dl (3.5-5.0); Albumin/Globulin Ratio 1.3 (1.1-1.8); Calcium 8.6 mg/dl (8.4-10.2); Globulin 2.6 g/dL (1.3-3.2); Glucose 168 mg/dl (74-100); Total Protein,Serum 5.9 g/dl (6.3-8.2)
[2019-11-03 09:53] LABS: Basophils % 0.3 % (0.1-2.0); Eosinophils # 0.2 K/mm3 (0.0-0.4); Eosinophils % 1.4 % (0.1-12.0); Hematocrit 41.9 % (42.0-52.0); Hemoglobin 13.7 g/dL (14.1-18.0); Lymphocytes # 0.9 K/mm3 (0.7-4.5); Mean Corpuscular HGB Conc 32.8 g/dL (31.8-35.4); Mean Corpuscular Hemoglobin 32.5 pg (27.0-31.2); Mean Platelet Volume 7.4 fl (7.4-10.4); Monocytes # 0.8 K/mm3 (0.1-1.0); Monocytes % 5.5 % (1.7-9.3); Neutrophils # 12.9 K/mm3 (1.8-7.8); Neutrophils % 86.8 % (37.0-80.0); Platelet Count 210 K/mm3 (142-424); Red Blood Count 4.23 M/mm3 (4.60-6.20); Red Cell Distribution Width 13.7 % (11.5-17.5); White Blood Count 14.8 K/mm3 (4.8-10.8)
[2019-11-03 09:55] LABS: MANUAL DIFFERENTIAL MANUAL DIFFERENTIAL (MANUAL DIFF)
[2019-11-03 10:39] LABS: Lymphocytes % 4 % (10-50); Monocytes % 4 % (2-9); Neutrophils % 92 % (42-76); Platelet Estimate Normal; Total Cells Counted 100
[2019-11-03 10:40] LABS: RBC Morphology Normal
[2019-11-03 10:45] VITALS: BP 117/65; PULSE 87; RESP 18; TEMP 36.6; O2SAT 93
[2019-11-04 15:09] LABS: Immunoglobulin A, Qn 77 mg/dL (61-437); Immunoglobulin G, Qn 581 mg/dL (603-1613)
[2019-11-04 15:13] LABS: Immunoglobulin M, Qn 27 mg/dL (15-143)
[2019-11-04 16:12] LABS: Albumin 2.7 g/dL (2.9-4.4); Alpha-1-Globulin 0.4 g/dL (0.0-0.4); Alpha-2-Globulin 0.9 g/dL (0.4-1.0); Gamma Globulin 0.5 g/dL (0.4-1.8); Protein, Total 5.3 g/dL (6.0-8.5)
[2019-11-04 17:09] LABS: Free Kappa Lt Chains 22.2 mg/L (3.3-19.4); Free Lambda Lt Chains 12.8 mg/L (5.7-26.3)
== END 2019-11-03 10:57 | disposition home or self-care (01) ==
LOC: INF 08:49
PROVIDERS: Visit Provider Internal Medicine Medical Oncology
DX: Z51.11 Encounter for antineoplastic chemotherapy (principal); C90.00 Multiple myeloma not having achieved remission
CPT/HCPCS: 80053; 82784; 83883; 84155; 84165; 85007; 85025; 86334; 96401; J9041

== ENCOUNTER 2019-11-10 09:00 | Outpatient (CLI) | payer MEDICARE, BC, SELFPAY ==
[2019-11-10 09:30] VITALS: BP 115/70; PULSE 82; RESP 18; TEMP 37; O2SAT 93
== END 2019-11-10 09:45 | disposition home or self-care (01) ==
LOC: INF 09:12
PROVIDERS: Visit Provider Internal Medicine Medical Oncology
DX: C90.00 Multiple myeloma not having achieved remission (principal)
CPT/HCPCS: 96401; J9041

== ENCOUNTER 2019-11-17 08:55 | Outpatient (CLI) | payer MEDICARE, BC, SELFPAY ==
[2019-11-17 09:25] VITALS: BP 110/63; PULSE 91; RESP 18; TEMP 36.8; O2SAT 94
== END 2019-11-17 09:40 | disposition home or self-care (01) ==
LOC: INF 08:56
PROVIDERS: Visit Provider Internal Medicine Medical Oncology
DX: Z51.11 Encounter for antineoplastic chemotherapy (principal); C90.00 Multiple myeloma not having achieved remission
CPT/HCPCS: 96401; J9041

== ENCOUNTER 2019-11-21 14:22 | Day surgery (SDC) | payer MEDICARE, BC, SELFPAY ==
[2019-11-21 14:36] VITALS: BP 145/79; BP 148/95; PULSE 87; PULSE 89; RESP 20; TEMP 36.4; O2SAT 95; BMI 33.5
[2019-11-21 14:53] VITALS: BP 152/85; PULSE 94; RESP 18; O2SAT 95
[2019-11-21 14:54] VITALS: BP 148/89; PULSE 85; RESP 18; O2SAT 97
--- NOTE | 2019-11-21 14:59 | HMH.PMPROC ---
- Procedure Date: 11/21/19 Time: 14:59 Anesthesiologist:: Holli Riley APRN Complications:: None Pre-procedure Diagnosis:: Multiple myeloma Post-procedure Diagnosis:: Same Indications for Procedure:: Patient is a pleasant 74-year-old white male who presents today for intrathecal pain pump refill and reprogram he is rating his pain today 0 out of 10. He is currently on a bupivacaine pump of 2.5 mg a day. He denies side effects Hector reviewed and appropriate. Patient's not on any narcotic medications. Physical Exam General: Alert and oriented x3, no acute distress, pleasant and cooperative, [on room air] Lungs: Resps E/U, Symmetrical chest expansion, Eyes: PERRL Musculoskeletal: Flexion and extension of lumbar spine somewhat guarded secondary to pain, deep tendon reflexes normal, strength in upper and lower extremities [5/5], [abnormal gait noted] Neurological: speech clear, sales representative sales manager equal, no gross sensory deficits Procedure Details:: Informed consent was obtained and the risk and benefits of the procedure were explained to the patient. The patient was taken to the procedure room where noninvasive monitoring was placed including noninvasive blood pressure cuff and pulse oximeter. Patient's pump was interrogated. The area over the pump was cleansed with chlorhexidine as a cleansing solution. In sterile fashion the pump was accessed with a 22-gauge needle. Approximately 5 mL's were removed of the pump solution and discarded appropriately. The pump was then refilled with 20 mL's of bupivacaine 20 mg/mL. The needle was withdrawn and a bandage was placed over the puncture site. The infusion rate was reprogrammed to continue at 2.5 mg/day. The patient tolerated the procedure well. Plan and Disposition:: We will follow-up the patient in the next intrathecal pain pump refill and reprogram he has been instructed to call the office if he has any issues prior to his next appointment. Dr. Queen has reviewed this note and agrees with this plan of care. This note was dictated using voice recognition software and may contain errors or omissions
== END 2019-11-21 15:06 | disposition home or self-care (01) ==
LOC: SC.PAINP 14:23
PROVIDERS: PCP Internal Medicine Adolescent Medicine; Visit Provider Clinical Nurse Specialist Family Health
DX: C90.00 Multiple myeloma not having achieved remission
CPT/HCPCS: 95991

== ENCOUNTER 2019-12-01 09:12 | Outpatient (CLI) | payer MEDICARE, BC, SELFPAY ==
[2019-12-01 09:18] VITALS: BMI 34.0
[2019-12-01 09:41] LABS: Basophils # 0.1 K/mm3 (0-0.2); Basophils % 0.7 % (0.1-2.0); Eosinophils # 0.3 K/mm3 (0.0-0.4); Eosinophils % 3.3 % (0.1-12.0); Hematocrit 39.9 % (42.0-52.0); Hemoglobin 13.4 g/dL (14.1-18.0); Lymphocytes % 11.5 % (10-50); Mean Corpuscular HGB Conc 33.5 g/dL (31.8-35.4); Mean Corpuscular Hemoglobin 31.4 pg (27.0-31.2); Mean Corpuscular Volume 93.8 fl (80-94); Mean Platelet Volume 7.9 fl (7.4-10.4); Monocytes # 0.4 K/mm3 (0.1-1.0); Monocytes % 4.9 % (1.7-9.3); Neutrophils % 79.6 % (37.0-80.0); Platelet Count 321 K/mm3 (142-424); Red Blood Count 4.26 M/mm3 (4.60-6.20); Red Cell Distribution Width 14.4 % (11.5-17.5); White Blood Count 8.8 K/mm3 (4.8-10.8)
[2019-12-01 09:47] LABS: Chloride 103 mmol/L (98-107); Potassium 3.8 mmoL/L (3.5-5.1); Sodium 140 mmol/L (136-145)
[2019-12-01 09:50] LABS: Alanine Aminotransferase 14 U/L (12-78); Albumin Level 3.1 g/dl (3.5-5.0); Albumin/Globulin Ratio 1.1 (1.1-1.8); Alkaline Phosphatase 61 U/L (38-126); Anion Gap 8.8 mEq/L (5-15); Aspartate Amino Transferase 20 U/L (17-59); Bilirubin,Total 0.5 mg/dl (0.2-1.3); Blood Urea Nitrogen 14 mg/dl (9-20); Carbon Dioxide 32 mmol/L (22.0-30.0); Creatinine Clearance Estimated 104 mL/min (50-200); Estimated Glomerular Filt Rate 73 ml/min (>60); GFR (African American) 88 ML/MIN (>60); Globulin 2.7 g/dL (1.3-3.2); Glucose 102 mg/dl (74-100); Total Protein,Serum 5.8 g/dl (6.3-8.2)
[2019-12-01 10:45] VITALS: BP 116/68; PULSE 74; RESP 18; TEMP 36.6
[2019-12-01 11:00] VITALS: BP 116/68; PULSE 74; RESP 18; TEMP 36.6
[2019-12-02 16:10] LABS: Free Kappa Lt Chains 25.5 mg/L (3.3-19.4); Free Lambda Lt Chains 17.3 mg/L (5.7-26.3)
[2019-12-02 16:12] LABS: Albumin 2.8 g/dL (2.9-4.4); Alpha-1-Globulin 0.3 g/dL (0.0-0.4); Alpha-2-Globulin 0.9 g/dL (0.4-1.0); Gamma Globulin 0.7 g/dL (0.4-1.8); Protein, Total 5.5 g/dL (6.0-8.5)
[2019-12-05 13:16] LABS: Immunoglobulin A, Qn 152 mg/dL (61-437); Immunoglobulin G, Qn 740 mg/dL (603-1613)
[2019-12-06 05:38] LABS: Immunoglobulin M, Qn 39 mg/dL (15-143)
== END 2019-12-01 11:00 | disposition home or self-care (01) ==
LOC: INF 09:16
PROVIDERS: Visit Provider Internal Medicine Medical Oncology
DX: Z51.11 Encounter for antineoplastic chemotherapy (principal); C90.00 Multiple myeloma not having achieved remission
CPT/HCPCS: 36415; 80053; 82784; 83883; 84155; 84165; 85025; 86334; 96401; J9041

== ENCOUNTER 2019-12-08 09:10 | Outpatient (CLI) | payer MEDICARE, BC, SELFPAY ==
[2019-12-08 09:10] VITALS: BP 107/55; PULSE 84; RESP 20; TEMP 36.9; O2SAT 95
== END 2019-12-08 09:30 | disposition home or self-care (01) ==
LOC: INF 09:22
PROVIDERS: Visit Provider Internal Medicine Medical Oncology
DX: Z51.11 Encounter for antineoplastic chemotherapy (principal); C90.00 Multiple myeloma not having achieved remission
CPT/HCPCS: 96401; J9041

== ENCOUNTER 2019-12-16 09:16 | Outpatient (CLI) | payer MEDICARE, BC, SELFPAY ==
[2019-12-16 09:40] VITALS: BP 113/60; PULSE 73; RESP 20; TEMP 36.9; O2SAT 95
[2019-12-16 10:00] VITALS: BP 107/77; PULSE 68; RESP 20; TEMP 36.9; O2SAT 95
== END 2019-12-16 09:55 | disposition home or self-care (01) ==
LOC: INF 09:17
PROVIDERS: Visit Provider Internal Medicine Medical Oncology
DX: Z51.11 Encounter for antineoplastic chemotherapy (principal); C90.00 Multiple myeloma not having achieved remission
CPT/HCPCS: 96401; 96409; J9041

== ENCOUNTER 2019-12-29 10:19 | Outpatient (CLI) | payer MEDICARE, BC, SELFPAY ==
[2019-12-29 10:20] VITALS: BMI 34.0
[2019-12-29 10:46] LABS: Basophils # 0.1 K/mm3 (0-0.2); Basophils % 0.8 % (0.1-2.0); Eosinophils # 0.3 K/mm3 (0.0-0.4); Eosinophils % 2.7 % (0.1-12.0); Hematocrit 43.3 % (42.0-52.0); Lymphocytes # 1.1 K/mm3 (0.7-4.5); Lymphocytes % 10.2 % (10-50); Mean Corpuscular HGB Conc 32.3 g/dL (31.8-35.4); Mean Corpuscular Hemoglobin 31.9 pg (27.0-31.2); Mean Corpuscular Volume 98.6 fl (80-94); Mean Platelet Volume 7.3 fl (7.4-10.4); Monocytes # 0.6 K/mm3 (0.1-1.0); Monocytes % 5.3 % (1.7-9.3); Neutrophils # 8.9 K/mm3 (1.8-7.8); Platelet Count 206 K/mm3 (142-424); Red Blood Count 4.39 M/mm3 (4.60-6.20); Red Cell Distribution Width 15.6 % (11.5-17.5)
[2019-12-29 10:51] LABS: Chloride 107 mmol/L (98-107); Sodium 141 mmol/L (136-145)
[2019-12-29 10:54] LABS: Alanine Aminotransferase 12 U/L (12-78); Albumin Level 3.5 g/dl (3.5-5.0); Albumin/Globulin Ratio 1.3 (1.1-1.8); Alkaline Phosphatase 70 U/L (38-126); Aspartate Amino Transferase 19 U/L (17-59); Bilirubin,Total 0.8 mg/dl (0.2-1.3); Blood Urea Nitrogen 14 mg/dl (9-20); Calcium 9.4 mg/dl (8.4-10.2); Carbon Dioxide 27 mmol/L (22.0-30.0); Creatinine Clearance Estimated 95 mL/min (50-200); Estimated Glomerular Filt Rate 65 ml/min (>60); GFR (African American) 79 ML/MIN (>60); Globulin 2.7 g/dL (1.3-3.2); Glucose 97 mg/dl (74-100); Total Protein,Serum 6.2 g/dl (6.3-8.2)
[2019-12-29 11:32] VITALS: BP 130/73; PULSE 73; RESP 18; TEMP 36.5; O2SAT 96
[2019-12-30 15:15] LABS: Free Kappa Lt Chains 22.6 mg/L (3.3-19.4); Free Lambda Lt Chains 15.5 mg/L (5.7-26.3); Immunoglobulin A, Qn 117 mg/dL (61-437); Immunoglobulin G, Qn 730 mg/dL (603-1613)
[2019-12-30 19:39] LABS: Albumin 3.1 g/dL (2.9-4.4); Alpha-1-Globulin 0.2 g/dL (0.0-0.4); Alpha-2-Globulin 0.8 g/dL (0.4-1.0); Gamma Globulin 0.7 g/dL (0.4-1.8); Protein, Total 5.7 g/dL (6.0-8.5)
[2019-12-31 10:16] LABS: Immunoglobulin M, Qn 37 mg/dL (15-143)
== END 2019-12-29 11:45 | disposition home or self-care (01) ==
LOC: INF 10:19
PROVIDERS: Visit Provider Internal Medicine Medical Oncology
DX: Z51.11 Encounter for antineoplastic chemotherapy (principal); C90.00 Multiple myeloma not having achieved remission
CPT/HCPCS: 36415; 80053; 82784; 83883; 84155; 84165; 85025; 86334; 96401; J9041

== ENCOUNTER 2020-01-05 09:05 | Outpatient (CLI) | payer MEDICARE, BC, SELFPAY ==
[2020-01-05 09:29] VITALS: BP 104/60; PULSE 76; RESP 18; TEMP 36.6; O2SAT 95
== END 2020-01-05 09:29 | disposition home or self-care (01) ==
LOC: INF 09:12
PROVIDERS: Visit Provider Internal Medicine Medical Oncology
DX: Z51.11 Encounter for antineoplastic chemotherapy (principal); C90.00 Multiple myeloma not having achieved remission
CPT/HCPCS: 96401; J9041

== ENCOUNTER 2020-01-12 09:15 | Outpatient (CLI) | payer MEDICARE, BC, SELFPAY ==
[2020-01-12 09:39] VITALS: BP 143/75; PULSE 79; RESP 18; TEMP 36.3; O2SAT 94
== END 2020-01-12 09:39 | disposition home or self-care (01) ==
LOC: INF 09:16
PROVIDERS: Visit Provider Internal Medicine Medical Oncology
DX: Z51.11 Encounter for antineoplastic chemotherapy (principal); C90.00 Multiple myeloma not having achieved remission
CPT/HCPCS: 96401; J9041

== ENCOUNTER 2020-01-26 08:59 | Outpatient (CLI) | payer MEDICARE, BC, SELFPAY ==
[2020-01-26 08:59] VITALS: BMI 34.8
[2020-01-26 09:36] LABS: Basophils # 0.1 K/mm3 (0-0.2); Basophils % 0.7 % (0.1-2.0); Eosinophils # 0.3 K/mm3 (0.0-0.4); Eosinophils % 3.9 % (0.1-12.0); Hematocrit 41.3 % (42.0-52.0); Hemoglobin 13.6 g/dL (14.1-18.0); Lymphocytes % 10.9 % (10-50); Mean Corpuscular HGB Conc 32.8 g/dL (31.8-35.4); Mean Corpuscular Hemoglobin 31.6 pg (27.0-31.2); Mean Corpuscular Volume 96.2 fl (80-94); Mean Platelet Volume 7.6 fl (7.4-10.4); Monocytes # 0.6 K/mm3 (0.1-1.0); Monocytes % 6.3 % (1.7-9.3); Neutrophils # 6.9 K/mm3 (1.8-7.8); Neutrophils % 78.2 % (37.0-80.0); Platelet Count 234 K/mm3 (142-424); Red Blood Count 4.29 M/mm3 (4.60-6.20); Red Cell Distribution Width 15.5 % (11.5-17.5); White Blood Count 8.8 K/mm3 (4.8-10.8)
[2020-01-26 09:44] LABS: Alanine Aminotransferase 8 U/L (12-78); Albumin Level 3.5 g/dl (3.5-5.0); Albumin/Globulin Ratio 1.3 (1.1-1.8); Alkaline Phosphatase 76 U/L (38-126); Anion Gap 7.7 mEq/L (5-15); Aspartate Amino Transferase 19 U/L (17-59); Bilirubin,Total 0.9 mg/dl (0.2-1.3); Blood Urea Nitrogen 9 mg/dl (9-20); Carbon Dioxide 32 mmol/L (22.0-30.0); Chloride 102 mmol/L (98-107); Creatinine Clearance Estimated 106 mL/min (50-200); Estimated Glomerular Filt Rate 73 ml/min (>60); GFR (African American) 88 ML/MIN (>60); Globulin 2.7 g/dL (1.3-3.2); Glucose 90 mg/dl (74-100); Potassium 3.7 mmoL/L (3.5-5.1); Sodium 138 mmol/L (136-145); Total Protein,Serum 6.2 g/dl (6.3-8.2)
[2020-01-26 10:20] VITALS: BP 149/71; PULSE 69; RESP 20; TEMP 36.6; O2SAT 99
[2020-01-27 14:50] LABS: Free Kappa Lt Chains 23.7 mg/L (3.3-19.4); Free Lambda Lt Chains 15.8 mg/L (5.7-26.3)
[2020-01-27 16:35] LABS: Immunoglobulin A, Qn 118 mg/dL (61-437); Immunoglobulin G, Qn 747 mg/dL (603-1613)
[2020-01-27 19:56] LABS: Albumin 2.8 g/dL (2.9-4.4); Alpha-1-Globulin 0.3 g/dL (0.0-0.4); Alpha-2-Globulin 0.9 g/dL (0.4-1.0); Gamma Globulin 0.7 g/dL (0.4-1.8); Protein, Total 5.5 g/dL (6.0-8.5)
[2020-01-28 18:17] LABS: Immunoglobulin M, Qn 29 mg/dL (15-143)
== END 2020-01-26 10:45 | disposition home or self-care (01) ==
LOC: INF 08:59
PROVIDERS: Visit Provider Internal Medicine Medical Oncology
DX: Z51.11 Encounter for antineoplastic chemotherapy (principal); C90.00 Multiple myeloma not having achieved remission
CPT/HCPCS: 80053; 82784; 83883; 84155; 84165; 85025; 86334; 96401; J9041

== ENCOUNTER 2020-02-02 08:52 | Outpatient (CLI) | payer MEDICARE, BC, SELFPAY ==
[2020-02-02 09:15] VITALS: BP 135/80; PULSE 85; RESP 18; TEMP 36.2
== END 2020-02-02 09:15 | disposition home or self-care (01) ==
LOC: INF 08:52
PROVIDERS: Visit Provider Internal Medicine Medical Oncology
DX: Z51.11 Encounter for antineoplastic chemotherapy (principal); C90.00 Multiple myeloma not having achieved remission
CPT/HCPCS: 96401; J9041

== ENCOUNTER 2020-02-09 08:45 | Outpatient (CLI) | payer MEDICARE, BC, SELFPAY ==
[2020-02-09 09:15] VITALS: BP 141/68; PULSE 64; RESP 18; TEMP 36.4; O2SAT 97
== END 2020-02-09 09:30 | disposition home or self-care (01) ==
LOC: INF 08:50
PROVIDERS: Visit Provider Internal Medicine Medical Oncology
DX: C90.00 Multiple myeloma not having achieved remission (principal); Z51.11 Encounter for antineoplastic chemotherapy
CPT/HCPCS: 96401; J9041

== ENCOUNTER 2020-02-13 13:49 | Day surgery (SDC) | payer MEDICARE, BC, SELFPAY ==
[2020-02-13 14:22] VITALS: BP 136/64; BP 137/70; PULSE 68; PULSE 74; RESP 20; TEMP 36.7; TEMP 37.1; O2SAT 95; O2SAT 96; BMI 33.0
[2020-02-13 14:40] VITALS: BP 132/85; PULSE 85; RESP 18; O2SAT 94
[2020-02-13 14:41] VITALS: BP 132/85; PULSE 76; RESP 18; O2SAT 98
--- NOTE | 2020-02-13 14:48 | HMH.PMPROC ---
- Procedure Date: 02/13/20 Time: 14:48 Anesthesiologist:: Shannan Barraza APRN Complications:: None Pre-procedure Diagnosis:: Degenerative disc disease lumbar spine with lumbar radiculopathy symptoms Post-procedure Diagnosis:: Same Indications for Procedure:: Patient is a pleasant 74-year-old white male who presents today for intrathecal pain pump refill and reprogram. He has been treated for chronic low back pain with lumbar radiculopathy symptoms. He rates his pain a 0 out of 10. He says he is doing well with his medication regimen. He is currently managed with bupivacaine at 2.5 mg/day. He denies any side effects to the medication. We will refill him today. Physical exam General: Alert and oriented x3, no acute distress, pleasant and cooperative, [on room air] Lungs: Respirations even and unlabored, symmetrical chest expansion Eyes: PERRL Musculoskeletal: Flexion and extension of lumbar spine somewhat guarded secondary to pain, deep tendon reflexes normal, strength in upper and lower extremities [5/5], [abnormal gait noted] Neurological: Speech clear, glass checker equal, no gross sensory deficit Procedure Details:: Informed consent was obtained and the risk and benefits of the procedure were explained to the patient. The patient was taken to the procedure room where noninvasive monitoring was placed including noninvasive blood pressure cuff and pulse oximeter. Patient's pump was interrogated. The area over the pump was cleansed with chlorhexidine as a cleansing solution. In sterile fashion the pump was accessed with a 22-gauge needle. Approximately 9.5 mls of the pump solution was removed and discarded appropriately. The pump was then refilled with 20 mL's of bupivacaine 20 mg/mL. The needle was withdrawn and a bandage was placed over the puncture site. The infusion rate was reprogrammed at 2.5 mg/day. The patient tolerated well with no complication. Plan and Disposition:: We will see the patient back at his next intrathecal pain pump refill and reprogram. He has been instructed to contact clinic if he has any concerns before his next appointment. The patient and I specifically discussed risk factors for COVID19. These risks include, but are not limited to age greater than 60, heart or lung disease, diabetes, immunosuppression, and travel. We also discussed NSAIDs may worsen COVID19 infection or symptoms. Patient should not use NSAIDs to treat COVID19 signs or symptoms. Patient was also informed that any type of corticosteroid of any form (oral or injection) will decrease the patient's immune system response and may increase the likelihood of COVID19 infection [address] symptoms[address]. Queen has reviewed this note and agrees with this plan of care. This note was dictated using voice recognition software and make contain errors or omissions.
== END 2020-02-13 15:02 | disposition home or self-care (01) ==
PROVIDERS: PCP Internal Medicine Adolescent Medicine; Visit Provider Clinical Nurse Specialist Family Health
DX: M51.16 Intervertebral disc disorders with radiculopathy, lumbar region (principal); I25.10 Atherosclerotic heart disease of native coronary artery without angina pectoris; E78.5 Hyperlipidemia, unspecified; I10 Essential (primary) hypertension; K21.9 Gastro-esophageal reflux disease without esophagitis; F32.9 Major depressive disorder, single episode, unspecified; F03.90 Unspecified dementia, unspecified severity, without behavioral disturbance, psychotic disturbance, mood disturbance, and anxiety; M80.00XA Age-related osteoporosis with current pathological fracture, unspecified site, initial encounter for fracture
CPT/HCPCS: 95991

== ENCOUNTER 2020-02-23 09:00 | Outpatient (CLI) | payer MEDICARE, BC, SELFPAY ==
[2020-02-23 09:03] VITALS: BMI 32.5
[2020-02-23 09:28] LABS: Basophils # 0.1 K/mm3 (0-0.2); Basophils % 0.6 % (0.1-2.0); Eosinophils # 0.4 K/mm3 (0.0-0.4); Eosinophils % 5.4 % (0.1-12.0); Hematocrit 41.6 % (42.0-52.0); Hemoglobin 12.7 g/dL (14.1-18.0); Lymphocytes # 0.9 K/mm3 (0.7-4.5); Lymphocytes % 11.9 % (10-50); Mean Corpuscular HGB Conc 30.6 g/dL (31.8-35.4); Mean Corpuscular Volume 98.1 fl (80-94); Mean Platelet Volume 7.8 fl (7.4-10.4); Monocytes # 0.5 K/mm3 (0.1-1.0); Monocytes % 7.3 % (1.7-9.3); Neutrophils # 5.4 K/mm3 (1.8-7.8); Neutrophils % 74.8 % (37.0-80.0); Platelet Count 234 K/mm3 (142-424); Red Blood Count 4.24 M/mm3 (4.60-6.20); Red Cell Distribution Width 15.1 % (11.5-17.5); White Blood Count 7.2 K/mm3 (4.8-10.8)
--- NOTE | 2020-02-23 09:49 | PC.NURSE ---
0915 - NICKI FROM LAB PRESENT TO DRAW LABS PRIOR TO ONCOLOGY APPT; PT DUE TO RETURN FOR VELCADE INJECTION AFTER APPT.
[2020-02-23 09:53] LABS: Chloride 104 mmol/L (98-107); Potassium 3.6 mmoL/L (3.5-5.1); Sodium 140 mmol/L (136-145)
[2020-02-23 09:56] LABS: Alanine Aminotransferase 10 U/L (12-78); Albumin Level 3.4 g/dl (3.5-5.0); Albumin/Globulin Ratio 1.3 (1.1-1.8); Alkaline Phosphatase 60 U/L (38-126); Anion Gap 10.6 mEq/L (5-15); Aspartate Amino Transferase 19 U/L (17-59); Bilirubin,Total 0.7 mg/dl (0.2-1.3); Blood Urea Nitrogen 12 mg/dl (9-20); Calcium 8.9 mg/dl (8.4-10.2); Carbon Dioxide 29 mmol/L (22.0-30.0); Creatinine Clearance Estimated 102 mL/min (50-200); Estimated Glomerular Filt Rate 73 ml/min (>60); GFR (African American) 88 ML/MIN (>60); Globulin 2.6 g/dL (1.3-3.2); Glucose 142 mg/dl (74-100)
--- NOTE | 2020-02-23 10:01 | PC.NURSE ---
0949-RECEIVED CALL FROM DR MORALES'S NURSE, NORMAN STATING THAT PT WAS NOT GOING TO START VELCADE CYCLE TODAY. PLAN TO RETURN TO DR MORALES ON 2019.
[2020-02-24 18:36] LABS: Albumin 2.9 g/dL (2.9-4.4); Alpha-1-Globulin 0.2 g/dL (0.0-0.4); Alpha-2-Globulin 0.9 g/dL (0.4-1.0); Free Lambda Lt Chains 15.9 mg/L (5.7-26.3); Gamma Globulin 0.7 g/dL (0.4-1.8); Immunoglobulin A, Qn 121 mg/dL (61-437); Immunoglobulin G, Qn 695 mg/dL (603-1613); Protein, Total 5.5 g/dL (6.0-8.5)
[2020-02-25 10:24] LABS: Immunoglobulin M, Qn 28 mg/dL (15-143)
== END 2020-02-23 09:25 | disposition home or self-care (01) ==
LOC: INF 09:01
PROVIDERS: Visit Provider Internal Medicine Medical Oncology
DX: C90.00 Multiple myeloma not having achieved remission (principal)
CPT/HCPCS: 36415; 80053; 82784; 83883; 84155; 84165; 85025; 86334

== ENCOUNTER 2020-03-22 09:15 | Outpatient (CLI) | payer MEDICARE, BC, SELFPAY ==
[2020-03-22 09:19] VITALS: BMI 32.5
--- NOTE | 2020-03-22 09:28 | PC.NURSE ---
0928-peripherally stuck pt for labs; pt to oncology appointment pt will return after for treatment
--- NOTE | 2020-03-22 09:30 | PC.NURSE ---
0930-pt not receiving treatment today is on hold may per .
[2020-03-22 09:43] LABS: Basophils # 0.1 K/mm3 (0-0.2); Basophils % 0.6 % (0.1-2.0); Eosinophils # 0.4 K/mm3 (0.0-0.4); Eosinophils % 4.1 % (0.1-12.0); Hematocrit 45.3 % (42.0-52.0); Lymphocytes # 1.1 K/mm3 (0.7-4.5); Lymphocytes % 11.3 % (10-50); Mean Corpuscular HGB Conc 30.8 g/dL (31.8-35.4); Mean Corpuscular Hemoglobin 29.7 pg (27.0-31.2); Mean Corpuscular Volume 96.4 fl (80-94); Mean Platelet Volume 7.3 fl (7.4-10.4); Monocytes # 0.7 K/mm3 (0.1-1.0); Monocytes % 7.1 % (1.7-9.3); Neutrophils # 7.3 K/mm3 (1.8-7.8); Neutrophils % 76.8 % (37.0-80.0); Platelet Count 215 K/mm3 (142-424); Red Blood Count 4.71 M/mm3 (4.60-6.20); Red Cell Distribution Width 14.8 % (11.5-17.5); White Blood Count 9.5 K/mm3 (4.8-10.8)
[2020-03-22 09:59] LABS: Chloride 106 mmol/L (98-107); Sodium 139 mmol/L (136-145)
[2020-03-22 10:00] LABS: Potassium 3.6 mmoL/L (3.5-5.1)
[2020-03-22 10:02] LABS: Alanine Aminotransferase 11 U/L (12-78); Albumin Level 3.6 g/dl (3.5-5.0); Albumin/Globulin Ratio 1.2 (1.1-1.8); Alkaline Phosphatase 64 U/L (38-126); Anion Gap 8.6 mEq/L (5-15); Aspartate Amino Transferase 21 U/L (17-59); Bilirubin,Total 0.9 mg/dl (0.2-1.3); Blood Urea Nitrogen 12 mg/dl (9-20); Calcium 9.2 mg/dl (8.4-10.2); Carbon Dioxide 28 mmol/L (22.0-30.0); Creatinine Clearance Estimated 102 mL/min (50-200); Estimated Glomerular Filt Rate 73 ml/min (>60); GFR (African American) 88 ML/MIN (>60); Globulin 2.9 g/dL (1.3-3.2); Glucose 99 mg/dl (74-100); Total Protein,Serum 6.5 g/dl (6.3-8.2)
[2020-03-23 16:12] LABS: Albumin 3.2 g/dL (2.9-4.4); Alpha-1-Globulin 0.2 g/dL (0.0-0.4); Alpha-2-Globulin 0.8 g/dL (0.4-1.0); Free Kappa Lt Chains 28.1 mg/L (3.3-19.4); Free Lambda Lt Chains 18.4 mg/L (5.7-26.3); Gamma Globulin 0.8 g/dL (0.4-1.8); Protein, Total 5.9 g/dL (6.0-8.5)
[2020-03-26 14:10] LABS: Immunoglobulin A, Qn 145 mg/dL (61-437); Immunoglobulin G, Qn 881 mg/dL (603-1613)
[2020-03-26 19:43] LABS: Immunoglobulin M, Qn 33 mg/dL (15-143)
== END 2020-03-22 09:30 | disposition home or self-care (01) ==
LOC: INF 09:18
PROVIDERS: Visit Provider Internal Medicine Medical Oncology
DX: C90.00 Multiple myeloma not having achieved remission (principal)
CPT/HCPCS: 80053; 82784; 83883; 84155; 84165; 85025; 86334

== ENCOUNTER 2020-05-14 13:33 | Day surgery (SDC) | payer MEDICARE, BC, SELFPAY ==
[2020-05-14 13:39] VITALS: BP 133/91; PULSE 90; RESP 20; TEMP 35.8; O2SAT 96; BMI 33.9
[2020-05-14 13:54] VITALS: BP 148/89; PULSE 85; RESP 18
--- NOTE | 2020-05-14 13:59 | P.PCN_ITS ---
- Procedure Date: 05/14/20 Time: 14:11 Anesthesiologist:: Holli Riley APRN Complications:: None Pre-procedure Diagnosis:: Degenerative disc disease lumbar spine lumbar radiculopathy symptoms Post-procedure Diagnosis:: Same Indications for Procedure:: Patient is a pleasant 75-year-old white male who presents today for intrathecal pain pump refill and reprogram. He is being treated for low back pain lumbar radiculopathy symptoms. He rates his pain a 0 out of 10. Overall doing well he is currently on a bupivacaine infusion of 2.5 mg/day. He denies side effects to his medication. [facility] #[id number] reviewed and appropriate. Physical Exam General: Alert and oriented x3, no acute distress, pleasant and cooperative, [on room air] Lungs: Resps E/U, Symmetrical chest expansion, Eyes: PERRL Musculoskeletal: Flexion and extension of lumbar spine somewhat guarded secondary to pain, deep tendon reflexes normal, strength in upper and lower extremities [5/5], [abnormal gait noted] Neurological: speech clear, directional survey drafter equal, no gross sensory deficits Procedure Details:: Informed consent was obtained and the risk and benefits of the procedure were explained to the patient. The patient was taken to the procedure room where noninvasive monitoring was placed including noninvasive blood pressure cuff and pulse oximeter. Patient's pump was interrogated. The area over the pump was cleansed with chlorhexidine as a cleansing solution. In sterile fashion the pump was accessed with a 22-gauge needle. Approximately 8.5 mL's were removed of the pump solution and discarded appropriately. The pump was then refilled with 20 mL's of bupivacaine 20 mg/mL. The needle was withdrawn and a bandage was placed over the puncture site. The infusion rate was reprogrammed to continued at 2.5 mg/day. The patient tolerated the procedure well. Plan and Disposition:: we will see the patient back at his next intrathecal pain pump refill and reprogram he has been instructed to call the office if he has any issues prior to his next appointment. Dr. Queen has reviewed this note and agrees with this plan of care. This note was dictated using voice recognition software and may contain errors or omissions
[2020-05-14 14:04] VITALS: BP 148/89; PULSE 85; RESP 18; O2SAT 97
[2020-05-14 14:25] VITALS: BP 133/82; PULSE 81; RESP 18; O2SAT 96
== END 2020-05-14 14:25 | disposition home or self-care (01) ==
LOC: SC.PAINP 13:36
PROVIDERS: PCP Internal Medicine Adolescent Medicine; Visit Provider Clinical Nurse Specialist Family Health
DX: M51.16 Intervertebral disc disorders with radiculopathy, lumbar region (principal); Z45.1 Encounter for adjustment and management of infusion pump; I25.10 Atherosclerotic heart disease of native coronary artery without angina pectoris; E78.5 Hyperlipidemia, unspecified; N40.0 Benign prostatic hyperplasia without lower urinary tract symptoms; F41.9 Anxiety disorder, unspecified; F32.9 Major depressive disorder, single episode, unspecified; F03.90 Unspecified dementia, unspecified severity, without behavioral disturbance, psychotic disturbance, mood disturbance, and anxiety; Z87.19 Personal history of other diseases of the digestive system; Z79.01 Long term (current) use of anticoagulants; Z85.828 Personal history of other malignant neoplasm of skin
CPT/HCPCS: 95991

== ENCOUNTER 2020-05-17 10:45 | Outpatient (CLI) | payer MEDICARE, BC, SELFPAY ==
[2020-05-17 10:47] VITALS: BMI 34.8
[2020-05-17 11:31] LABS: Basophils # 0.1 K/mm3 (0-0.2); Basophils % 0.5 % (0.1-2.0); Eosinophils # 0.3 K/mm3 (0.0-0.4); Eosinophils % 2.4 % (0.1-12.0); Hematocrit 46.9 % (42.0-52.0); Hemoglobin 14.3 g/dL (14.1-18.0); Lymphocytes % 7.9 % (10-50); Mean Corpuscular HGB Conc 30.6 g/dL (31.8-35.4); Mean Corpuscular Hemoglobin 29.8 pg (27.0-31.2); Mean Corpuscular Volume 97.4 fl (80-94); Mean Platelet Volume 7.3 fl (7.4-10.4); Monocytes # 0.8 K/mm3 (0.1-1.0); Neutrophils # 10.8 K/mm3 (1.8-7.8); Neutrophils % 83.1 % (37.0-80.0); Platelet Count 230 K/mm3 (142-424); Red Blood Count 4.81 M/mm3 (4.60-6.20); White Blood Count 12.9 K/mm3 (4.8-10.8)
[2020-05-17 11:39] LABS: Alanine Aminotransferase 11 U/L (12-78); Albumin Level 3.8 g/dl (3.5-5.0); Albumin/Globulin Ratio 1.2 (1.1-1.8); Alkaline Phosphatase 78 U/L (38-126); Anion Gap 10.6 mEq/L (5-15); Aspartate Amino Transferase 19 U/L (17-59); Bilirubin,Total 1.4 mg/dl (0.2-1.3); Blood Urea Nitrogen 13 mg/dl (9-20); Calcium 9.3 mg/dl (8.4-10.2); Carbon Dioxide 31 mmol/L (22.0-30.0); Chloride 102 mmol/L (98-107); Creatinine Clearance Estimated 95 mL/min (50-200); Estimated Glomerular Filt Rate 65 ml/min (>60); GFR (African American) 79 ML/MIN (>60); Globulin 3.1 g/dL (1.3-3.2); Glucose 115 mg/dl (74-100); Potassium 3.6 mmoL/L (3.5-5.1); Sodium 140 mmol/L (136-145); Total Protein,Serum 6.9 g/dl (6.3-8.2)
[2020-05-17 12:20] LABS: T4 (Thyroxine) 7.6 ug/dl (5.53-11.0)
[2020-05-17 12:34] LABS: Thyroid Stimulating Hormone 2.28 uIU/mL (0.465-4.68)
--- NOTE | 2020-05-17 12:56 | PC.NURSE ---
1105-PT HAD LABS DRAWN PRIOR TO ONCOLOGY APPT THEN LEFT FOR APPT; DUE TO RETURN FOR VELCADE. 1200-PT BEING DISCHARGED FROM CLINIC. NO NEW ORDERS WRITTEN FOR VELCADE TODAY.
[2020-05-18 12:18] LABS: Triiodothyronine (T3) Total 111 ng/dL (71-180)
[2020-05-18 18:46] LABS: Albumin 3.1 g/dL (2.9-4.4); Alpha-1-Globulin 0.3 g/dL (0.0-0.4); Alpha-2-Globulin 0.9 g/dL (0.4-1.0); Free Kappa Lt Chains 30.8 mg/L (3.3-19.4); Free Lambda Lt Chains 20.6 mg/L (5.7-26.3); Gamma Globulin 1.1 g/dL (0.4-1.8); Immunoglobulin A, Qn 153 mg/dL (61-437); Immunoglobulin G, Qn 986 mg/dL (603-1613); Protein, Total 6.3 g/dL (6.0-8.5)
[2020-05-18 18:55] LABS: Immunoglobulin M, Qn 35 mg/dL (15-143)
== END 2020-05-17 11:15 | disposition home or self-care (01) ==
LOC: INF 10:45
PROVIDERS: Visit Provider Internal Medicine Medical Oncology
DX: C90.00 Multiple myeloma not having achieved remission (principal); Z79.899 Other long term (current) drug therapy
CPT/HCPCS: 80053; 82784; 83883; 84155; 84165; 84436; 84443; 84480; 85025; 86334

== ENCOUNTER 2020-07-12 09:11 | Outpatient (CLI) | payer MEDICARE, BC, SELFPAY ==
[2020-07-12 09:13] VITALS: BMI 34.8
[2020-07-12 09:58] LABS: Chloride 108 mmol/L (98-107); Sodium 142 mmol/L (136-145)
[2020-07-12 10:00] LABS: Blood Urea Nitrogen 14 mg/dl (9-20); Creatinine Clearance Estimated 81 mL/min (50-200); Estimated Glomerular Filt Rate 54 ml/min (>60); GFR (African American) 65 ML/MIN (>60)
[2020-07-12 10:01] LABS: Alanine Aminotransferase 12 U/L (12-78); Albumin Level 3.6 g/dl (3.5-5.0); Albumin/Globulin Ratio 1.2 (1.1-1.8); Alkaline Phosphatase 82 U/L (38-126); Aspartate Amino Transferase 21 U/L (17-59); Bilirubin,Total 0.7 mg/dl (0.2-1.3); Calcium 9.3 mg/dl (8.4-10.2); Carbon Dioxide 28 mmol/L (22.0-30.0); Glucose 117 mg/dl (74-100); Total Protein,Serum 6.6 g/dl (6.3-8.2)
[2020-07-12 10:19] LABS: Basophils # 0.1 K/mm3 (0-0.2); Basophils % 1.1 % (0.1-2.0); Eosinophils # 0.5 K/mm3 (0.0-0.4); Eosinophils % 4.5 % (0.1-12.0); Hematocrit 44.7 % (42.0-52.0); Hemoglobin 14.1 g/dL (14.1-18.0); Lymphocytes # 1.2 K/mm3 (0.7-4.5); Mean Corpuscular HGB Conc 31.7 g/dL (31.8-35.4); Mean Corpuscular Hemoglobin 30.3 pg (27.0-31.2); Mean Corpuscular Volume 95.6 fl (80-94); Mean Platelet Volume 7.8 fl (7.4-10.4); Monocytes # 0.6 K/mm3 (0.1-1.0); Monocytes % 5.4 % (1.7-9.3); Neutrophils # 8.1 K/mm3 (1.8-7.8); Platelet Count 261 K/mm3 (142-424); Red Blood Count 4.67 M/mm3 (4.60-6.20); White Blood Count 10.4 K/mm3 (4.8-10.8)
[2020-07-13 19:10] LABS: Albumin 3.1 g/dL (2.9-4.4); Alpha-1-Globulin 0.2 g/dL (0.0-0.4); Alpha-2-Globulin 0.8 g/dL (0.4-1.0); Gamma Globulin 0.9 g/dL (0.4-1.8); Immunoglobulin A, Qn 166 mg/dL (61-437); Immunoglobulin G, Qn 964 mg/dL (603-1613); Protein, Total 5.9 g/dL (6.0-8.5)
[2020-07-13 23:23] LABS: Immunoglobulin M, Qn 33 mg/dL (15-143)
[2020-07-20 18:00] LABS: Free Lambda Lt Chains 21.3
== END 2020-07-12 11:12 | disposition home or self-care (01) ==
LOC: INF 09:11
PROVIDERS: Visit Provider Internal Medicine Medical Oncology
DX: C90.00 Multiple myeloma not having achieved remission (principal)
CPT/HCPCS: 80053; 82784; 83883; 84155; 84165; 85025; 86334

== ENCOUNTER 2020-08-13 13:03 | Day surgery (SDC) | payer MEDICARE, BC, SELFPAY ==
[2020-08-13 13:12] VITALS: BP 119/69; PULSE 85; RESP 20; TEMP 36.8; O2SAT 98; BMI 33.3
[2020-08-13 13:41] VITALS: BP 140/78; PULSE 74; RESP 18; O2SAT 97
[2020-08-13 13:43] VITALS: BP 142/78; PULSE 85; RESP 18; O2SAT 98
[2020-08-13 14:01] VITALS: BP 123/66; PULSE 68; RESP 18; O2SAT 98
--- NOTE | 2020-08-13 14:01 | P.PCN_ITS ---
- Procedure Date: 08/13/20 Time: 14:01 Anesthesiologist:: Holli Riley APRN Complications:: None Pre-procedure Diagnosis:: degenerative disc disease lumbar spine lumbar radiculopathy and back pain Post-procedure Diagnosis:: Same Indications for Procedure:: Patient is a very pleasant 75-year-old white male who presents today for intrathecal pain pump refill and reprogram. He rates his pain 0 out of 10 he is currently in a bupivacaine infusion of 2.5 mg/day. [facility] #[id number] reviewed and appropriate drug screens have been appropriate. Patient does not need any changes today. Procedure Details:: Informed consent was obtained and the risk and benefits of the procedure were explained to the patient. The patient was taken to the procedure room where noninvasive monitoring was placed including noninvasive blood pressure cuff and pulse oximeter. Patient's pump was interrogated. The area over the pump was cleansed with chlorhexidine as a cleansing solution. In sterile fashion the pump was accessed with a 22-gauge needle. Approximately 8 mL's were removed of the pump solution and discarded appropriately. The pump was then refilled with 20 mL's of bupivacaine 20 mg/mL. The needle was withdrawn and a bandage was placed over the puncture site. The infusion rate was reprogrammed to continue at 2.5 mg/day. The patient tolerated the procedure well. Plan and Disposition:: See the patient back at his next intrathecal pain pump refill and reprogram he has been instructed to call the office if he has any issues prior to next appointment. Dr. Queen has reviewed this note and agrees with this plan of care. This note was dictated using voice recognition software and may contain errors or omissions
== END 2020-08-13 14:02 | disposition home or self-care (01) ==
LOC: SC.PAINP 13:04
PROVIDERS: PCP Internal Medicine Adolescent Medicine; Visit Provider Clinical Nurse Specialist Family Health
DX: M51.16 Intervertebral disc disorders with radiculopathy, lumbar region (principal); Z45.1 Encounter for adjustment and management of infusion pump; I25.10 Atherosclerotic heart disease of native coronary artery without angina pectoris; I48.91 Unspecified atrial fibrillation; I11.0 Hypertensive heart disease with heart failure; I50.9 Heart failure, unspecified; E78.5 Hyperlipidemia, unspecified; F32.9 Major depressive disorder, single episode, unspecified; F03.90 Unspecified dementia, unspecified severity, without behavioral disturbance, psychotic disturbance, mood disturbance, and anxiety; C90.01 Multiple myeloma in remission; I27.20 Pulmonary hypertension, unspecified; Z85.828 Personal history of other malignant neoplasm of skin
CPT/HCPCS: 95991

== ENCOUNTER 2020-09-13 09:10 | Outpatient (CLI) | payer MEDICARE, BC, SELFPAY ==
[2020-09-13 09:15] VITALS: BMI 34.9
[2020-09-13 09:41] LABS: Basophils # 0.1 K/mm3 (0-0.2); Basophils % 0.7 % (0.1-2.0); Eosinophils # 0.4 K/mm3 (0.0-0.4); Eosinophils % 3.5 % (0.1-12.0); Hematocrit 45.7 % (42.0-52.0); Hemoglobin 14.6 g/dL (14.1-18.0); Lymphocytes # 1.4 K/mm3 (0.7-4.5); Lymphocytes % 12.4 % (10-50); Mean Corpuscular Hemoglobin 30.1 pg (27.0-31.2); Mean Corpuscular Volume 94.1 fl (80-94); Mean Platelet Volume 7.6 fl (7.4-10.4); Monocytes # 0.7 K/mm3 (0.1-1.0); Monocytes % 6.4 % (1.7-9.3); Neutrophils # 8.5 K/mm3 (1.8-7.8); Platelet Count 227 K/mm3 (142-424); Red Blood Count 4.86 M/mm3 (4.60-6.20); Red Cell Distribution Width 15.2 % (11.5-17.5)
[2020-09-13 09:43] LABS: Chloride 106 mmol/L (98-107); Potassium 3.6 mmoL/L (3.5-5.1); Sodium 140 mmol/L (136-145)
[2020-09-13 09:45] LABS: Blood Urea Nitrogen 12 mg/dl (9-20); Creatinine Clearance Estimated 96 mL/min (50-200); Estimated Glomerular Filt Rate 65 ml/min (>60); GFR (African American) 79 ML/MIN (>60)
[2020-09-13 09:46] LABS: Alanine Aminotransferase 11 U/L (12-78); Albumin Level 3.6 g/dl (3.5-5.0); Albumin/Globulin Ratio 1.2 (1.1-1.8); Alkaline Phosphatase 91 U/L (38-126); Anion Gap 9.6 mEq/L (5-15); Aspartate Amino Transferase 17 U/L (17-59); Bilirubin,Total 0.6 mg/dl (0.2-1.3); Calcium 9.3 mg/dl (8.4-10.2); Carbon Dioxide 28 mmol/L (22.0-30.0); Globulin 2.9 g/dL (1.3-3.2); Glucose 86 mg/dl (74-100); Total Protein,Serum 6.5 g/dl (6.3-8.2)
--- NOTE | 2020-09-13 10:16 | PC.NURSE ---
0930-LABS DRAWN BY LAB PERSONNEL FOR DR MORALES APPT TODAY.
[2020-09-14 16:14] LABS: Immunoglobulin A, Qn 206 mg/dL (61-437); Immunoglobulin G, Qn 1053 mg/dL (603-1613)
[2020-09-14 17:08] LABS: Immunoglobulin M, Qn 43 mg/dL (15-143)
[2020-09-17 23:01] LABS: Albumin 3.2; Alpha-1-Globulin 0.3; Alpha-2-Globulin 0.8; Protein, Total 6.1
[2020-09-17 23:02] LABS: Free Kappa Lt Chains 35.1; Free Lambda Lt Chains 20.3
== END 2020-09-13 09:30 | disposition home or self-care (01) ==
LOC: INF 09:14
PROVIDERS: Visit Provider Internal Medicine Medical Oncology
DX: C90.00 Multiple myeloma not having achieved remission (principal)
CPT/HCPCS: 36415; 80053; 82784; 83883; 84155; 84165; 85025; 86334

== ENCOUNTER 2020-11-12 14:47 | Day surgery (SDC) | payer MEDICARE, BC, SELFPAY ==
[2020-11-12 14:54] VITALS: BP 139/74; PULSE 81; RESP 19; TEMP 36.6; O2SAT 96; BMI 34.8
[2020-11-12 15:05] VITALS: BP 161/91; PULSE 80; RESP 18; O2SAT 95
[2020-11-12 15:10] VITALS: BP 161/91; PULSE 82; RESP 18; O2SAT 97
--- NOTE | 2020-11-12 15:17 | P.PCN_ITS ---
- Procedure Date: 11/12/20 Time: 15:17 Anesthesiologist:: Shannan Barraza APRN Complications:: None Pre-procedure Diagnosis:: Degenerative disc disease lumbar spine with lumbar radiculopathy symptoms, chronic back pain Post-procedure Diagnosis:: Same Indications for Procedure:: Patient is a 75-year-old white male who presents today for intrathecal pain pump refill and reprogram. He has been treated for degenerative disc disease lumbar spine with lumbar radiculopathy symptoms. He is currently managed with bupivacaine intrathecal therapy at 2.5 mg/day. Patient denies any side effects and is doing well. His pain is 0 out of 10. 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 The patient was taken to the procedure room where noninvasive monitoring was placed including noninvasive blood pressure cuff and pulse oximeter. Patient's pump was interrogated. The area over the pump was cleansed with chlorhexidine as a cleansing solution. In sterile fashion the pump was accessed with a 22-gauge needle. Approximately 8 mls of the pump solution was removed and discarded appropriately. The pump was then refilled with 20 mL's of bupivacaine 20 mg/mL. The needle was withdrawn and a bandage was placed over the puncture site. The infusion rate was reprogrammed at bupivacaine at 2.5 mg/day. The patient tolerated well with no complication. Plan and Disposition:: We will see the patient back at his next intrathecal refill and reprogram. Patient has been instructed to contact the clinic with any concerns before the next appointment. Dr. Queen has reviewed this note and agrees with this plan of care. This note was dictated using voice recognition software and make contain errors or omissions.
[2020-11-12 15:19] VITALS: BP 141/71; PULSE 73; RESP 18; O2SAT 95
== END 2020-11-12 15:20 | disposition home or self-care (01) ==
LOC: SC.PAINP 14:50
PROVIDERS: PCP Internal Medicine Adolescent Medicine; Visit Provider Clinical Nurse Specialist Family Health
DX: M51.16 Intervertebral disc disorders with radiculopathy, lumbar region (principal); G89.29 Other chronic pain; Z45.1 Encounter for adjustment and management of infusion pump
CPT/HCPCS: 95991

== ENCOUNTER 2020-11-15 09:00 | Outpatient (CLI) | payer MEDICARE, BC, SELFPAY ==
[2020-11-15 09:06] VITALS: BMI 34.8
--- NOTE | 2020-11-15 09:27 | PC.NURSE ---
0927- pt labs collected by CAILIN Sandra via butterfly needle in the pt's right arm. pt tolerated well. specimens walked to lab by this nurse and given to Avani in lab.
[2020-11-15 09:53] LABS: Chloride 109 mmol/L (98-107); Potassium 3.9 mmoL/L (3.5-5.1); Sodium 143 mmol/L (136-145)
[2020-11-15 09:55] LABS: Basophils # 0.1 K/mm3 (0-0.2); Basophils % 0.9 % (0.1-2.0); Blood Urea Nitrogen 15 mg/dl (9-20); Creatinine Clearance Estimated 95 mL/min (50-200); Eosinophils # 0.2 K/mm3 (0.0-0.4); Eosinophils % 1.9 % (0.1-12.0); Estimated Glomerular Filt Rate 65 ml/min (>60); GFR (African American) 79 ML/MIN (>60); Hematocrit 44.5 % (42.0-52.0); Hemoglobin 14.5 g/dL (14.1-18.0); Lymphocytes # 1.4 K/mm3 (0.7-4.5); Lymphocytes % 11.9 % (10-50); Mean Corpuscular HGB Conc 32.6 g/dL (31.8-35.4); Mean Corpuscular Hemoglobin 30.8 pg (27.0-31.2); Mean Corpuscular Volume 94.3 fl (80-94); Mean Platelet Volume 7.6 fl (7.4-10.4); Monocytes # 0.7 K/mm3 (0.1-1.0); Monocytes % 5.9 % (1.7-9.3); Neutrophils # 9.4 K/mm3 (1.8-7.8); Neutrophils % 79.4 % (37.0-80.0); Platelet Count 243 K/mm3 (142-424); Red Blood Count 4.72 M/mm3 (4.60-6.20); Red Cell Distribution Width 15.6 % (11.5-17.5); White Blood Count 11.9 K/mm3 (4.8-10.8)
[2020-11-15 09:56] LABS: Alanine Aminotransferase 9 U/L (12-78); Albumin Level 3.7 g/dl (3.5-5.0); Albumin/Globulin Ratio 1.3 (1.1-1.8); Alkaline Phosphatase 93 U/L (38-126); Anion Gap 8.9 mEq/L (5-15); Aspartate Amino Transferase 18 U/L (17-59); Bilirubin,Total 0.5 mg/dl (0.2-1.3); Calcium 8.9 mg/dl (8.4-10.2); Carbon Dioxide 29 mmol/L (22.0-30.0); Globulin 2.9 g/dL (1.3-3.2); Glucose 95 mg/dl (74-100); Total Protein,Serum 6.6 g/dl (6.3-8.2)
[2020-11-16 17:17] LABS: Immunoglobulin A, Qn 201 mg/dL (61-437); Immunoglobulin G, Qn 1045 mg/dL (603-1613); Immunoglobulin M, Qn 44 mg/dL (15-143)
[2020-11-30 09:18] LABS: Albumin 3.1; Protein, Total 5.9
[2020-11-30 09:19] LABS: Alpha-1-Globulin 0.2; Alpha-2-Globulin 0.7
[2020-11-30 09:21] LABS: Free Kappa Lt Chains 35.1; Free Lambda Lt Chains 19.5
== END 2020-11-15 09:34 | disposition home or self-care (01) ==
LOC: INF 09:05
PROVIDERS: Visit Provider Internal Medicine Medical Oncology
DX: C90.00 Multiple myeloma not having achieved remission (principal)
CPT/HCPCS: 80053; 82784; 83883; 84155; 84165; 85025; 86334

== ENCOUNTER 2021-02-11 13:08 | Day surgery (SDC) | payer MEDICARE, BC, SELFPAY ==
[2021-02-11 13:10] VITALS: BP 157/85; PULSE 66; RESP 18; TEMP 36.2; O2SAT 97
[2021-02-11 13:26] VITALS: BP 188/93; PULSE 62; RESP 18; O2SAT 95
[2021-02-11 13:27] VITALS: BP 180/89; PULSE 76; RESP 18; O2SAT 97
--- NOTE | 2021-02-11 13:31 | [facility].PMPROC ---
- Procedure Date: 02/11/21 Time: 13:31 Anesthesiologist:: Shannan Barraza APRN Complications:: None Pre-procedure Diagnosis:: Degenerative disc disease lumbar spine with lumbar radiculopathy symptoms Post-procedure Diagnosis:: Same Indications for Procedure:: Patient is a 75-year-old white male who presents today for intrathecal pain pump refill and reprogram. He is currently on bupivacaine at 2.5 mg/day and denies any side effects. He says that he has 0 out of 10 pain at this time. He is doing very well with his intrathecal therapy. He denies any numbness to his lower extremities. He does not need any changes at this time. His drug screen is appropriate. Physical exam General: Alert and oriented x 2, no acute distress, pleasant and cooperative, [on room air] Lungs: Respirations even and unlabored, symmetrical chest expansion Eyes: PERRL Musculoskeletal: Flexion and extension of [] [spine nonguarded, strength in upper and lower extremities [5/5], antalgic gait with use of wheelchair Neurological: Speech clear, [scaffold setter equal], no gross sensory deficit Procedure Details:: Informed consent was obtained and the risk and benefits of the procedure were explained to the patient. The patient was taken to the procedure room where noninvasive monitoring was placed including noninvasive blood pressure cuff and pulse oximeter. Patient's pump was interrogated. The area over the pump was cleansed with chlorhexidine as a cleansing solution. In sterile fashion the pump was accessed with a 22-gauge needle. Approximately 8.5 mls of the pump solution was removed and discarded appropriately. The pump was then refilled with 20 mL's of ropivacaine 10 mg per male. The needle was withdrawn and a bandage was placed over the puncture site. The infusion rate was reprogrammed at continued at bupivacaine 2.5 mg/day. The patient tolerated well with no complication. Plan and Disposition:: We will see the patient back in the clinic at the next intrathecal refill. Patient has been instructed to contact the clinic with any concerns before the next appointment. Dr. Queen has reviewed this note and agrees with this plan of care. This note was dictated using voice recognition software and make contain errors or omissions.
[2021-02-11 13:45] VITALS: BP 113/89; PULSE 67; RESP 20; O2SAT 97
== END 2021-02-11 13:46 | disposition home or self-care (01) ==
LOC: SC.PAINP 13:09
PROVIDERS: PCP Internal Medicine Adolescent Medicine; Visit Provider Clinical Nurse Specialist Family Health
DX: M51.16 Intervertebral disc disorders with radiculopathy, lumbar region (principal); Z45.1 Encounter for adjustment and management of infusion pump
CPT/HCPCS: 95991

== ENCOUNTER 2021-02-21 09:14 | Outpatient (CLI) | payer MEDICARE, BC, SELFPAY ==
[2021-02-21 09:21] VITALS: BMI 34.8
[2021-02-21 09:48] LABS: Basophils # 0.1 K/mm3 (0-0.2); Basophils % 0.7 % (0.1-2.0); Eosinophils # 0.3 K/mm3 (0.0-0.4); Eosinophils % 2.6 % (0.1-12.0); Hematocrit 47.6 % (42.0-52.0); Hemoglobin 14.8 g/dL (14.1-18.0); Lymphocytes # 1.5 K/mm3 (0.7-4.5); Lymphocytes % 12.7 % (10-50); Mean Corpuscular HGB Conc 31.2 g/dL (31.8-35.4); Mean Corpuscular Hemoglobin 30.7 pg (27.0-31.2); Mean Corpuscular Volume 98.6 fl (80-94); Mean Platelet Volume 8.3 fl (7.4-10.4); Monocytes # 0.6 K/mm3 (0.1-1.0); Monocytes % 5.2 % (1.7-9.3); Neutrophils # 9.1 K/mm3 (1.8-7.8); Neutrophils % 78.8 % (37.0-80.0); Platelet Count 249 K/mm3 (142-424); Red Blood Count 4.83 M/mm3 (4.60-6.20); Red Cell Distribution Width 15.2 % (11.5-17.5); White Blood Count 11.5 K/mm3 (4.8-10.8)
[2021-02-21 09:55] LABS: Chloride 104 mmol/L (98-107); Potassium 3.9 mmoL/L (3.5-5.1); Sodium 139 mmol/L (136-145)
[2021-02-21 09:58] LABS: Alanine Aminotransferase 10 U/L (12-78); Albumin Level 3.4 g/dl (3.5-5.0); Albumin/Globulin Ratio 1.2 (1.1-1.8); Alkaline Phosphatase 85 U/L (38-126); Anion Gap 8.9 mEq/L (5-15); Aspartate Amino Transferase 20 U/L (17-59); Bilirubin,Total 0.9 mg/dl (0.2-1.3); Blood Urea Nitrogen 13 mg/dl (9-20); Calcium 8.7 mg/dl (8.4-10.2); Carbon Dioxide 30 mmol/L (22.0-30.0); Creatinine Clearance Estimated 105 mL/min (50-200); Estimated Glomerular Filt Rate 72 ml/min (>60); GFR (African American) 88 ML/MIN (>60); Globulin 2.9 g/dL (1.3-3.2); Glucose 108 mg/dl (74-100); Total Protein,Serum 6.3 g/dl (6.3-8.2)
[2021-02-22 15:18] LABS: Immunoglobulin A, Qn 214 mg/dL (61-437); Immunoglobulin G, Qn 1007 mg/dL (603-1613); Immunoglobulin M, Qn 42 mg/dL (15-143)
[2021-02-22 18:28] LABS: Albumin 3.2 g/dL (2.9-4.4); Alpha-1-Globulin 0.3 g/dL (0.0-0.4); Alpha-2-Globulin 0.8 g/dL (0.4-1.0); Protein, Total 6.2 g/dL (6.0-8.5)
[2021-04-19 20:23] LABS: Free Kappa Lt Chains 44.4; Free Lambda Lt Chains 18.7
== END 2021-02-21 09:32 | disposition home or self-care (01) ==
PROVIDERS: PCP Internal Medicine Adolescent Medicine; Visit Provider Internal Medicine Medical Oncology
DX: C90.00 Multiple myeloma not having achieved remission (principal)
CPT/HCPCS: 36415; 80053; 82784; 83883; 84155; 84165; 85025; 86334

== ENCOUNTER 2021-05-13 12:31 | Day surgery (SDC) | payer MEDICARE, BC, SELFPAY ==
[2021-05-13 13:13] VITALS: BP 129/68; PULSE 75; RESP 20; TEMP 36.5; O2SAT 96
--- NOTE | 2021-05-13 13:15 | [facility].PMPROC ---
- Procedure Date: 05/13/21 Time: 13:15 Anesthesiologist:: FIDEL Andino Complications:: None Pre-procedure Diagnosis:: Degenerative disc disease of the lumbar spine with lumbar radiculopathy symptoms Post-procedure Diagnosis:: Same Indications for Procedure:: Patient is a pleasant 76-year-old male who presents today for intrathecal pain pump [refill] [and reprogram]. The patient is being treated for degenerative disc disease of the lumbar spine with lumbar radiculopathy symptoms. Patient rates pain a [there are 0] out of 10. Drug screen is appropriate. [facility]ector [id number] has been reviewed and is appropriate. ORT score is low risk. Physical exam General: Alert and oriented x3, no acute distress, pleasant and cooperative, [on room air] Lungs: Respirations even and unlabored, symmetrical chest expansion Eyes: PERRL Musculoskeletal: Flexion and extension of [lumbar] [spine] somewhat guarded secondary to pain, [antalgic gait noted] Neurological: Speech clear, no gross sensory deficit Procedure Details:: Informed consent was obtained and the risk and benefits of the procedure were explained to the patient. The patient was taken to the procedure room where noninvasive monitoring was placed including noninvasive blood pressure cuff and pulse oximeter. Patient's pump was interrogated. The area over the pump was cleansed with chlorhexidine as a cleansing solution. In sterile fashion the pump was accessed with a 22-gauge needle. Fluoroscopy was used to access the pump. approximately 8.3 mls of the pump solution was removed and discarded appropriately. The pump was then refilled with 20 mL's of bupivacaine 20 mg/mL. The needle was withdrawn and a bandage was placed over the puncture site. The infusion rate was reprogrammed at continued at bupivacaine 2.5 mg/day with PTC bolus of 0.25 mg/day. The patient tolerated well with no complication. Plan and Disposition:: We will see the patient back in the clinic at the next intrathecal refill. Patient has been instructed to contact the clinic with any concerns before the next appointment. Dr. Queen has reviewed this note and agrees with this plan of care. This note was dictated using voice recognition software and make contain errors or omissions.
[2021-05-13 13:16] VITALS: BP 134/70; PULSE 65; RESP 18; O2SAT 97
[2021-05-13 13:20] VITALS: BP 129/68; PULSE 75; RESP 20; TEMP 36.5; O2SAT 96; BMI 36.6
[2021-05-13 13:32] VITALS: PULSE 94; RESP 18; O2SAT 96
[2021-05-13 13:58] VITALS: BP 142/80; PULSE 79; RESP 20; O2SAT 96
== END 2021-05-13 13:43 | disposition home or self-care (01) ==
LOC: SC.PAINP 12:32
PROVIDERS: PCP Internal Medicine Adolescent Medicine; Visit Provider Clinical Nurse Specialist Family Health
DX: M51.16 Intervertebral disc disorders with radiculopathy, lumbar region (principal); Z45.1 Encounter for adjustment and management of infusion pump; E78.5 Hyperlipidemia, unspecified; I10 Essential (primary) hypertension; I48.91 Unspecified atrial fibrillation; I49.9 Cardiac arrhythmia, unspecified; I50.9 Heart failure, unspecified; M19.90 Unspecified osteoarthritis, unspecified site; Z87.19 Personal history of other diseases of the digestive system
CPT/HCPCS: 95991

== ENCOUNTER 2021-05-23 09:10 | Outpatient (CLI) | payer MEDICARE, BC, SELFPAY ==
[2021-05-23 09:20] VITALS: BMI 22.2
--- NOTE | 2021-05-23 09:25 | PC.NURSE ---
0925-pt here for lab draw; collected labs via peripheral stick;pt to oncology appointment
[2021-05-23 09:43] LABS: Basophils # 0.1 K/mm3 (0-0.2); Basophils % 0.7 % (0.1-2.0); Eosinophils # 0.2 K/mm3 (0.0-0.4); Eosinophils % 1.1 % (0.1-12.0); Hematocrit 45.3 % (42.0-52.0); Hemoglobin 14.4 g/dL (14.1-18.0); Lymphocytes # 1.1 K/mm3 (0.7-4.5); Mean Corpuscular HGB Conc 31.9 g/dL (31.8-35.4); Mean Corpuscular Hemoglobin 29.8 pg (27.0-31.2); Mean Corpuscular Volume 93.6 fl (80-94); Mean Platelet Volume 7.6 fl (7.4-10.4); Monocytes # 0.8 K/mm3 (0.1-1.0); Monocytes % 4.9 % (1.7-9.3); Neutrophils # 13.9 K/mm3 (1.8-7.8); Neutrophils % 86.2 % (37.0-80.0); Platelet Count 355 K/mm3 (142-424); Red Blood Count 4.84 M/mm3 (4.60-6.20); Red Cell Distribution Width 14.4 % (11.5-17.5); White Blood Count 16.1 K/mm3 (4.8-10.8)
[2021-05-23 09:44] LABS: MANUAL DIFFERENTIAL MANUAL DIFFERENTIAL (MANUAL DIFF)
[2021-05-23 09:48] LABS: Chloride 99 mmol/L (98-107); Potassium 4.4 mmoL/L (3.5-5.1); Sodium 137 mmol/L (136-145)
[2021-05-23 09:51] LABS: Alanine Aminotransferase 23 U/L (12-78); Albumin Level 3.5 g/dl (3.5-5.0); Alkaline Phosphatase 85 U/L (38-126); Anion Gap 11.4 mEq/L (5-15); Aspartate Amino Transferase 32 U/L (17-59); Bilirubin,Total 1.3 mg/dl (0.2-1.3); Blood Urea Nitrogen 19 mg/dl (9-20); Calcium 9.1 mg/dl (8.4-10.2); Carbon Dioxide 31 mmol/L (22.0-30.0); Creatinine Clearance Estimated 40 mL/min (50-200); Estimated Glomerular Filt Rate 42 ml/min (>60); GFR (African American) 51 ML/MIN (>60); Globulin 3.4 g/dL (1.3-3.2); Glucose 128 mg/dl (74-100); Total Protein,Serum 6.9 g/dl (6.3-8.2)
[2021-05-23 09:59] LABS: Eosinophils % 1 % (0-3); Lymphocytes % 9 % (10-50); Monocytes % 6 % (2-9); Neutrophils % 83 % (42-76); Platelet Estimate Normal; Rouleaux 1+; Total Cells Counted 100
[2021-05-27 13:45] LABS: Albumin 2.9 g/dL (2.9-4.4); Alpha-1-Globulin 0.4 g/dL (0.0-0.4); Alpha-2-Globulin 1.1 g/dL (0.4-1.0); Gamma Globulin 1.1 g/dL (0.4-1.8); Immunoglobulin A, Qn 278 mg/dL (61-437); Immunoglobulin G, Qn 1128 mg/dL (603-1613); Immunoglobulin M, Qn 36 mg/dL (15-143); Protein, Total 6.5 g/dL (6.0-8.5)
[2021-06-28 11:44] LABS: Free Kappa Lt Chains 78.5; Free Lambda Lt Chains 25.8
== END 2021-05-23 09:25 | disposition home or self-care (01) ==
LOC: INF 09:11
PROVIDERS: PCP Internal Medicine Adolescent Medicine; Visit Provider Internal Medicine Medical Oncology
DX: C90.00 Multiple myeloma not having achieved remission (principal)
CPT/HCPCS: 80053; 82784; 83883; 84155; 84165; 85007; 85025; 86334